=== PATIENT | male | born 1955 | race Caucasian/White ===

== ENCOUNTER 2020-03-29 08:04 | Outpatient (REF) | payer MEDICARE, OTHER, SELFPAY | END 2020-03-29 08:05 | disposition home or self-care (01) | LOC: HO.WFDLDS 08:04 | PROVIDERS: PCP Nurse Practitioner Family; Visit Provider Internal Medicine | DX: Z20.822 Contact with and (suspected) exposure to COVID-19 (principal) | CPT/HCPCS: 36415; C9803; U0003 ==

== ENCOUNTER 2020-05-05 16:24 | Outpatient (REF) | payer MEDICARE, OTHER, SELFPAY ==
--- NOTE | ~2020-05-05 | US_ITS ---
EXAMINATION: US SCROTUM CLINICAL INFORMATION: Scrotal swelling. 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 COMPARISON: None TECHNIQUE: A sonogram of the scrotum was performed assessing peters-scale appearance and color Doppler flow. Spectral Doppler analysis of the arterial and venous flow were performed in the testes bilaterally. FINDINGS: RIGHT: Right testicle measures 4.3 x 1.8 x 3.1 cm, volume 12.5 mL. No focal testicular parenchymal lesions are visualized. Spectral Doppler analysis of the arterial and venous flow is normal in the right testis. Right epididymal head is normal in size. There is a small epididymal head cyst measuring 0.4 x 0.4 x 0.4 cm. No right hydrocele or varicocele is seen. Right epididymal Doppler flow is normal. LEFT: Left testicle measures 4.2 x 1.6 x 3.0 cm, volume 10.5 mL. No focal testicular parenchymal lesions are visualized. There is a left scrotal pole measuring 0.3 x 0.2 x 0.2 cm. Spectral Doppler analysis of the arterial and venous flow is normal in the left testis. Left epididymal head is normal in size. There is small left epididymal head cyst with the largest cyst measuring 0.8 x 0.9 x 0.8 cm. No left hydrocele seen. There is a small left varicocele is seen. Left epididymal Doppler flow is normal. Posterior to the scrotal sac in the perineal area, there is a large fluid collection measuring 13.4 x 9.6 x 6.37 cm likely a scrotal seroma or a cyst from previous intervention. It does not communicate with the scrotal sac. There is an echogenic pump visualized in the posterior right scrotal wall. US/US scrotum IMPRESSION: Bilateral epididymal head cysts and a left varicocele. Normal testes with normal flow. The epididymides otherwise are homogeneous with normal vascular flow. Large posterior scrotal wall fluid collection/seroma or cyst. Also visualized more to the right side in the scrotal wall is an echogenic area likely a pump for artificial urinary sphincter.
== END 2020-05-05 16:25 | disposition home or self-care (01) ==
LOC: HO.US 16:24
PROVIDERS: Visit Provider Nurse Practitioner Family
DX: N50.89 Other specified disorders of the male genital organs (principal)
CPT/HCPCS: 76870

== ENCOUNTER 2020-05-10 09:48 | Outpatient (REF) | payer MEDICARE, OTHER, SELFPAY ==
[2020-05-10 14:08] LABS: Glucose Urine UA NEG (NEG); Leukocyte Esterase Urine 3+ (NEG); Nitrite Urine POS (NEG); UACC Culture Trigger YES; Urine Blood 1+ (NEG); Urine Ketones NEG (NEG); Urine Protein NEG (NEG-TRACE)
[2020-05-10 14:15] LABS: Appearance Urine HAZY; Color Urine YELLOW
[2020-05-10 14:42] LABS: Bacteria Urine 3+ /LPF; Squamous Epithelial Cell Urine TRACE /LPF; WBC Urine 50-75 /HPF (0-4)
== END 2020-05-10 09:49 | disposition home or self-care (01) ==
LOC: HO.10HDLNP 09:48
PROVIDERS: Visit Provider Nurse Practitioner Family
DX: Z87.440 Personal history of urinary (tract) infections (principal)
CPT/HCPCS: 81001; 81003; 87086; 87088; 87186

== ENCOUNTER 2020-06-10 10:46 | Outpatient (REF) | payer MEDICARE, OTHER, SELFPAY ==
[2020-06-10 14:30] LABS: MANUAL DIFF FLAG NO
[2020-06-10 14:34] LABS: Basophils Absolute Auto 0.1 X10*3/uL (0.0-0.2); Basophils Percent Auto 1.3 % (0-2); Eosinophils Absolute Auto 0.3 X10*3/uL (0.0-0.4); Eosinophils Percent Auto 5.5 % (0-4); Hematocrit 42.6 % (42-52); Hemoglobin 14.4 g/dl (14.0-18.0); Imm Gran Abs Auto 0.02 X10*3/uL (0.00-0.03); Imm Gran Pct Auto 0.4 % (0.0-0.4); Lymphocytes Percent Auto 20.9 % (20-40); Mean Corpuscular HGB Conc 33.8 g/dl (31.0-36.0); Mean Corpuscular Hemoglobin 35.2 pg (27.0-33.0); Mean Corpuscular Volume 104.2 fL (80-98); Mean Platelet Volume 10.7 fL (9.4-12.4); Monocytes Absolute Auto 0.7 X10*3/uL (0.1-1.2); Monocytes Percent Auto 14.3 % (2-11); Neutrophils Absolute Auto 2.7 X10*3/uL (2.0-8.3); Neutrophils Percent Auto 57.6 % (45-73); Platelet Count 213 X10*3/uL (160-400); Red Blood Count 4.09 X10*6/uL (4.60-5.80); Red Cell Distribution Width 13.6 % (11.0-16.0); White Blood Count 4.7 X10*3/uL (4.8-10.8)
[2020-06-10 14:57] LABS: Alanine Aminotransferase 11 U/L (0-40); Alkaline Phosphatase 59 U/L (39-117); Anion Gap 12 (12-20); Aspartate Amino Transferase 22 U/L (5-37); Bilirubin Total 0.9 mg/dL (0.0-1.0); Blood Urea Nitrogen 9 mg/dL (9-16); Calcium 9.2 mg/dL (8.4-10.2); Carbon Dioxide 32 mmol/L (22-29); Chloride 101 mmol/L (96-108); Cholesterol 234 mg/dL; Estimated Glomerular Filt Rate > 60; Glucose Fasting 87 mg/dL (60-99); HDL Cholesterol 76 mg/dL; LDL Cholesterol Calculated 148 mg/dl; Potassium 4.6 mmol/L (3.3-5.1); Sodium 140 mmol/L (135-145); Total Protein 6.9 g/dL (6.5-8.0); Triglycerides 53 mg/dL
[2020-06-10 15:19] LABS: TSH reflex Free T4 1.43 uIU/mL (0.32-4.0)
[2020-06-10 15:26] LABS: Glucose Urine UA NEG (NEG); Leukocyte Esterase Urine 2+ (NEG); Nitrite Urine POS (NEG); Specific Gravity - Urine 1.025 (1.005-1.025); Urine Blood 1+ (NEG); Urine Ketones NEG (NEG); Urine Protein NEG (NEG-TRACE)
[2020-06-10 15:39] LABS: Appearance Urine HAZY; Color Urine YELLOW
[2020-06-10 15:50] LABS: Prostate Specific Antigen Scr 0.12 ng/mL (<0.05-4.0)
[2020-06-10 16:19] LABS: Bacteria Urine 3+ /LPF; Squamous Epithelial Cell Urine TRACE /LPF; WBC Urine 30-49 /HPF (0-4)
== END 2020-06-10 10:47 | disposition home or self-care (01) ==
LOC: HO.WFDLDS 10:46
PROVIDERS: Visit Provider Nurse Practitioner Family
DX: R01.1 Cardiac murmur, unspecified (principal); E78.5 Hyperlipidemia, unspecified; R30.0 Dysuria; Z12.5 Encounter for screening for malignant neoplasm of prostate
CPT/HCPCS: 36415; 80053; 80061; 81001; 84153; 84443; 85025; 87086; 87088; 87186

== ENCOUNTER 2022-09-17 08:26 | Outpatient (REF) | payer MEDICARE, OTHER, SELFPAY ==
[2022-09-17 11:16] LABS: MANUAL DIFF FLAG NO
[2022-09-17 11:32] LABS: Appearance Urine Cloudy; Color Urine Dark Yellow; Glucose Urine UA Negative (Negative); Leukocyte Esterase Urine Moderate (2+) (Negative); Nitrite Urine Positive (Negative); PH 6.5 (5.0-9.0); Specific Gravity - Urine 1.025 (1.005-1.025); UMIC TRIGGER UACC YES; Urine Blood Trace (Negative); Urine Ketones Negative (Negative); Urine Protein 30 (1+) mg/dL (Neg-Trace)
[2022-09-17 11:47] LABS: Basophils Absolute Auto 0.1 X10*3/uL (0.0-0.2); Basophils Percent Auto 1.3 % (0-2); Eosinophils Absolute Auto 0.3 X10*3/uL (0.0-0.4); Eosinophils Percent Auto 5.8 % (0-4); Hemoglobin 14.7 g/dl (14.0-18.0); Imm Gran Abs Auto 0.01 X10*3/uL (0.00-0.03); Imm Gran Pct Auto 0.2 % (0.0-0.4); Lymphocytes Absolute Auto 0.9 X10*3/uL (1.2-4.9); Lymphocytes Percent Auto 19.3 % (20-40); Mean Corpuscular HGB Conc 34.2 g/dl (31.0-36.0); Mean Corpuscular Hemoglobin 35.6 pg (27.0-33.0); Mean Corpuscular Volume 104.1 fL (80.0-98.0); Monocytes Absolute Auto 0.7 X10*3/uL (0.1-1.2); Monocytes Percent Auto 14.7 % (2-11); Neutrophils Absolute Auto 2.6 x10*3/uL (2.0-8.3); Neutrophils Percent Auto 58.7 % (45-73); Platelet Count 261 X10*3/uL (160-400); Red Blood Count 4.13 X10*6/uL (4.60-5.80); White Blood Count 4.5 X10*3/uL (4.8-10.8)
[2022-09-17 11:50] LABS: Bacteria Urine 4+ (None Seen); Other Crystals Urine Present; RBC Urine 0-2 /HPF (0-2); UACC Culture Trigger YES; WBC Clumps Urine Present; WBC Urine 21-50 /HPF (0-5)
[2022-09-17 12:15] LABS: Prostate Specific Antigen Scr 0.21 ng/mL (<0.05-4.0)
[2022-09-17 12:34] LABS: Alanine Aminotransferase 13 U/L (0-40); Albumin Level 3.9 g/dL (3.5-5.0); Alkaline Phosphatase 63 U/L (39-117); Anion Gap 12 (12-20); Aspartate Amino Transferase 24 U/L (5-37); Bilirubin Total 1.4 mg/dL (0.0-1.0); Blood Urea Nitrogen 12 mg/dL (9-16); Calcium 9.4 mg/dL (8.4-10.2); Carbon Dioxide 27 mmol/L (22-29); Chloride 106 mmol/L (96-108); Cholesterol 233 mg/dL; Estimated Glomerular Filt Rate > 60; Glucose Fasting 88 mg/dL (60-99); HDL Cholesterol 73 mg/dL; LDL Cholesterol Calculated 148 mg/dl; Potassium 4.1 mmol/L (3.3-5.1); Sodium 141 mmol/L (135-145); TSH reflex Free T4 1.48 uIU/mL (0.32-4.0); Total Protein 7.1 g/dL (6.5-8.0); Triglycerides 61 mg/dL
== END 2022-09-17 08:27 | disposition home or self-care (01) ==
LOC: HO.WFDLDS 08:26
PROVIDERS: Visit Provider Nurse Practitioner Family
DX: Z12.5 Encounter for screening for malignant neoplasm of prostate (principal); E78.5 Hyperlipidemia, unspecified; G47.30 Sleep apnea, unspecified; Q89.01 Asplenia (congenital); R30.0 Dysuria; Z87.440 Personal history of urinary (tract) infections
CPT/HCPCS: 36415; 80053; 80061; 81001; 84153; 84443; 85025; 87086; 87088; 87186

== ENCOUNTER 2022-11-23 09:18 | Outpatient (REF) | payer MEDICARE, OTHER, SELFPAY ==
[2022-11-23 11:45] LABS: MANUAL DIFF FLAG NO
[2022-11-23 11:49] LABS: Basophils Absolute Auto 0.1 X10*3/uL (0.0-0.2); Basophils Percent Auto 0.8 % (0-2); Eosinophils Absolute Auto 0.2 X10*3/uL (0.0-0.4); Eosinophils Percent Auto 3.1 % (0-4); Hematocrit 43.6 % (42.0-52.0); Hemoglobin 14.8 g/dl (14.0-18.0); Imm Gran Abs Auto 0.03 X10*3/uL (0.00-0.03); Imm Gran Pct Auto 0.4 % (0.0-0.4); Lymphocytes Percent Auto 13.7 % (20-40); Mean Corpuscular HGB Conc 33.9 g/dl (31.0-36.0); Mean Corpuscular Hemoglobin 35.5 pg (27.0-33.0); Mean Corpuscular Volume 104.6 fL (80.0-98.0); Monocytes Percent Auto 13.4 % (2-11); Neutrophils Absolute Auto 4.9 x10*3/uL (2.0-8.3); Neutrophils Percent Auto 68.6 % (45-73); Platelet Count 273 X10*3/uL (160-400); Red Blood Count 4.17 X10*6/uL (4.60-5.80); Red Cell Distribution Width 13.2 % (11.0-16.0); White Blood Count 7.2 X10*3/uL (4.8-10.8)
[2022-11-23 12:24] LABS: Alanine Aminotransferase 13 U/L (0-40); Albumin Level 3.9 g/dL (3.5-5.0); Alkaline Phosphatase 69 U/L (39-117); Anion Gap 14 (12-20); Aspartate Amino Transferase 22 U/L (5-37); Bilirubin Total 1.1 mg/dL (0.0-1.0); Blood Urea Nitrogen 10 mg/dL (9-16); Calcium 9.7 mg/dL (8.4-10.2); Carbon Dioxide 25 mmol/L (22-29); Chloride 105 mmol/L (96-108); Cholesterol 179 mg/dL (<200); Estimated Glomerular Filt Rate > 60; Ferritin 120 ng/mL (20-250); Glucose Fasting 98 mg/dL (60-99); HDL Cholesterol 68 mg/dL (>40); Iron 121 mcg/dL (45-160); LDL Cholesterol Calculated 99 mg/dL (<100); Percent Iron Saturation 47 % (15-50); Potassium 3.9 mmol/L (3.3-5.1); Sodium 140 mmol/L (135-145); Total Iron Binding Capacity 258 mcg/dL (228-428); Total Protein 7.3 g/dL (6.5-8.0); Triglycerides 64 mg/dL (<150); Unsaturated Iron Binding 137 ug/dL
[2022-11-23 12:37] LABS: Folate 12.6 ng/mL (> or = 4.0); Vitamin B12 304 pg/mL (200-900)
== END 2022-11-23 09:19 | disposition home or self-care (01) ==
LOC: HO.WFDLDS 09:18
PROVIDERS: Visit Provider Nurse Practitioner Family
DX: Q89.01 Asplenia (congenital) (principal); E78.5 Hyperlipidemia, unspecified; D64.9 Anemia, unspecified; R53.83 Other fatigue
CPT/HCPCS: 36415; 80053; 80061; 82607; 82728; 82746; 83540; 85025

== ENCOUNTER 2023-02-22 10:19 | Outpatient (REF) | payer MEDICARE, OTHER, SELFPAY ==
[2023-02-22 10:39] LABS: Appearance Urine Cloudy; Color Urine Yellow; Glucose Urine UA Negative (Negative); Leukocyte Esterase Urine Moderate (2+) (Negative); Nitrite Urine Positive (Negative); PH 5.5 (5.0-9.0); UMIC TRIGGER UACC YES; Urine Blood Small (1+) (Negative); Urine Ketones Negative (Negative); Urine Protein Trace mg/dL (Neg-Trace)
[2023-02-22 11:13] LABS: Bacteria Urine 4+ (None Seen); Hyaline Casts Urine 0-2 /LPF (0-2); RBC Urine 0-2 /HPF (0-2); Squamous Epithelial Cell Urine 0-2 /HPF (0-2); UACC Culture Trigger YES; WBC Urine 21-50 /HPF (0-5)
== END 2023-02-22 10:20 | disposition home or self-care (01) ==
LOC: HO.LNP 10:19
PROVIDERS: Visit Provider Internal Medicine
DX: N39.0 Urinary tract infection, site not specified (principal)
CPT/HCPCS: 81001; 87086; 87088; 87186

== ENCOUNTER 2023-02-27 08:50 | Outpatient (AMB) | payer MEDICARE, OTHER, SELFPAY ==
--- NOTE | 2023-02-27 08:52 | A.OFFPC_ITS ---
Vital Signs 02/27/23 08:57 Height 5 ft 8 in Weight 169 lb 4 oz BMI 25.7 BP 126/82 Blood Pressure Location Rt brachial Position Sitting Pulse 70 Pulse Source Pulse Oximeter Pulse Oximetry (%) 98 Oxygen Delivery Method Room Air Intake Visit Reasons: Annual PE Intake Note: Patient here for physical exam and would like an Order to recheck UA in about 3 weeks since pt has had a UTI since last . Allergies lisinopril [LISINOPRIL] Allergy (Intermediate, Verified 02/27/23 08:59) COUGH metronidazole [Flagyl] Adverse Reaction (Unknown, Verified 02/27/23 08:59) GI Tobacco use date assessed: 09/19/22 Fall risk assessment: No Falls in past year Last assessed Fall Risk: 02/27/23 Dental Screening Dental Screen Date: 02/27/23 Did you have a dental visit in the last 12 months?: Yes Did you have a dental problem in the last 6 months where you did not have access to dental care?: No Was dental information given to patient?: Patient has dentist HPI Annual PE HPI Details NOT HERE FOR A PE. Pt reports UTI symptoms currently. He is currently taking an antibiotic. Will order UA/culture. Denies fever, chills, flank pain, and hematuria. Pt has a hx of radical prostatectomy several years ago. Pt's PSA has been increasing slightly. Will refer back to [facility] clinic. Pt has an extensive and traumatic history. Pt is waiting to see neuropsych. He is starting to be very forgetful with short-term memory loss. There is ? of dementia. 28/30 on mini mental. 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 Brother Pulmonary fibrosis Sister Leukemia Mental health disorder Sister Lupus Sister Breast cancer Social History Housing: House Alcohol intake: current Alcohol intake frequency: a few times a week Alcohol type: beer Patient Tobacco Use Status: Former Tobacco user Quit Date: quit 30 years ago Tobacco use type: Cigarette e-Cigarette/Vaping Use: Never Used service: No Current occupational status: retired Current occupational exposures/hazards: No Cognitive needs: No Hearing needs: No Vision needs: No Questionnaire AUDIT C Alcohol Use Questionnaire (AUDIT-C) 1. How often do you have a drink containing alcohol?: 2-3 times a week 2. How many drinks containing alcohol do you have on a typical day when you are drinking?: 1 or 2 3. How often do you have six or more drinks on one occasion?: Never Total Score: 3 Score Reviewed/Action Taken: No Review of Systems Const Reports as per HPI Physical exam (Primary Care) Vital Signs: Last Vital Signs Pulse 70 02/27/23 08:57 BP 126/82 02/27/23 08:57 Pulse Ox 98 02/27/23 08:57 Oxygen Delivery Method Room Air 02/27/23 08:57 BMI result Body Mass Index 25.7 Tobacco/Smoking Status: Tobacco use Status Tobacco use date assessed 09/19/22 02/27/23 08:52 Patient Tobacco Use Status Former Tobacco user 02/27/23 08:52 Tobacco use type Cigarette 02/27/23 08:52 e-Cigarette/Vaping Use Never Used 02/27/23 08:52 Const General: cooperative Orientation/consciousness: patient oriented x3 Resp Effort & Inspection: normal respiratory effort Auscultation: clear to auscultation bilaterally Cardio Rate: regular rate Rhythm: regular rhythm Heart sounds: S1 normal heart sound present and S2 normal heart sound present Neuro General: patient oriented x3 Cranial nerves: Yes CN's II-XII intact bilaterally Psych Appearance: grossly normal Mental Status: mental status grossly normal Speech and movement: Normal speech and movement present Affect: normal affect Attitude: cooperative Thought process: Normal thought process present Thought content: Normal thought content present Insight: Good insight present (Psych) Judgement: Good judgement present (Psych) Assessment and Plan Assessment & Plan (1) UTI (urinary tract infection): Code(s): N39.0 - Urinary tract infection, site not specified Plan: UA/culture ordered (2) Screening PSA (prostate specific antigen): Code(s): Z12.5 - Encounter for screening for malignant neoplasm of prostate Plan: PSA ordered Plan The patient agreed to the use of a medical sales consultant for this encounter. Scribed for MARY ANN Kenney-BC by timothy Ott scribe, on 02/27/2023 at 09:05 EST. Orders: Orders Urine Culture Today N39.0 - Urinary tract infection, site not specified UA CC w/rflx Micro + Cult Today N39.0 - Urinary tract infection, site not specified Prostate Specific Antigen Scr Today Z12.5 - Encounter for screening for malignant neoplasm of prostate Referrals Urology Referral Z12.5 - Encounter for screening for malignant neoplasm of prostate Medications: New amoxicillin-pot clavulanate 875-125 mg 1 tab PO BID 20 tabs 1RF 10 days Coding Level of Care Code Est Pt Level 3 (87908) Diagnoses UTI (urinary tract infection) N39.0 Screening PSA (prostate specific antigen) Z12.5
[2023-02-27 08:57] VITALS: BP 126/82; PULSE 70; O2SAT 98; BMI 25.7
== END 2023-02-27 12:06 | disposition home or self-care (01) ==
PROVIDERS: PCP Nurse Practitioner Family; Visit Provider Nurse Practitioner Family
DX: N39.0 Urinary tract infection, site not specified (principal); Z12.5 Encounter for screening for malignant neoplasm of prostate
CPT/HCPCS: 99213

== ENCOUNTER 2023-02-27 09:51 | Outpatient (REF) | payer MEDICARE, OTHER, SELFPAY ==
[2023-02-27 13:39] LABS: Appearance Urine Turbid; Color Urine Yellow; Glucose Urine UA Negative (Negative); Leukocyte Esterase Urine Trace (Negative); Nitrite Urine Negative (Negative); Specific Gravity - Urine 1.025 (1.005-1.025); UMIC TRIGGER UACC YES; Urine Blood Negative (Negative); Urine Ketones Trace mg/dL (Negative); Urine Protein Negative (Neg-Trace)
[2023-02-27 13:43] LABS: Bacteria Urine None Seen (None Seen); Hyaline Casts Urine 0-2 /LPF (0-2); RBC Urine 0-2 /HPF (0-2); UACC Culture Trigger YES
[2023-02-27 14:07] LABS: Prostate Specific Antigen Scr 0.26 ng/mL (<0.05-4.0)
== END 2023-02-27 09:52 | disposition home or self-care (01) ==
LOC: HO.HMGCLDS 09:51
PROVIDERS: PCP Nurse Practitioner Family; Visit Provider Nurse Practitioner Family
DX: N39.0 Urinary tract infection, site not specified (principal); Z12.5 Encounter for screening for malignant neoplasm of prostate
CPT/HCPCS: 36415; 81001; 84153; 87086

== ENCOUNTER 2023-06-26 09:27 | Outpatient (AMB) | payer MEDICARE, OTHER, SELFPAY ==
--- NOTE | 2023-06-26 09:34 | A.OFFPC_ITS ---
Vital Signs 06/26/23 09:43 Weight 169 lb BP 120/80 Blood Pressure Location Lt brachial Position Sitting Pulse 66 Pulse Source Pulse Oximeter Pulse Oximetry (%) 98 Oxygen Delivery Method Room Air Intake Visit Reasons: 4 Month F/U Labs Intake Note: Patient here for severe sinus pressure. Allergies lisinopril [LISINOPRIL] Allergy (Intermediate, Verified 06/26/23 12:53) COUGH metronidazole [Flagyl] Adverse Reaction (Unknown, Verified 06/26/23 12:53) GI Medication List - Last Reconciled 06/26/23 by TREVOR Ward amoxicillin-pot clavulanate 875-125 mg 1 tab PO BID 10 days donepezil 5 mg PO BEDTIME 90 days rosuvastatin (Crestor) 5 mg PO BEDTIME valacyclovir 1,000 mg PO DAILY PRN Tobacco use date assessed: 06/26/23 Fall risk assessment: No Falls in past year Last assessed Fall Risk: 06/26/23 Dental Screening Dental Screen Date: 06/26/23 Did you have a dental visit in the last 12 months?: Yes Did you have a dental problem in the last 6 months where you did not have access to dental care?: No Was dental information given to patient?: Patient has dentist HPI 4 Month F/U Labs HPI Details Pt c/o increased sinus pressure. He reports discomfort above and below his eye. Recommended OTC cetirizine up to 2 tabs bid. Denies fever, chills, and dizziness. Pt is following up with oncology due to prostate cancer. Memory loss: Pt scored 28/30 on mini mental exam previously. He reports ongoing memory loss. Starting donepezil today. Dyslipidemia: On rosuvastatin 5mg. Will order labs. Denies chest pain, shortness of breath, and dizziness. 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 Brother Pulmonary fibrosis Sister Leukemia Mental health disorder Sister Lupus Sister Breast cancer Social History Housing: House Alcohol intake: current Alcohol intake frequency: a few times a week Alcohol type: beer Patient Tobacco Use Status: Former Tobacco user Quit Date: quit 30 years ago Tobacco use type: Cigarette e-Cigarette/Vaping Use: Never Used service: No Current occupational status: retired Current occupational exposures/hazards: No Cognitive needs: No Hearing needs: No Vision needs: No Questionnaire AUDIT C Alcohol Use Questionnaire (AUDIT-C) 1. How often do you have a drink containing alcohol?: 4 or more times a week 2. How many drinks containing alcohol do you have on a typical day when you are drinking?: 1 or 2 3. How often do you have six or more drinks on one occasion?: Never Total Score: 4 Score Reviewed/Action Taken: No Review of Systems Const Reports as per HPI Physical exam (Primary Care) Vital Signs: Last Vital Signs Pulse 66 06/26/23 09:43 BP 120/80 06/26/23 09:43 Pulse Ox 98 06/26/23 09:43 Oxygen Delivery Method Room Air 06/26/23 09:43 Tobacco/Smoking Status: Tobacco use Status Tobacco use date assessed 06/26/23 06/26/23 09:44 Patient Tobacco Use Status Former Tobacco user 06/26/23 09:36 Tobacco use type Cigarette 06/26/23 09:36 e-Cigarette/Vaping Use Never Used 06/26/23 09:36 Const General: cooperative Orientation/consciousness: patient oriented x3 Resp Effort & Inspection: normal respiratory effort Auscultation: clear to auscultation bilaterally Cardio Rate: regular rate Rhythm: regular rhythm Heart sounds: S1 normal heart sound present and S2 normal heart sound present Neuro General: patient oriented x3 Extrem Right lower extremity: no edema Left lower extremity: no edema Psych Appearance: grossly normal Mental Status: mental status grossly normal Speech and movement: Normal speech and movement present Affect: normal affect Attitude: cooperative Thought process: Normal thought process present Thought content: Normal thought content present Insight: Good insight present (Psych) Judgement: Good judgement present (Psych) Results AMB Urinalysis, Automated UA Leukoctes 15 Giovanna/uL Last Edit by Albert Andrews CCM on 06/26/23 09:5 4 UA Nitrite Negative Last Edit by Albert Andrews [facility] on 06/26/23 09:54 UA Urobilinogen 0.2 mg/dL Last Edit by Albert Andrews [facility] on 06/26/23 09:54 UA Protein 15 mg/dL Last Edit by Albert Andrews [facility] on 06/26/23 09:54 UA pH 6.0 Last Edit by Albert Andrews [facility] on 06/26/23 09:54 UA Blood 0 Griffin/uL Last Edit by Albert Andrews [facility] on 06/26/23 09:54 UA Specific [place] 1.015 Last Edit by Albert Andrews [facility] on 06/26/23 09:54 UA Ketone Negative Last Edit by Albert Andrews [facility] on 06/26/23 09:54 UA Bilirubin 1 mg/dL Last Edit by Albert Andrews [facility] on 06/26/23 09:54 UA Glucose 0 mg/dL Last Edit by Albert Andrews [facility] on 06/26/23 09:54 Results Reviewed Results Reviewed: Laboratory Last Values Urine pH (Auto) 6.0 06/26/23 09:53 Specific [place] (Auto) 1.015 06/26/23 09:53 Urine Protein (Auto) 15 mg/dL 06/26/23 09:53 Glucose (UA)(Auto) 0 mg/dL 06/26/23 09:53 Urine Ketones (Auto) Negative 06/26/23 09:53 Urine Blood (Auto) 0 Griffin/uL 06/26/23 09:53 Urine Nitrite (Auto) Negative 06/26/23 09:53 Urine Bilirubin (Auto) 1 mg/dL 06/26/23 09:53 Urine Urobilinogen (Auto) 0.2 mg/dL 06/26/23 09:53 Leukocyte Esterase (Auto) 15 Giovanna/uL 06/26/23 09:53 Assessment and Plan Assessment & Plan (1) Dyslipidemia: Code(s): E78.5 - Hyperlipidemia, unspecified Plan: Labs ordered (2) Memory loss: Code(s): R41.3 - Other amnesia Plan: starting donepezil, pt will contact me with progress Plan The patient agreed to the use of a medical service technician for this encounter. Scribed for MARY ANN Kenney-NATY by Batsheva Sánchez medical service technician, on 06/26/2023 at 09:50 EST. Orders: Orders TSH reflex Free T4 Today E78.5 - Hyperlipidemia, unspecified UA CC w/rflx Micro + Cult Today E78.5 - Hyperlipidemia, unspecified Lipid Panel Today E78.5 - Hyperlipidemia, unspecified AMB Urinalysis Automated Today Z13.9 - Encounter for screening, unspecified Complete Blood Count Auto Diff Today E78.5 - Hyperlipidemia, unspecified Comprehensive [place]. Panel Fast Today E78.5 - Hyperlipidemia, unspecified Medications: New donepezil 5 mg PO BEDTIME 90 tabs 0RF 90 days Refilled amoxicillin-pot clavulanate 875-125 mg 1 tab PO BID 20 tabs 1RF 10 days Coding Level of Care Code Est Pt Level 3 (71148) Diagnoses Dyslipidemia E78.5 Memory loss R41.3
[2023-06-26 09:43] VITALS: BP 120/80; PULSE 66; O2SAT 98
== END 2023-06-26 12:17 | disposition home or self-care (01) ==
PROVIDERS: PCP Nurse Practitioner Family; Visit Provider Nurse Practitioner Family
DX: E78.5 Hyperlipidemia, unspecified (principal); R41.3 Other amnesia; Z13.9 Encounter for screening, unspecified
CPT/HCPCS: 81003; 99213

== ENCOUNTER 2023-07-08 09:53 | Outpatient (REF) | payer MEDICARE, OTHER, SELFPAY ==
[2023-07-08 11:13] LABS: MANUAL DIFF FLAG NO
[2023-07-08 11:27] LABS: Basophils Absolute Auto 0.1 X10*3/uL (0.0-0.2); Basophils Percent Auto 1.8 % (0-2); Eosinophils Absolute Auto 0.3 X10*3/uL (0.0-0.4); Eosinophils Percent Auto 6.5 % (0-4); Hematocrit 45.7 % (42.0-52.0); Hemoglobin 15.4 g/dl (14.0-18.0); Imm Gran Abs Auto 0.02 X10*3/uL (0.00-0.03); Imm Gran Pct Auto 0.4 % (0.0-0.4); Lymphocytes Absolute Auto 1.2 X10*3/uL (1.2-4.9); Lymphocytes Percent Auto 23.6 % (20-40); Mean Corpuscular HGB Conc 33.7 g/dl (31.0-36.0); Mean Corpuscular Hemoglobin 35.1 pg (27.0-33.0); Mean Corpuscular Volume 104.1 fL (80.0-98.0); Mean Platelet Volume 10.6 fL (9.4-12.4); Monocytes Absolute Auto 0.8 X10*3/uL (0.1-1.2); Monocytes Percent Auto 15.2 % (2-11); Neutrophils Absolute Auto 2.6 x10*3/uL (2.0-8.3); Neutrophils Percent Auto 52.5 % (45-73); Platelet Count 279 X10*3/uL (160-400); Red Blood Count 4.39 X10*6/uL (4.60-5.80); Red Cell Distribution Width 13.8 % (11.0-16.0)
[2023-07-08 11:32] LABS: Appearance Urine Cloudy; Color Urine Yellow; Glucose Urine UA Negative (Negative); Leukocyte Esterase Urine Moderate (2+) (Negative); Nitrite Urine Positive (Negative); PH 7.5 (5.0-9.0); UMIC TRIGGER UACC YES; Urine Blood Trace (Negative); Urine Ketones Negative (Negative); Urine Protein Trace mg/dL (Neg-Trace)
[2023-07-08 11:51] LABS: Alanine Aminotransferase 27 U/L (0-40); Albumin Level 3.9 g/dL (3.5-5.0); Alkaline Phosphatase 62 U/L (39-117); Anion Gap 11 (12-20); Aspartate Amino Transferase 50 U/L (5-37); Bilirubin Total 1.2 mg/dL (0.0-1.0); Blood Urea Nitrogen 10 mg/dL (9-16); Calcium 9.5 mg/dL (8.4-10.2); Carbon Dioxide 29 mmol/L (22-29); Chloride 105 mmol/L (96-108); Cholesterol 172 mg/dL (<200); Estimated Glomerular Filt Rate > 60; Glucose Fasting 92 mg/dL (60-99); HDL Cholesterol 71 mg/dL (>40); LDL Cholesterol Calculated 88 mg/dL (<100); Potassium 4.4 mmol/L (3.3-5.1); Sodium 141 mmol/L (135-145); Total Protein 7.5 g/dL (6.5-8.0); Triglycerides 67 mg/dL (<150)
[2023-07-08 12:10] LABS: TSH reflex Free T4 1.64 uIU/mL (0.32-4.0)
[2023-07-08 12:32] LABS: Bacteria Urine 4+ (None Seen); Squamous Epithelial Cell Urine 0-2 /HPF (0-2); UACC Culture Trigger YES; WBC Urine >50 /HPF (0-5)
== END 2023-07-08 09:54 | disposition home or self-care (01) ==
LOC: HO.WFDLDS 09:53
PROVIDERS: Visit Provider Nurse Practitioner Family
DX: E78.5 Hyperlipidemia, unspecified (principal); R82.90 Unspecified abnormal findings in urine
CPT/HCPCS: 36415; 80053; 80061; 81001; 84443; 85025; 87086; 87088; 87186

== ENCOUNTER 2023-07-17 09:42 | Outpatient (REF) | payer MEDICARE, OTHER, SELFPAY ==
--- NOTE | ~2023-07-17 | US_ITS ---
EXAMINATION: US ABDOMEN COMPLETE CLINICAL INFORMATION: Abnormal levels of other serum enzymes. COMPARISON: None available. TECHNIQUE: Real-time imaging of the abdominal viscera. FINDINGS: PANCREAS: The pancreas appears unremarkable, without masses or ductal dilatation, with the exception of the tail which is obscured by bowel gas. ABDOMINAL AORTA: Atherosclerotic changes in the aorta without evidence of aneurysm. INFERIOR VENA CAVA: Visualized portions are normal. LIVER: Normal. The liver is normal in size. The liver contour is normal. Parenchymal echogenicity is normal. No focal hepatic lesion. There is no intrahepatic biliary duct dilatation seen. GALLBLADDER: Normal. The gallbladder is physiologically distended without evidence of stones, sludge, polyps, wall thickening or pericholecystic fluid. COMMON BILE DUCT: Normal in caliber measuring 0.51 cm in diameter. RIGHT KIDNEY: A benign 1.4 cm Bosniak class I renal cyst is noted which requires no additional imaging or followup. No solid renal masses are seen. No hydronephrosis or renal calculi. The kidney measures 10.8 cm in maximum dimension. LEFT KIDNEY: No renal masses. No hydronephrosis. No renal calculi. The kidney measures 11.4 cm in maximum dimension. SPLEEN: The spleen is not seen. FREE FLUID: None. US/US abdomen complete IMPRESSION: No significant abnormality is seen.
== END 2023-07-17 09:43 | disposition home or self-care (01) ==
LOC: HO.HMGCX 09:42
PROVIDERS: PCP Nurse Practitioner Family; Visit Provider Nurse Practitioner Family
DX: R74.8 Abnormal levels of other serum enzymes (principal)
CPT/HCPCS: 76700

== ENCOUNTER 2023-08-07 11:14 | Outpatient (REF) | payer MEDICARE, OTHER, SELFPAY ==
[2023-08-07 14:30] LABS: Appearance Urine Cloudy; Color Urine Yellow; Glucose Urine UA Negative (Negative); Leukocyte Esterase Urine Moderate (2+) (Negative); Nitrite Urine Positive (Negative); PH 5.5 (5.0-9.0); Specific Gravity - Urine 1.025 (1.005-1.025); UMIC TRIGGER UACC YES; Urine Blood Small (1+) (Negative); Urine Ketones Trace mg/dL (Negative); Urine Protein Trace mg/dL (Neg-Trace)
[2023-08-07 14:41] LABS: Bacteria Urine 4+ (None Seen); Hyaline Casts Urine 0-2 /LPF (0-2); RBC Urine 0-2 /HPF (0-2); Squamous Epithelial Cell Urine 0-2 /HPF (0-2); UACC Culture Trigger YES
[2023-08-07 14:46] LABS: Alanine Aminotransferase 19 U/L (0-40); Albumin Level 3.8 g/dL (3.5-5.0); Alkaline Phosphatase 60 U/L (39-117); Anion Gap 11 (12-20); Aspartate Amino Transferase 28 U/L (5-37); Bilirubin Total 0.7 mg/dL (0.0-1.0); Blood Urea Nitrogen 14 mg/dL (9-16); Calcium 9.3 mg/dL (8.4-10.2); Carbon Dioxide 27 mmol/L (22-29); Chloride 107 mmol/L (96-108); Estimated Glomerular Filt Rate > 60; Glucose Random 97 mg/dL (60-115); Potassium 4.4 mmol/L (3.3-5.1); Sodium 141 mmol/L (135-145); Total Protein 7.3 g/dL (6.5-8.0)
[2023-08-07 15:05] LABS: Prostate Specific Antigen Scr 0.27 ng/mL (<0.05-4.0)
[2023-08-08 08:14] LABS: HBS Num1 60.54 mIU/mL (0-7.99); HBc Num1 0.14 S/CO (0.00-0.79); HBsAGNum1 0.29 S/CO (0.00-0.99); Hepatitis B Core Antibody Nonreactive (Nonreactive); Hepatitis B Surface Antigen Negative (Negative); ~HepC Num1 0.13 S/CO (0.00-0.79); ~Hepatitis A Antibody IgM Nonreactive (Nonreactive); ~Hepatitis B Surface Antibody REACTIVE (Nonreactive); ~Hepatitis C Antibody Nonreactive (Nonreactive)
== END 2023-08-07 11:15 | disposition home or self-care (01) ==
LOC: HO.WFDLDS 11:14
PROVIDERS: Visit Provider Nurse Practitioner Family
DX: R74.8 Abnormal levels of other serum enzymes (principal); Z12.5 Encounter for screening for malignant neoplasm of prostate; E78.5 Hyperlipidemia, unspecified; Q89.01 Asplenia (congenital); R30.0 Dysuria; G47.30 Sleep apnea, unspecified
CPT/HCPCS: 36415; 80053; 81001; 84153; 86704; 86706; 86709; 86803; 87086; 87088; 87186; 87340

== ENCOUNTER 2023-11-06 11:48 | Outpatient (REF) | payer MEDICARE, OTHER, SELFPAY ==
[2023-11-06 14:42] LABS: Appearance Urine Cloudy; Color Urine Dark Yellow; Glucose Urine UA Negative (Negative); Leukocyte Esterase Urine Small (1+) (Negative); Nitrite Urine Positive (Negative); PH 5.5 (5.0-9.0); Specific Gravity - Urine 1.025 (1.005-1.025); UMIC TRIGGER UACC YES; Urine Blood Moderate (2+) (Negative); Urine Ketones Negative (Negative); Urine Protein Trace mg/dL (Neg-Trace)
[2023-11-06 14:58] LABS: Bacteria Urine 4+ (None Seen); Hyaline Casts Urine 0-2 /LPF (0-2); UACC Culture Trigger YES; WBC Urine >50 /HPF (0-5)
[2023-11-06 15:04] LABS: Prostate Specific Antigen Scr 0.37 ng/mL (<0.05-4.0)
== END 2023-11-06 11:49 | disposition home or self-care (01) ==
LOC: HO.WFDLDS 11:48
PROVIDERS: Visit Provider Nurse Practitioner Family
DX: Z12.5 Encounter for screening for malignant neoplasm of prostate (principal); R97.20 Elevated prostate specific antigen [PSA]; N39.0 Urinary tract infection, site not specified
CPT/HCPCS: 36415; 81001; 84153; 87086; 87088; 87186

== ENCOUNTER 2023-11-20 11:12 | Outpatient (AMB) | payer MEDICARE, OTHER, SELFPAY ==
--- NOTE | 2023-11-20 11:22 | A.OFFPC_ITS ---
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 He is seeing oncology. Pt is being continuously monitored. He would not like radiation currently. Dyslipidemia: Will order labs. Pt's will call about his colon screen. Denies fever, chills, and dizziness. Poison Candida reported to right forearm, though starting to dry up. Memory issues: currently doing fair, pt notices no new changes, will continue med at current dose. 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 Brother Pulmonary fibrosis Sister Leukemia Mental health disorder Sister Lupus Sister Breast cancer Social History Housing: House Alcohol intake: current Alcohol intake frequency: a few times a week Alcohol type: beer Patient Tobacco Use Status: Former Tobacco user Tobacco use type: Cigarette e-Cigarette/Vaping Use: Never Used service: No Current occupational status: retired Current occupational exposures/hazards: No Cognitive needs: No Hearing needs: No Vision needs: No Questionnaire PHQ-9 Over the last 2 weeks, how often have you been bothered by any of the following problems? 1. Little interest or pleasure in doing things: not at all 2. Feeling down, depressed, or hopeless: not at all 3. Trouble falling or staying asleep, or sleeping too much: not at all 4. Feeling tired or having little energy: several days 5. Poor appetite or overeating: not at all 6. Feeling bad about yourself - or that you are a failure or have let yourself or your family down: not at all 7. Trouble concentrating on things, such as reading the newspaper or watching television: not at all 8. Moving or speaking so slowly that other people could have noticed. Or the opposite - being so fidgety or restless that you have been moving around a lot more than usual: not at all 9. Thoughts that you would be better off or of hurting yourself in some way: not at all Total score: 1 Depression Screening Interpretation: Negative Depression Screening Done: Yes 76194 - PHQ-9 Billing: Yes Source: Developed by Drs. Daron Bae, Che Rodriguez, Tin Sierra and colleagues, with an educational joanna from [employer]. Thrive Questionnaire Date Thrive assessed: 11/20/23 I am a: Patient What is your living situation today?: I have a steady place to live Within the past 12 months, did the food you bought not last and you didn't have the money to get more?: Never true Within the past 12 months, did you worry whether your food would run out before you got money to buy more?: Never true Do you have trouble paying for medicines?: No Do you have trouble getting transportation to medical appointments?: No Do you have trouble paying your heating and electricity bill?: No Do you have trouble taking care of your child, family member or friend?: No Do you have trouble with day-to-day activities such as bathing, preparing meals, shopping, managing finances, etc.?: No Are you currently unemployed and looking for a job?: No Are you interested in more education?: No Please select the resources that you would like help with: None Currently or been in a relationship where the following occur: No concerns reported THRIVE Score: 0 AUDIT C Alcohol Use Questionnaire (AUDIT-C) 1. How often do you have a drink containing alcohol?: 4 or more times a week 2. How many drinks containing alcohol do you have on a typical day when you are drinking?: 1 or 2 3. How often do you have six or more drinks on one occasion?: Never Total Score: 4 Score Reviewed/Action Taken: Yes BARB-7 AMB Questionnaire BARB-7 Date BARB - 7 assessed: 11/20/23 Feeling nervous, anxious, or on edge: 0 = Not at all Not being able to stop or control worryin = Not at all Worrying too much about different things: 0 = Not at all Trouble relaxin = Not at all Being so restless that it is hard to sit still: 0 = Not at all Becoming easily annoyed or irritable: 0 = Not at all Feeling afraid as if something awful might happen: 0 = Not at all Total BARB-7 score (0-4 normal; 5-9 mild; 10-14 moderate; 15-21 severe): 0 Source: Developed by Drs. Daron Bae, Che Rodriguez, Tin Sierra and colleagues, with an educational joanna from [employer]. BARB-7 Assessment Billing BARB-7 Assessment Tool: BARB-7 Assessment 89853 Review of Systems Const Reports as per HPI Physical exam (Primary Care) Vital Signs: Last Vital Signs Pulse 76 11/20/23 11:23 BP 138/80 11/20/23 11:23 Pulse Ox 97 11/20/23 11:23 Oxygen Delivery Method Room Air 11/20/23 11:23 BMI result Body Mass Index 26.0 Tobacco/Smoking Status: Tobacco use Status Tobacco use date assessed 06/26/23 11/20/23 11:26 Patient Tobacco Use Status Former Tobacco user 11/20/23 11:26 Tobacco use type Cigarette 11/20/23 11:26 e-Cigarette/Vaping Use Never Used 11/20/23 11:26 PHQ-9: PHQ-9 Score PHQ-9: Total score 1 11/20/23 11:40 Depression Screening Interpretation: Negative Thrive Assessment: Date of Thrive Assessment Date Thrive assessed 11/20/23 11/20/23 11:26 Currently or been in a relationship where the following occur: No concerns reported Const General: cooperative Orientation/consciousness: patient oriented x3 Resp Effort & Inspection: normal respiratory effort Auscultation: clear to auscultation bilaterally Cardio Rate: regular rate Rhythm: regular rhythm Heart sounds: S1 normal heart sound present and S2 normal heart sound present Skin Other: small vesicles to dorsal right forearm, linear pattern Neuro General: patient oriented x3 Psych Appearance: grossly normal Mental Status: mental status grossly normal Speech and movement: Normal speech and movement present Affect: normal affect Attitude: cooperative Thought process: Normal thought process present Thought content: Normal thought content present Insight: Good insight present (Psych) Judgement: Good judgement present (Psych) Assessment and Plan Assessment & Plan (1) Dyslipidemia: Code(s): E78.5 - Hyperlipidemia, unspecified Plan: labs ordered (2) Memory loss: Code(s): R41.3 - Other amnesia Plan: on donepezil, no new changes for the worst...continue current dose (3) Poison candida dermatitis: Code(s): L23.7 - Allergic contact dermatitis due to plants, except food Plan: may use calamine to help dry the lesions (4) History of prostatectomy: Comment: 2014 Code(s): Z90.79 - Acquired absence of other genital organ(s) Plan: PSA is slowly rising, pt is following up with oncology Plan The patient agreed to the use of a medical assistant internal medicine for this encounter. Scribed for JEROD Kenney by Batsheva Sánchez medical assistant internal medicine, on 11/20/2023 at 11:40 EST. Orders: Orders Complete Blood Count Auto Diff Today E78.5 - Hyperlipidemia, unspecified Comprehensive [place]. Panel Fast Today E78.5 - Hyperlipidemia, unspecified TSH reflex Free T4 Today E78.5 - Hyperlipidemia, unspecified UA CC w/rflx Micro + Cult Today E78.5 - Hyperlipidemia, unspecified Lipid Panel Today E78.5 - Hyperlipidemia, unspecified Coding Level of Care Code Est Pt Level 3 (42910) Diagnoses Dyslipidemia E78.5 Memory loss R41.3 Poison candida dermatitis L23.7 History of prostatectomy Z90.79 Additional Codes BARB-7 Assessment Billing - BARB-7 Assessment Tool: BARB-7 Assessment 58045 ([id number])
[2023-11-20 11:23] VITALS: BP 138/80; PULSE 76; O2SAT 97; BMI 26.0
== END 2023-11-20 13:09 | disposition home or self-care (01) ==
PROVIDERS: PCP Nurse Practitioner Family; Visit Provider Nurse Practitioner Family
DX: E78.5 Hyperlipidemia, unspecified (principal); R41.3 Other amnesia; L23.7 Allergic contact dermatitis due to plants, except food; Z90.79 Acquired absence of other genital organ(s)
CPT/HCPCS: 99213

== ENCOUNTER 2024-01-21 12:15 | Outpatient (REF) | payer MEDICARE, OTHER, SELFPAY ==
[2024-01-21 12:23] LABS: Appearance Urine Turbid; Color Urine Yellow; Glucose Urine UA Negative (Negative); Leukocyte Esterase Urine Moderate (2+) (Negative); Nitrite Urine Positive (Negative); Specific Gravity - Urine 1.025 (1.005-1.025); UMIC TRIGGER UACC YES; Urine Blood Moderate (2+) (Negative); Urine Ketones Trace mg/dL (Negative); Urine Protein 30 (1+) mg/dL (Neg-Trace)
[2024-01-21 12:41] LABS: Bacteria Urine 4+ (None Seen); Hyaline Casts Urine 0-2 /LPF (0-2); UACC Culture Trigger YES; WBC Urine >50 /HPF (0-5)
== END 2024-01-21 12:16 | disposition home or self-care (01) ==
LOC: HO.LNP 12:15
PROVIDERS: Visit Provider Internal Medicine
DX: N39.0 Urinary tract infection, site not specified (principal)
CPT/HCPCS: 81001; 87086; 87088; 87186

== ENCOUNTER 2024-02-12 15:18 | Outpatient (REF) | payer MEDICARE, OTHER, SELFPAY ==
[2024-02-12 17:49] LABS: Appearance Urine Turbid; Color Urine Yellow; Glucose Urine UA Negative (Negative); Leukocyte Esterase Urine Negative (Negative); Nitrite Urine Negative (Negative); PH 5.5 (5.0-9.0); Urine Blood Negative (Negative); Urine Ketones Negative (Negative); Urine Protein Trace mg/dL (Neg-Trace)
[2024-02-12 18:26] LABS: Prostate Specific Antigen Scr 0.35 ng/mL (<0.05-4.0)
== END 2024-02-12 15:19 | disposition home or self-care (01) ==
LOC: HO.WFDLDS 15:18
PROVIDERS: Visit Provider Nurse Practitioner Family
DX: N39.0 Urinary tract infection, site not specified (principal); R97.20 Elevated prostate specific antigen [PSA]; Z12.5 Encounter for screening for malignant neoplasm of prostate
CPT/HCPCS: 36415; 81003; 84153; 87086

== ENCOUNTER 2024-03-04 08:53 | Outpatient (AMB) | payer MEDICARE, OTHER, SELFPAY ==
--- NOTE | 2024-03-04 08:55 | MHC.PC.OV ---
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: No Accompanied by: Self / Same As Patient Allergies lisinopril [LISINOPRIL] Allergy (Intermediate, Verified 03/04/24 08:55) COUGH metronidazole [Flagyl] Adverse Reaction (Unknown, Verified 03/04/24 08:55) GI Medication List - Last Reconciled 03/04/24 by TREVOR Ward cetirizine (Zyrtec) 20 mg PO DAILY PRN donepezil 5 mg PO BEDTIME 90 days meloxicam 15 mg PO DAILY PRN 30 days rosuvastatin 5 mg PO BEDTIME valacyclovir 1,000 mg PO DAILY PRN 90 days Tobacco use date assessed: 06/26/23 Fall risk assessment: No Falls in past year Last assessed Fall Risk: 03/04/24 Dental Screening Dental Screen Date: 06/26/23 HPI HPI Comments History of Present Illness Details Pt is here for a PE. Pt sees oncology, urology, derm, and ENT. Pt/pt's reports the pt is not currently due for a colon screen. radiation to neck previously, does have some dysphagia, ENT apparently reported larynoscopy was benign, pt did have esophageal dilation x3 over the years. Encouraged pt to call his GI specialist in the very future. 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 Brother Pulmonary fibrosis Sister Leukemia Mental health disorder Sister Lupus Sister Breast cancer Social History Housing: House Alcohol intake: current Alcohol intake frequency: a few times a week Alcohol type: beer Patient Tobacco Use Status: Former Tobacco user Tobacco use type: Cigarette e-Cigarette/Vaping Use: Never Used service: No Current occupational status: retired Current occupational exposures/hazards: No Cognitive needs: No Hearing needs: No Vision needs: No Questionnaire PHQ-9 Over the last 2 weeks, how often have you been bothered by any of the following problems? 66563 - PHQ-9 Billing: Patient declined-do not bill Source: Developed by Drs. Daron Bae, Che Rodriguez, Tin Sierra and colleagues, with an educational joanna from [employer]. Thrive Questionnaire Date Thrive assessed: 11/13/23 I am a: Patient What is your living situation today?: I have a steady place to live Within the past 12 months, did the food you bought not last and you didn't have the money to get more?: Never true Within the past 12 months, did you worry whether your food would run out before you got money to buy more?: Never true Do you have trouble paying for medicines?: No Do you have trouble getting transportation to medical appointments?: No Do you have trouble paying your heating and electricity bill?: No Do you have trouble taking care of your child, family member or friend?: No Do you have trouble with day-to-day activities such as bathing, preparing meals, shopping, managing finances, etc.?: No Are you currently unemployed and looking for a job?: No Are you interested in more education?: No Please select the resources that you would like help with: None Currently or been in a relationship where the following occur: No concerns reported THRIVE Score: 0 BARB-7 AMB Questionnaire BARB-7 Date BARB - 7 assessed: 11/20/23 Source: Developed by Drs. Daron Bae, Che Rodriguez, Tin Sierra and colleagues, with an educational joanna from [employer]. BARB-7 Assessment Billing BARB-7 Assessment Tool: BARB-7 Assessment 51909 Review of Systems Const Denies chills and Denies fever(s) Eyes Denies blurry vision ENT Denies vertigo, Denies dizziness and Denies sore throat Card Denies chest pain at rest, Denies chest pain with activity, Denies diaphoresis, Denies dyspnea and Denies dyspnea on exertion Resp Denies cough, Denies dyspnea, Denies dyspnea on exertion and Denies wheezing GI Denies abdominal pain, Denies melena, Denies hematochezia, Denies constipation, Denies diarrhea and Denies loose stools Details: intermittent incont Denies hematuria Musc Denies numbness and Denies tingling Skin/Breast Denies lesions Neuro Denies vertigo, Denies dizziness, Denies numbness and Denies tingling Psych Denies anxiety, Denies depression, Denies homicidal ideation, Denies suicidal ideation and Denies other (substance abuse) Aller/Immun Denies wheezing Physical exam (Primary Care) Vital Signs: Last Vital Signs Pulse 69 03/04/24 08:56 BP 130/72 03/04/24 08:56 Pulse Ox 98 03/04/24 08:56 BMI result Body Mass Index 26.5 Tobacco/Smoking Status: Tobacco use Status Tobacco use date assessed 06/26/23 03/04/24 08:59 Patient Tobacco Use Status Former Tobacco user 03/04/24 08:59 Tobacco use type Cigarette 03/04/24 08:59 e-Cigarette/Vaping Use Never Used 03/04/24 08:59 Thrive Assessment: Date of Thrive Assessment Date Thrive assessed 11/13/23 03/04/24 08:59 Currently or been in a relationship where the following occur: No concerns reported Const General: cooperative Nutritional Appearance: well nourished Orientation/consciousness: patient oriented x3 HENMT Head: Yes normal to inspection, Yes normocephalic and Yes atraumatic Ears: TM normal on the right and TM normal on the left (tube intact) Eyes General: appearance normal, both eyes and all related structures Alignment and Position: alignment normal and position normal Neck Other: induration noted to anterior/lateral neck (significant radiation previously) Neck: Yes no lymphadenopathy Resp Effort & Inspection: normal respiratory effort Auscultation: clear to auscultation bilaterally Cardio Rate: regular rate Rhythm: regular rhythm Heart sounds: S1 normal heart sound present, S2 normal heart sound present and no murmurs GI Palpation (GI): Soft to palpation and nontender Auscultation: normal bowel sounds Male General Exam: Yes normal external exam Penis: normal penis Scrotum: scrotum normal, testes descended bilaterally and no inguinal hernias Testes: no testicular mass Skin Rashes: no rashes Neuro General: patient oriented x3, moves all extremities, no focal motor deficits and deep tendon reflexes 2+ bilaterally Romberg Test: Negative Extrem Right lower extremity: no edema Left lower extremity: no edema Psych Affect: normal affect Attitude: cooperative Thought process: Normal thought process present Coding Level of Care Code Est Pt Prev Care >65y(98948) Diagnoses Physical exam Z00.00 Additional Codes BARB-7 Assessment Billing - BARB-7 Assessment Tool: BARB-7 Assessment 61994 ([id number]) Assessment & Plan Assessment & Plan (1) Physical exam: Code(s): Z00.00 - Encounter for general adult medical examination without abnormal findings Category: Medical Plan .
[2024-03-04 08:56] VITALS: BP 130/72; PULSE 69; O2SAT 98; BMI 26.5
--- OUTSIDE RECORDS SUMMARY | 2024-03-04 23:16 | XMS_ITS ---
Author Organization Carson Gilmore MD Address [address] [place] [address] [phone] Care Team Providers Care Regional Facilities Manager Name Role Phone Carson Gilmore Primary Care Provider RESULTS Component Value Reference Range Notes UA ClnCatch+Micro w/rflx Cul t Reviewed date:01/21/2024 04:21:26 PM Interpretation: Performing Lab:[facility], [address] [place] [phone] Notes/Report: Urine, Clean Catch Color Urine Yellow Appearance Urine Turbid PH 6.0 5.0-9.0 Glucose Urine UA Negative Negative mg/dL Urine Blood Moderate (2+) Negative Specific [place] - Urine 1.025 1.005-1.025 Urine Protein 30 (1+) Neg-Trace mg/dL Urine Ketones Trace Negative mg/dL Nitrite Urine Positive Negative Leukocyte Esterase Urine Moderate (2+) Negative RBC Urine 3-5 0-2 /HPF WBC Urine >50 0-5 /HPF Squamous Epithelial Cell Urine 3-5 0-2 /HPF Bacteria Urine 4+ None Seen Hyaline Casts Urine 0-2 0-2 /LPF REASON FOR VISIT ua Encounters Encounter Location Date Provider Diagnosis Carson Gilmore MD [address] [place] [address] [phone] 01/21/2024 Carson Gilmore UTI (urinary tract infection) N39.0 ASSESSMENTS Encounter Date Diagnosis Assessment Notes Treatment Notes Treatment Clinical Notes 01/21/2024 UTI (urinary tract infection) (ICD-10 - N39.0) PLAN OF TREATMENT No Information
--- OUTSIDE RECORDS SUMMARY | 2024-03-04 23:16 | XMS_ITS ---
Author Organization Carson Gilmore MD Address [address] [place] [address] [phone] Care Team Providers Care Fern Gatherer Name Role Phone Carson Gilmore Primary Care Provider [phone] REASON FOR VISIT ? UTI MEDICATIONS Medication SIG (Take, Route, Fr equency, Duration) Notes Start Date End Date Status Cephalexin 500 MG 1 capsule Orally twi ce a day for 7 days 02/22/2023 Active Encounters Encounter Location Date Provider Diagnosis Carson Gilmore MD [address] [place] [phone] 02/22/2023 Carson Gilmore Urinary tract infection without hematuria, site unspecified N39.0 ASSESSMENTS Encounter Date Diagnosis Assessment Notes Treatment Notes Treatment Clinical Notes 02/22/2023 Urinary tract infection without hematuria, site unspecified (ICD-10 - N39.0) PLAN OF TREATMENT Medication Medication Name Sig Start Date Stop Date Notes Cephalexin 500 MG 1 capsule Orally twice a day for 7 days 02/22/2023
--- OUTSIDE RECORDS SUMMARY | 2024-03-04 23:16 | XMS_ITS | Data Portability ---
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 Reviewed tympanometry with the patient which was type C but exam is concerning for fluid. FOL was reassuring that there is no recurrence of his cancer. We offered the patient diagnostic myringotomy and possible tube placement and he would like to proceed with this. Informed Consent for left Myringotomy with Tympanostomy Tube Placement I discussed the risks, benefits and alternatives to tympanostomy and tubes, as well as the procedure itself, in detail. The surgical risks, including, though not limited to ear infection, permanent perforation, loss of hearing, postoperative drainage and allergic reactions to medication or materials as well as the anesthetic risks were discussed. We discussed the risk of senior living perforation following tube extrusion, with possible need for formal tympanoplasty in the future. We also discussed that if the tube remains in place for longer than 3 years, an additional procedure may be required to remove the tube. We discussed the need to maintain water precautions following this procedure for 2 weeks, then water precautions typically lifted. After full discussion, the patient would like to proceed with procedure. A prescription for 3 days topical antibiotics is sent to pharmacy. Follow-up in the office in [address] Edwards for cancer surveillance and tube check. Patient was seen and examined by Dr. Edwards. Iveth Larson PA-C functioned as a scribe for this visit. Exam and Laryngoscopy showed no evidence of disease. We will continue routine surveillance. [email or web address] Not available 01/27/2024 12:23:17 Plan of Treatment Reminders Order Date Submit Date Provider Last Modified By Organization Details Last Modified Time Details Appointments Establish ed 30 2024 09:00A Ratna Shaffer MD Not available Not available Not available Lab None recorded. Referral None recorded. Procedures None recorded. Surgeries None recorded. Imaging None recorded. Medication Orders ofloxacin 0.3 % ear drops 2023 024 [facility] #[id number], [address] [place], [address], 01/24/2024 10:10:49 Patient TargetsNo targets recorded. Patient InstructionsNo instructions recorded. Reason for Referral None Reported. Results Created Date Observation Date Name Description Value Unit Range Abnormal Flag Note LastModifiedBy Organization Detail LastModifiedTime 10/10/19 audio gram No observ ation record ed. [email or web address] Not Available 09/22 14:07:58 11/12/19 24 08/07/2022 imagi ng/di agnos tic resul t No observ ation record ed. [email or web address] Not Available 15:12:35 11/12/19 24 08/17/2022 imagi ng/di agnos tic resul t No observ ation record ed. [email or web address] Not Available 15:12:36 11/12/19 24 08/17/2022 imagi ng/di agnos tic resul t No observ ation record ed. [email or web address] Not Available 15:12:37 11/12/19 24 09/28/2020 imagi ng/di agnos tic resul t No observ ation record ed. [email or web address] Not Available 15:12:45 11/12/19 24 10/29/2019 imagi ng/di agnos tic resul t No observ ation record ed. [email or web address] Not Available 15:12:47 11/12/19 24 11/19/2018 imagi ng/di agnos tic resul t No observ ation record ed. [email or web address] Not Available 15:12:51 11/12/1903/24/2019 imagi ng/di agnos tic resul t No observ ation record ed. [email or web address] Not Available 15:13:00 11/12/19 24 08/07/2022 audio gram No observ ation record ed. [email or web address] Not Available 15:13:31 11/12/19 24 12/05/2022 audio gram No observ ation record ed. [email or web address] Not Available 15:13:41 11/12/19 24 03/24/2019 audio gram No observ ation record ed. [email or web address] Not Available 15:13:48 01/24/20 audio gram No observ ation record ed. [email or web address] Not Available 2023 14:43:29 Result Notes None recorded. Problems Name Problem SNOMED Code Status Onset Date Resolution Date Notes Provider Name and Address Organization Details Recorded Time Taste sense altered 270571715 Active 2018 Parage[employer] a; Note: Date Diagnosed : 05/07/2018 3:32 PM (R43.2) Not Available [facility] 4 02:40:44 Neck pain 59614442 Active 2021 Cervicalg ia; Note: Date Diagnosed : 10/03/2021 11:24 AM (M54.2) Not Available [facility] 4 02:40:47 History of malignant neoplasm of oral cavity 320468292 Active 2017 Personal history of malignant neoplasm of other sites of lip, oral cavity, and pharynx; Note: Date Diagnosed : 8 2:48 PM (Z85.818) Not Available [facility] 4 02:40:39 General unsteadin ess 301650889 Active 2018 Unsteadin ess on feet; Note: Date Diagnosed : 11/18/2018 11:18 AM (R26.81) Not Available [facility] 4 02:40:42 Disorder of smell 495613072 Active 2018 Other disturban irene of smell and taste; Note: Date Diagnosed : 11/18/2018 11:12 AM (R43.8) Not Available [facility] 4 02:40:48 Disorder of taste 165249994 Active 2018 Other disturban irene of smell and taste; Note: Date Diagnosed : 11/18/2018 11:12 AM (R43.8) Not Available [facility] 4 02:40:48 Impacted cerumen in left ear 18012323812 70833 Active 2016 Impacted cerumen, left ear; Note: Date Diagnosed : 08/15/2016 9:37 AM (H61.22) Not Available [facility] 4 02:40:46 Xerostomi a 01334900 Active 2018 Dry mouth, unspecifi ed; Note: Date Diagnosed : 05/07/2018 3:32 PM (R68.2) Not Available [facility] 4 02:40:50 Dizziness and giddiness 189812305 Active 2018 Dizziness and giddiness ; Note: Date Diagnosed : 9 11:50 AM (R42) Not Available [facility] 4 02:40:45 Nasal congestio n 74731192 Active 2018 Nasal congestio n; Note: Date Diagnosed : 05/07/2018 3:32 PM (R09.81) Not Available [facility] 4 02:40:44 Follow-up visit Active 2019 Encounter for follow-up examinati on after completed treatment for malignant neoplasm; Note: Date Diagnosed : 09/09/2019 2:33 PM (Z08) Medical surveilla nce following completed treatment ; Note: Date Diagnosed : 8 11:54 AM (Z09) ; Start Date : 8 Not Available [facility] 4 02:40:46 Mass of neck 247335948 Active 2016 Localized swelling, mass and lump, neck; Note: Date Diagnosed : 08/15/2016 9:37 AM (R22.1) Not Available [facility] 4 02:40:49 Neck swelling 793951887 Active 2016 Localized swelling, mass and lump, neck; Note: Date Diagnosed : 08/15/2016 9:37 AM (R22.1) Not Available [facility] 4 02:40:50 Sensorine ural hearing loss of bilateral ears 463549417 Active 2018 Sensorine ural hearing loss, bilateral ; Note: Date Diagnosed : 9 11:12 AM (H90.3) Not Available [facility] 4 02:40:42 Dysphagia 36591104 Active 2018 Dysphagia , unspecifi ed; Note: Date Diagnosed : 9 11:55 AM (R13.10) Not Available [facility] 4 02:40:49 Recurrent aphthous stomatiti s 997977906 Active 2018 Aphthous stomatiti s (major) (minor); Note: Date Diagnosed : 08/12/2018 11:08 AM (K12.0) Not Available [facility] 4 02:40:48 Dysphonia 86607080 Active 2018 Hoarsenes s; Note: Date Diagnosed : 9 11:58 AM (R49.0) Not Available [facility] 4 02:40:44 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 02130223 Active 2016 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, face and neck; Note: Date Diagnosed : 08/31/2016 2:41 PM (C77.0) Not Available [facility] 4 02:40:38 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 51092174 Active 2016 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, face and neck; Note: Date Diagnosed : 08/31/2016 2:41 PM (C77.0) Not Available [facility] 4 02:40:38 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 88592086 Active 2016 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, face and neck; Note: Date Diagnosed : 08/31/2016 2:41 PM (C77.0) Not Available [facility] 4 02:40:38 Impacted cerumen of bilateral ears 42941576644 62944 Active 2017 Impacted cerumen, bilateral ; Note: Date Diagnosed : 06/26/2017 11:13 AM (H61.23) Not Available [facility] 4 02:40:39 Chronic pansinusi tis 98006240 Active 2022 Chronic pansinusi tis; Note: Date Diagnosed : 08/23/2022 5:22 PM (J32.4) Not Available [facility] 4 02:40:45 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); Note: Date Diagnosed : 09/20/2017 4:21 PM (M27.2) Not Available [facility] 4 02:40:47 Primary malignant neoplasm of unknown site 777470453 Active 2023 JESUS MANUEL EDWARDS MD [address] [facility],[place] [address], [place], [address] , [facility] - [facility] 4 14:44:49 Tinnitus of left ear 49291235269 06 Active 2023 JESUS MANUEL EDWARDS MD [address] [facility],[place] [address], [place], [address] , [facility] - [facility] 4 14:47:04 Disorder of left Eustachia n tube 58174958254 87163 Active 2023 Siria MCCURDY [address] [facility],[place] [address], [place], [address] , [facility] - [facility] 4 09:28:47 Problem Notes None recorded. Procedures Surgical History Date Name Laterality Status Provider Name and Address Organization Details Recorded Time 01/24/20 24 Myringotomy w/Placement of Tube left completed IVETH LARSON PA-C [address] [facility],[place] [address], [place], [address], [facility] 01/24/2024 13:01:59 01/24/20 24 FOL_DP completed IVETH LARSON PA-C [address] [facility],[place] [address], [place], [address], [place] - [facility] [place] 01/24/2024 13:01:41 01/24/20 24 Tympanometry (77598) completed HARSHA BIGGS, Siria [address], [address], [facility] - [facility] 01/24/2024 09:28:13 10/09/19 24 Air & Speech Audio with Tymps (48242, 43413 & 86485) completed AMAN CLEMENTS, SIRIA [address], [address], [facility] - [facility] 10/09/2023 15:21:02 10/09/19 24 FFL_RE completed JESUS MANUEL EDWARDS MD [address], [address], [place] - [facility] 10/09/2023 14:57:24 Imaging Results Imaging Date Name Status LastModified by Organ [facility] Details LastModified Time 10/10/2023 audiogram completed [email or web address] Information n ot available 10/10/2023 14:07:58 08/07/2022 imaging/diagno stic result completed Information not available 11/12/2023 15:12:35 08/17/2022 imaging/diagno stic result completed Information not available 11/12/2023 15:12:36 08/17/2022 imaging/diagno stic result completed Information not available 11/12/2023 15:12:37 09/28/2020 imaging/diagno stic result completed Information not available 11/12/2023 15:12:45 10/29/2019 imaging/diagno stic result completed Information not available 11/12/2023 15:12:47 11/19/2018 imaging/diagno stic result completed Information not available 11/12/2023 15:12:51 03/24/2019 imaging/diagno stic result completed Information not available 11/12/2023 15:13:00 08/07/2022 audiogram completed Information not available 11/12/2023 15:13:31 12/05/2022 audiogram completed Information not available 11/12/2023 15:13:41 03/24/2019 audiogram completed Information not available 11/12/2023 15:13:48 01/24/2024 audiogram completed BARCODE Information no t available 01/24/2024 14:43:29 Procedure Notes None recorded. Medical Equipment None Reported. Allergies Allergen ID Allergen Name Allergen Category Reaction Reaction Severity Criticality Documentation Date Start Date Code Code System Note Provider Name and Address Organization Details Recorded Time [id number] metronida zole medicatio n other Not available Not available 08/06/2023 6922 RxNorm React ion: unkno wn, unspe cifie d;; Not Available [facility] 4 01:08:47 159406 lisinopri l medicatio n other Not available Not available 08/06/2023 01365 RxNorm React ion: unkno wn, unspe cifie d;; Not Available [facility] 4 01:08:49 806714 codeine sulfate medicatio n other Not available Not available 08/06/2023 47256 RxNorm React ion: unkno wn, unspe cifie d;; Not Available [facility] 4 01:08:51 Medications Name Sig Start Date Stop Date Status Note LastModified by Organization Details LastModified Time amoxicill in 500 mg capsule TAKE 4 CAPSULES BY MOUTH 1 PRIOR TO DENTAL APPOINTM ENT 01/23 completed Not Available Not Available Not Available prednison e 10 mg tablet 01/23 completed Medicati on ID: [id number] P rescribe d By Name: Jesus Manuel escamilla MD Brand Name: predniso ne Send Method: E-Prescr ibed Sub s Allowed: subs OK Speci al Instruct ion: Take 4 tabs daily for 3 days then 3 tabs daily for 3 days then 2 tabs daily for 3 days then 1 tab daily for 3 days then stop Med icationG enericNa me: predniso ne Not Available Not Available Not Available donepezil 5 mg tablet TAKE 1 TABLET BY MOUTH AT BEDTIME active Not Available Not Available No t Available valacyclo vir 1 gram tablet TAKE 1 TABLET ORALLY DAILY NEEDED FOR HERPES FOR 30 DAYS active Not Available Not Available No t Available amoxicill in 600 mg-potass ium clavulana te 42.9 mg/5 mL oral suspensio n TAKE 5 ML ORALLY EVERY 12 HOURS FOR 10 DAYS 01/23 completed Not Available Not Available Not Available meloxicam 15 mg tablet TAKE 1 TABLET ORALLY DAILY NEEDED FOR PAIN FOR 30 DAYS active Not Available Not Available No t Available phenazopy ridine 200 mg tablet TAKE 1 TABLET BY MOUTH 3 TIMES A DAY NEEDED FOR PAIN. 01/23 completed Not Available Not Available Not Available prednison e 20 mg tablet 05/07 completed Medicati on ID: [id number] Tika landry By Name: SIMONA Shook nd Name: predniso ne Send Method: E-Prescr ibed Sub s Allowed: subs OK Speci al Instruct ion: Take 3 tabs daily for 3 days then 2 tabs daily for 3 days then 1 tabs daily for 3 days then stop Med icationG enericNa me: predniso ne Not Available Not Available Not Available simvastat in 10 mg tablet 01/23 completed Medicati on ID: [id number] D uration Value: 30 Brand Name: simvasta tin Send Method: E-Prescr ibed Sub s Allowed: subs OK Medic ationGen ericName : simvasta tin Not Available Not Available Not Available amlodipin e 5 mg tablet 2016 active Medicati on ID: [id number] D uration Value: 30 Brand Name: amlodipi ne Send Method: E-Prescr ibed Sub s Allowed: subs OK Speci al Instruct ion: TAKE 1 TABLET BY MOUTH EVERY DAY Medi cationGe nericNam e: amlodipi ne Not Available Not Available Not Available sulfameth oxazole 800 mg-trimet hoprim 160 mg tablet TAKE 1 TABLET BY MOUTH TWICE A DAY FOR 5 DAYS . PLEASE STOP NITROFUR ANTOIN AND START THIS 01/23 completed Not Available Not Available Not Available ofloxacin 0.3 % ear drops INSTILL 4 DROPS TO LEFT EAR TWICE DAILY FOR 3 DAYS active Not Available Not Available No t Available triamcino lone acetonide 0.1 % dental paste 1 a small amount 2018 active Medicati on ID: [id number] D uration Value: 14 Prescri bed By Name: EDY Fang nd Name: triamcin olone acetonid e Send Method: E-Prescr ibed Sub s Allowed: subs OK Speci al Instruct ion: apply small amount to sore area of tongue three times daily until improved Medicat ionGener icName: triamcin olone acetonid e Not Available Not Available Not Available amoxicill in 250 mg/5 mL oral suspensio n TAKE 8 TEASPOON FULS (40ML) 1 HOUR PRIOR TO DENTAL APPOINTM ENT. DISCARD REMAINDE R 01/23 completed Not Available Not Available Not Available cephalexi n 500 mg capsule TAKE 1 CAPSULE BY MOUTH TWICE A DAY FOR 7 DAYS 01/23 completed Not Available Not Available Not Available nitrofura ntoin macrocrys jc 100 mg capsule TAKE 1 CAPSULE ORALLY EVERY 12 HOURS FOR 7 DAYS MUST ADMINIST ER WITH A MEAL/VIANCA D 01/23 completed Not Available Not Available Not Available valsartan 320 mg tablet 2016 active Medicati on ID: [id number] D uration Value: 90 Brand Name: valsarta n Send Method: E-Prescr ibed Sub s Allowed: subs OK Speci al Instruct ion: TAKE 1 TABLET BY MOUTH EVERY DAY Medi cationGe nericNam e: valsarta n Not Available Not Available Not Available sulfameth oxazole 200 mg-trimet hoprim 40 mg/5 mL oral suspensio n TAKE 20 ML BY MOUTH 2 TIMES A DAY FOR 5 DAYS 01/23 completed Not Available Not Available Not Available gabapenti n 300 mg capsule 2016 active Medicati on ID: [id number] D uration Value: 30 Brand Name: gabapent in Send Method: E-Prescr ibed Sub s Allowed: subs OK Speci al Instruct ion: TAKE ONE CAPSULE BY MOUTH 3 TIMES A DAY Medi cationGe nericNam e: gabapent in Not Available Not Available Not Available zolpidem 5 mg tablet 2017 active Medicati on ID: [id number] D uration Value: 15 Brand Name: zolpidem Send Method: E-Prescr ibed Sub s Allowed: subs OK Speci al Instruct ion: TAKE 1-2 TABLETS BY MOUTH AT BEDTIME NEEDED FOR SLEEP Me dication GenericN mal: zolpidem Not Available Not Available Not Available amoxicill in 875 mg-potass ium clavulana te 125 mg tablet TAKE 1 TABLET BY MOUTH TWICE A DAY FOR 10 DAYS 01/23 completed Not Available Not Available Not Available rosuvasta tin 5 mg tablet TAKE 1 TABLET BY MOUTH EVERY DAY AT BEDTIME active Not Available Not Available No t Available Coreg CR 20 mg capsule, extended release 2016 active Medicati on ID: [id number] D uration Value: 90 Brand Name: Coreg CR Send Method: E-Prescr ibed Sub s Allowed: subs OK Speci al Instruct ion: TAKE 1 CAPSULE BY MOUTH ONCE A DAY Medi cationGe nericNam e: Coreg CR Not Available Not Available Not Available Flonase Allergy Relief 50 mcg/actua tion nasal spray,neto pension 2 puff into both nostrils 2018 active Medicati on ID: [id number] D uration Value: 120 Prescri bed By Name: Jesus Manuel escamilla MD Brand Name: Flonase Allergy Relief S end Method: E-Prescr ibed Sub s Allowed: subs OK Medic ationGen ericName : Flonase Allergy Relief Not Available Not Available Not Available Vitals Date Recorded Body height Body mass index (BMI) Body weight Provider Name and Address Organization Details Last Updated DateTime 10/09/2023 175.26 cm 24.4 kg/m2 75089.74 g Cynthia Pink [facility] 10/09/2023 14:38:25 Date Recorded Body height Body mass index (BMI) Body weight Provider Name and Address Organization Details Last Updated DateTime 01/24/2024 175.26 cm 24.4 kg/m2 37898.74 g Gayatri Trevino [facility] 01/24/2024 08:42:37 Social History None recorded. Functional Status None recorded. Mental Status None recorded. Family History Nothing Reported. Medical History Condition Response Cancer Y Hypertension Y High Cholesterol Y Past Encounters Encounter ID Performer Location Encounter Start Date Encounter Closed Date Diagnosis/Indication Diagnosis SNOMED-CT Code Diagnosis ICD10 Code [id number] JESUS MANUEL EDWARDS MD [facility] [address] [place] [address] 10/09/2023 14:15:21 10/09/2023 15:54:54 Primary malignant neoplasm of unknown site 967219711 C80.1 Screening for malignant neoplasm of respiratory tract 475450342 Z12.2 Tinnitus of left ear 182 6465579 106 H93.12 [id number] SIRIA HAWKINS [facility] [address] [place] [address] 10/09/2023 15:18:57 10/10/2023 17:14:54 Sensorineural hearing loss of bilateral ears 315392014 H90.3 [id number] JESUS MANUEL EDWARDS MD [facility] of [address] [address] 01/24/2024 08:40:28 01/24/2024 10:09:48 Disorder of left Eustachian tube 1479897580 417853 H69.92 History of malignant neoplasm of oral cavity 159787636 Z85.819 Health Concerns Section Related Observation LastModified by Organization Detai ls LastModified Time None Recorded Concern Status LastModified by Organization Details LastModified Time None Recorded Advance Directives Directive None Recorded Payers Encounter Date Sequence Insurance Name Policy Number Policy Gutierrez Covered Member ID Gutierrez Member ID Guarantor Name 10/09/2023 1 [place]: [employer] Adair K Nate [id number] Adair K Nate 10/09/2023 2 [facility] 1 (MEDICARE SUPPLEMENT) [id number] Adair K Nate [id number] Adair K Nate 10/09/2023 1 [place] Adair K Nate [id number] Adair K Nate 10/09/2023 2 [facility] 1 (MEDICARE SUPPLEMENT) [id number] 1 Adair K Nate [id number] Adair K Nate 01/24/2024 1 [place] [employer] Adair K Nate [id number] Adair K Nate 01/24/2024 2 [place] [id number] (MEDICARE SUPPLEMENT) [id number] 1 Adair Sullivan [id number] Adair Sullivan Notes Date Note Type Note Provider Name and Address Organization Details Recorded Time 10/09/2023 text/html cancer surveillance Mr. Sullivan is a 68 year old male who presents for routine cancer surveillance. 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 Chemoradiation was completed on 12/19/16. PET scan obtained in April 2017 revealed no evidence of recurrent disease. His left ear feels blocked. He has left tinnitus. He was put on prednisone 2 weeks ago for a few days and this seemed to help. JESUS MANUEL EDWARDS MD [address] [place] [address],[address], [address], [place] - [facility] 10/09/2023 15:55:45 01/24/2024 text/html 68 year old male presents to the office reporting that the left ear has felt blocked for a couple of months. It is even worse than when he was in during September for his routine cancer screening. He has tinnitus in the left ear and his left-sided hearing is worse than the right. He additionally reports constant rhinorrhea and has been taking Zyrtec nightly. His helps provide some history as they report that the patient has some memory issues. JESUS MANUEL EDWARDS MD [address] [place] [address],[address], [address], [facility] 01/27/2024 12:23:23
--- OUTSIDE RECORDS SUMMARY | 2024-03-04 23:16 | XMS_ITS | Patient Health Record ---
Author Organization Carson Gilmore MD Address [address] [place], [place] [id number] Care Team Providers Care School Business Manager Name Role Phone Carson Gilmore Primary Care Provider RESULTS Component Value Reference Range Notes Urine Culture Reviewed date:01/24/2024 11:57:16 AM Interpretation: Performing Lab:[facility], [address] [place] [id number] Notes/Report: O:CITKOS Citrobacter koseri Urine Culture Quant Urine Culture > 100,000 cfu/mL Cefazolin 4 Cefepime <=0.12 Ceftriaxone <=0.25 Ciprofloxacin <=0.06 Gentamicin <=1 Nitrofurantoin 32 Trimethoprim/Sulfamethoxazole <=20 UA ClnCatch+Micro w/rflx Cul t Reviewed date:01/21/2024 04:21:26 PM Interpretation: Performing Lab:[address] [id number] Notes/Report: Urine, Clean Catch Color Urine Yellow Appearance Urine Turbid PH 6.0 5.0-9.0 Glucose Urine UA Negative Negative mg/dL Urine Blood Moderate (2+) Negative Specific [place] - Urine 1.025 1.005-1.025 Urine Protein 30 (1+) Neg-Trace mg/dL Urine Ketones Trace Negative mg/dL Nitrite Urine Positive Negative Leukocyte Esterase Urine Moderate (2+) Negative RBC Urine 3-5 0-2 /HPF WBC Urine >50 0-5 /HPF Squamous Epithelial Cell Urine 3-5 0-2 /HPF Bacteria Urine 4+ None Seen Hyaline Casts Urine 0-2 0-2 /LPF REASON FOR REFERRAL No Information MEDICATIONS Medication SIG (Take, Route, Frequency, Duration) Notes Start Date End Date Status predniSONE 10 MG 1 tablet with food o r milk Orally 4 tabs for 3 days,3tabs for 3 days, 2 tabs for 3 days, and 1 tab for 3 days for 14 days 06/28/2022 Active Fluticasone Propionate 50 MCG/ACT 1 spray in each nostril Nasally Twice a day for 30 day(s) 06/28/2022 Active Cephalexin 500 MG 1 capsule Orally twi ce a day for 7 days 02/22/2023 Active PROBLEMS Problem Type ICD Code Onset Dates Problem Status W/U Status Risk SNOMED Code Notes Problem 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, 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 [id number] Encounters Encounter Location Date Provider Diagnosis Carson Gilmore MD [address] [place] [address] [address] [place], [place] [id number] 01/21/2024 Carson Gilmore UTI (urinary tract infection) N39.0 ASSESSMENTS Encounter Date Diagnosis Assessment Notes Treatment Notes Treatment Clinical Notes 01/21/2024 UTI (urinary tract infection) (ICD-10 - N39.0) PLAN OF TREATMENT No Information Insurance Providers Payer Name Payer Address Payer Phone Subscriber Number Group Number Insured Name Patient Relationship to Insured Coverage Start Date Coverage End Date MEDICARE [employer] [address] [place] [address] [id number] MARIA ALEJANDRA VARGAS Self - patient is the insured [address] [place] [phone] [id number] MARIA ALEJANDRA VARGAS Self - patient is the insured
--- OUTSIDE RECORDS SUMMARY | 2024-03-04 23:16 | XMS_ITS | Clinical Summary ---
Author Organization Unknown Care Team Providers Care Power Builder Developer Name Role Phone GREGORY VALENZUELA, SANDHYA Unavailable Unavailab rudolph FINNEGAN RN, CHULA Unavailable Unavailable Payers Payer Name Policy Type Policy Number Effective Date Expira tion Date MEDICARE.NGS.PDGM [id number] Problems Condition Name Condition Details Condition Category Status Onset Date Resolution Date Last Treatment Date Treating Clinician Comments ENCOUNTER FOR CHANGE OR REMOVAL OF NONSURG WOUND DRESSING Active 2020-03 00:00: 00 BENIGN PROSTATIC HYPERPLASIA WITH LOWER URINARY TRACT SYMP Active 12-01 00:00: 00 STRESS INCONTINENCE (FEMALE) (MALE) Active 05-11 00:00: 00 BLADDER-NECK OBSTRUCTION Active 05-11 00:00: 00 INFLAMMATORY DISORDERS OF SCROTUM Active 06-29 00:00: 00 ESSENTIAL (PRIMARY) HYPERTENSION Active 03-25 00:00: 00 MALIGNANT NEOPLASM OF PROSTATE Active 2013-03 00:00: 00 POLYNEUROPAT HY, UNSPECIFIED Active 03-25 00:00: 00 UNSPECIFIED ASTHMA, UNCOMPLICATE D Active 2013-03 00:00: 00 ANXIETY DISORDER, UNSPECIFIED Active 03-25 00:00: 00 DVRTCLOS OF LG INT W/O PERFORATION OR ABSCESS W/O BLEEDING Active 03-25 00:00: 00 (IDIOPATHIC) NORMAL PRESSURE HYDROCEPHALU S Active 03-25 00:00: 00 NONRHEUMATIC MITRAL (VALVE) PROLAPSE Active 03-25 00:00: 00 HYPERLIPIDEM IA, UNSPECIFIED Active 03-25 00:00: 00 HISTORY OF FALLING Active 07-04 00:00: 00 ACQUIRED ABSENCE OF OTHER GENITAL ORGAN(S) Active 03-25 00:00: 00 Allergies, Adverse Reactions, Alerts Allergy Name Allergy Type Status Severity Reaction(s) Onset Date Inactive Date Treating Clinician Comments LISINOPRIL Propensity to adverse reactions Active 07-05 08:46: 35 METRONIDAZOL E Propensity to adverse reactions Active 07-05 08:46: 49 Medications Ordered Medication Name Filled Medication Name Start Date Stop Date Current Medication? Ordering Clinician Indication Dosage Frequency Signature (SIG) Comments Components amoxicillin 600 mg-potassiu m clavulanate 42.9 mg/5 mL oral suspension 06-27 00:00: 00 07-04 00:00 :00 No [id number] Per instruc tions Per instructio ns (route: oral) Med Classific ation: Anti-Infe ctive Agents sulfamethox azole 200 mg-trimetho prim 40 mg/5 mL oral suspension 07-01 00:00: 00 08-01 23:59 :00 No [id number] 20 mL 2 TIMES DAILY 20 mL 2 TIMES DAILY (route: oral) Med Classific ation: Anti-Infe ctive Agents ibuprofen 600 mg tablet 07-01 00:00: 00 Yes [id number] 1 tablet EVERY 6 HOURS 1 tablet EVERY 6 HOURS (route: oral) Med Classific ation: Analgesic , Anti-infl ammatory or Antipyret ic trazodone 50 mg tablet 06-18 00:00: 00 07-04 00:00 :00 No [id number] FOR INSOMNIA Per instruc tions AT BEDTIME NEEDED Per instructio ns AT BEDTIME NEEDED (route: oral) Med Classific ation: Central Nervous System Agents sulfamethox azole 800 mg-trimetho prim 160 mg tablet 06-13 00:00: 00 07-04 00:00 :00 No [id number] Per instruc tions EVERY 12 HOURS FOR 5 DAYS Per instructio ns EVERY 12 HOURS FOR 5 DAYS (route: oral) Med Classific ation: Anti-Infe ctive Agents phenazopyri dine 100 mg tablet 06-27 00:00: 00 07-04 00:00 :00 No [id number] Per instruc tions Per instructio ns (route: oral) Med Classific ation: Genitouri nary Therapy calcium carbonate 500 mg (1,250 mg)-vitamin D3 200 unit tablet 07-04 00:00: 00 Yes [id number] 1 tablet 2 TIMES DAILY 1 tablet 2 TIMES DAILY (route: oral) Med Classific ation: Electroly te Balance-N utritiona l Products cyanocobala min (vit B-12) 500 mcg tablet - 00:00: 00 Yes [id number] 1 tablet DAILY 1 tablet DAILY (route: oral) Med Classific ation: Electroly te Balance-N utritiona l Products famciclovir 500 mg tablet 07-04 00:00: 00 Yes [id number] 1 tablet DAILY 1 tablet DAILY (route: oral) Med Classific ation: Anti-Infe ctive Agents Tylenol Extra Strength 500 mg tablet 07-04 00:00: 00 Yes [id number] 2 tablet 3 TIMES DAILY 2 tablet 3 TIMES DAILY (route: oral) Med Classific ation: Analgesic , Anti-infl ammatory or Antipyret ic Vitamin C 1,000 mg tablet 07-04 00:00: 00 Yes [id number] 1 tablet 2 TIMES DAILY 1 tablet 2 TIMES DAILY (route: oral) Med Classific ation: Electroly te Balance-N [employer] Zofran 4 mg tablet 07-04 00:00: 00 Yes [id number] 1 tablet EVERY 4 HOURS 1 tablet EVERY 4 HOURS (route: oral) Med Classific ation: Gastroint estinal Therapy Agents phenazopyri dine 100 mg tablet 07-05 00:00: 00 Yes [id number] BLADDER SPASMS 1 tablet 3 TIMES DAILY 1 tablet 3 TIMES DAILY (route: oral) Med Classific ation: Genitouri nary Therapy trospium ER 60 mg capsule,ext ended release 24 hr 2020-03 0-04 00:00: 00 Yes [id number] bladder spasm 1 capsule DAILY 1 capsule DAILY (route: oral) Med Classific ation: Genitouri nary Therapy trospium ER 60 mg capsule,ext ended release 24 hr 2020-03 0-09 00:00: 00 Yes [id number] BLADDER SPASMS 1 capsule DAILY 1 capsule DAILY (route: oral) Med Classific ation: Genitouri nary Therapy amoxicillin 250 mg/5 mL oral suspension 2020-03 00:00: 00 Yes [id number] DENTAL WORK 10 mL 3 TIMES DAILY 10 mL 3 TIMES DAILY (route: oral) Med Classific ation: Anti-Infe ctive Agents Vital Signs Vital Name Observation Time Observation Value Commen ts Temperature 2021-03-29 16:18:04.000 97.9 [degF] Temperature 2021-03-16 10:45:00.000 97.4 [degF] Temperature 2021-03-07 13:15:00.000 97.2 [degF] Pulse 2021-03-29 16:18:12.000 80 /min Pulse 2021-03-16 10:45:00.000 73 /min Pulse 2021-03-07 13:15:00.000 68 /min O2 Saturation (%) 2021-03-29 16:19:09.000 97 % O2 Saturation (%) 2021-03-16 10:45:00.000 98 % O2 Saturation (%) 2021-03-07 13:16:00.000 97 % Respirations 2021-03-29 16:18:26.000 18 /min Respirations 2021-03-16 10:45:00.000 18 /min Respirations 2021-03-07 13:15:00.000 18 /min Systolic Blood Pressure 2021-03-29 16:18:50.000 150 mm [Hg] Systolic Blood Pressure 2021-03-16 10:45:00.000 139 mm [Hg] Systolic Blood Pressure 2021-03-07 13:15:00.000 128 mm [Hg] Diastolic Blood Pressure 2021-03-29 16:18:50.000 70 mm [Hg] Diastolic Blood Pressure 2021-03-16 10:45:00.000 76 mm [Hg] Diastolic Blood Pressure 2021-03-07 13:15:00.000 70 mm [Hg] Plan of Treatment Planned Activity Planned Date Details Comments Future Scheduled Test SKILLED NU RSE TO ASSESS, EVALUATE, AND DEVELOP AN INDIVIDUALIZED PLAN OF CARE. AGENCY MAY ACCEPT ORDERS FROM CONSULTING PHYSICIANS DR SANDHYA JENKINS, DR LEANNE RUBALCAVA. SN TO OBSERVE/ASSESS RISK FOR FALLS AND INSTRUCT IN FALL PREVENTION, HOME SAFETY, MEDICATION MANAGEMENT, INFECTION PREVENTION, AND NUTRITION MANAGEMENT. SN MAY PERFORM O2 SATURATION LEVEL ON ADMISSION AND PRN FOR SOB TO ASSESS PATIENT, WITH NOTIFICATION TO THE PHYSICIAN IF SATURATION IS 90% IN THE ABSENCE OF MORE SPECIFIC PARAMETERS FROM THE PHYSICIAN. AGENCY MAY PERFORM A RESUMPTION OF CARE VISIT FOLLOWING ANY HOSPITAL ADMISSION. SKILLED NURSE TO ASSESS/EVALUATE CO-MORBID CONDITIONS AND ANY NEW CONDITIONS THAT PRESENT THEMSELVES DURING THIS EPISODE TO IDENTIFY CHANGES AND INTERVENE TO MINIMIZE COMPLICATIONS. [code = SKILLED NURSE TO ASSESS, EVALUATE, AND DEVELOP AN INDIVIDUALIZED PLAN OF CARE. AGENCY MAY ACCEPT ORDERS FROM CONSULTING PHYSICIANS DR SANDHYA JENKINS, DR LEANNE RUBALCAVA. SN TO OBSERVE/ASSESS RISK FOR FALLS AND INSTRUCT IN FALL PREVENTION, HOME SAFETY, MEDICATION MANAGEMENT, INFECTION PREVENTION, AND NUTRITION MANAGEMENT. SN MAY PERFORM O2 SATURATION LEVEL ON ADMISSION AND PRN FOR SOB TO ASSESS PATIENT, WITH NOTIFICATION TO THE PHYSICIAN IF SATURATION IS 90% IN THE ABSENCE OF MORE SPECIFIC PARAMETERS FROM THE PHYSICIAN. AGENCY MAY PERFORM A RESUMPTION OF CARE VISIT FOLLOWING ANY HOSPITAL ADMISSION. SKILLED NURSE TO ASSESS/EVALUATE CO-MORBID CONDITIONS AND ANY NEW CONDITIONS THAT PRESENT THEMSELVES DURING THIS EPISODE TO IDENTIFY CHANGES AND INTERVENE TO MINIMIZE COMPLICATIONS.] Future Scheduled Test MEDICATION MANAGEMENT; SKILLED NURSE TO REVIEW MEDICATIONS FOR INTERACTIONS, EFFECTIVENESS OF DRUG THERAPY, AND SIGNS/SYMPTOMS OF ADVERSE REACTIONS. MAY INSTRUCT AND REINFORCE MEDICATION TEACHING RELATED TO THE USE OF MEDICATIONS, DOSAGE, FREQUENCY, PURPOSE, SIDE EFFECTS, AND TO REPORT COMPLICATIONS. [code = MEDICATION MANAGEMENT; SKILLED NURSE TO REVIEW MEDICATIONS FOR INTERACTIONS, EFFECTIVENESS OF DRUG THERAPY, AND SIGNS/SYMPTOMS OF ADVERSE REACTIONS. MAY INSTRUCT AND REINFORCE MEDICATION TEACHING RELATED TO THE USE OF MEDICATIONS, DOSAGE, FREQUENCY, PURPOSE, SIDE EFFECTS, AND TO REPORT COMPLICATIONS.] Future Scheduled Test RISK FOR H OSPITALIZATION; SKILLED NURSE TO INSTRUCT PATIENT/CAREGIVER ON RISK FOR HOSPITALIZATION, TEACH SIGNS AND SYMPTOMS THAT PUT PATIENT AT RISK, WHEN TO NOTIFY NURSE OF COMPLICATIONS/DECLINE, AND WHEN TO CALL 911. SKILLED NURSE TO INSTRUCT PATIENT/CAREGIVER ON: SIGNS AND SYMPTOMS TO BE ON ALERT FOR EARLY INTERVENTION, PRIOR TO NEEDING EMERGENCY SERVICES CALL [facility] NURSE TO KEEP TAX SPECIALIST SYMPTOM REPORT FOR VISIBLE REFERENCE NOTIFY SKILLED NURSE/PHYSICIAN FOR DECLINE IN STATS WHEN AND HOW TO CALL HOME HEALTH AGENCY FACILITATE PHYSICIAN FOLLOW UP APPOINTMENT IDENTIFY SOCIOECONOMIC CONCERNS AND MAKE APPROPRIATE REFERRAL NEEDED [code = RISK FOR HOSPITALIZATION; SKILLED NURSE TO INSTRUCT PATIENT/CAREGIVER ON RISK FOR HOSPITALIZATION, TEACH SIGNS AND SYMPTOMS THAT PUT PATIENT AT RISK, WHEN TO NOTIFY NURSE OF COMPLICATIONS/DECLINE, AND WHEN TO CALL 911. SKILLED NURSE TO INSTRUCT PATIENT/CAREGIVER ON: SIGNS AND SYMPTOMS TO BE ON ALERT FOR EARLY INTERVENTION, PRIOR TO NEEDING EMERGENCY SERVICES CALL [facility] NURSE TO KEEP TAX SPECIALIST SYMPTOM REPORT FOR VISIBLE REFERENCE NOTIFY SKILLED NURSE/PHYSICIAN FOR DECLINE IN STATS WHEN AND HOW TO CALL HOME HEALTH AGENCY FACILITATE PHYSICIAN FOLLOW UP APPOINTMENT IDENTIFY SOCIOECONOMIC CONCERNS AND MAKE APPROPRIATE REFERRAL NEEDED] Future Scheduled Test PAIN MANAG EMENT; SKILLED NURSE TO OBSERVE, ASSESS, AND PROVIDE EDUCATION ON PAIN MANAGEMENT TECHNIQUES. [code = PAIN MANAGEMENT; SKILLED NURSE TO OBSERVE, ASSESS, AND PROVIDE EDUCATION ON PAIN MANAGEMENT TECHNIQUES.] Future Scheduled Test GENITOURIN BRETT MANAGEMENT; SKILLED NURSE TO ASSESS AND TEACH RELATED TO ALTERED GENITOURINARY STATUS TO MINIMIZE COMPLICATIONS AND REDUCE HOSPITALIZATION. [code = GENITOURINARY MANAGEMENT; SKILLED NURSE TO ASSESS AND TEACH RELATED TO ALTERED GENITOURINARY STATUS TO MINIMIZE COMPLICATIONS AND REDUCE HOSPITALIZATION.] Future Scheduled Test URINARY IN CONTINENCE MANAGEMENT; SKILLED NURSE TO ASSESS AND TEACH MANAGEMENT OF URINARY INCONTINENCE. TEACH/INSTRUCT ON PREVENTING INFECTION AND SKIN BREAKDOWN. SKILLED NURSE MAY INSTRUCT IN BLADDER TRAINING PROGRAM INDICATED. [code = URINARY INCONTINENCE MANAGEMENT; SKILLED NURSE TO ASSESS AND TEACH MANAGEMENT OF URINARY INCONTINENCE. TEACH/INSTRUCT ON PREVENTING INFECTION AND SKIN BREAKDOWN. SKILLED NURSE MAY INSTRUCT IN BLADDER TRAINING PROGRAM INDICATED.] Future Scheduled Test FALL REDUC TION MANAGEMENT; NURSING TO PROVIDE SKILLED ASSESSMENT, EDUCATION, AND INTERVENTION TO IDENTIFY FALL RISK FACTORS SUCH MEDICATIONS THAT MAY CAUSE DIZZINESS, CHRONIC DISEASES, PSYCHOLOGICAL FACTORS, AND EMPOWER/EDUCATE PATIENT/CAREGIVER TO MINIMIZE FALL RISK. [code = FALL REDUCTION MANAGEMENT; NURSING TO PROVIDE SKILLED ASSESSMENT, EDUCATION, AND INTERVENTION TO IDENTIFY FALL RISK FACTORS SUCH MEDICATIONS THAT MAY CAUSE DIZZINESS, CHRONIC DISEASES, PSYCHOLOGICAL FACTORS, AND EMPOWER/EDUCATE PATIENT/CAREGIVER TO MINIMIZE FALL RISK.] Future Scheduled Test PRN VISITS ; PATIENT REQUIRES 2 PRN USP VISITS FOR COMPLICATIONS RELATED TO GENITOURINARY MANAGEMENT TEACHING [code = PRN VISITS; PATIENT REQUIRES 2 PRN USP VISITS FOR COMPLICATIONS RELATED TO GENITOURINARY MANAGEMENT TEACHING] Future Scheduled Test 60 DAY PHY SICIAN SUMMARY; JUSTIFY NEED FOR CONTINUED CARE (RECERT) DUE TO NEW GOALS AND/OR PROBLEMS: EXPLAIN/LIST OBSTACLES AND/OR CHALLENGES FOR EXAMPLE: GENITOURINARY ASSESSMENT TEACHING [code = 60 DAY PHYSICIAN SUMMARY; JUSTIFY NEED FOR CONTINUED CARE (RECERT) DUE TO NEW GOALS AND/OR PROBLEMS: EXPLAIN/LIST OBSTACLES AND/OR CHALLENGES FOR EXAMPLE: GENITOURINARY ASSESSMENT TEACHING] Goal 2020-08-30 Patient Goal - GET BETTER Goal 2020-10-27 Patient Goal - GET BETTER Goal 2020-12-26 Patient Goal - GET BETTER Goal 2021-02-27 Patient Goal - GET BETTER Goal 2021-03-29 Patient Goal - GET BETTER Goal Provider Goal - A PLAN OF CARE WILL BE ESTABLISHED THAT MEETS THE PATIENTS NEEDS. PATIENT WILL DEMONSTRATE OXYGEN SATURATION WITHIN NORMAL LIMITS OR PATIENTS OPTIMAL LEVEL ESTABLISHED BY THE PHYSICIAN THROUGHOUT CARE. CHANGES TO CO-MORBID CONDITIONS AND ANY NEW CONDITIONS WILL BE IDENTIFIED AND REPORTED TO THE PHYSICIAN. Goal Provider Goal - PATIENT/CAREGIVER TO VERBALIZE, AND CONSISTENTLY DEMONSTRATE EFFECTIVE, SAFE MANAGEMENT OF MEDICATION INCLUDING KNOWLEDGE OF EFFECTIVENESS, POTENTIAL SIDE EFFECTS AND DRUG REACTIONS AND WHEN TO CONTACT THE APPROPRIATE CARE PROVIDER. PATIENT/CAREGIVER WILL BE ABLE TO VERBALIZE UNDERSTANDING OF MEDICATION REGIMEN AND ACCURATELY TAKE MEDICATIONS PRESCRIBED WITHOUT ADVERSE EFFECTS BY 04/29/21 Goal Provider Goal - PATIENT/CAREGIVER WILL VERBALIZE UNDERSTANDING OF SIGNS AND SYMPTOMS THAT PUT THE PATIENT AT RISK FOR HOSPITALIZATION, WHEN TO NOTIFY SN OF COMPLICATIONS/DECLINE AND WHEN TO CALL 911. Goal Provider Goal - PATIENT / CAREGIVER WILL VERBALIZE / DEMONSTRATE UNDERSTANDING OF PAIN CONTROL MEASURES BY 04/29/21 Goal Provider Goal - PATIENT / CAREGIVER WILL VERBALIZE/DEMONSTRATE UNDERSTANDING OF MEASURES TO MANAGE ALTERED GENITOURINARY STATUS BY END OF EPISODE. Goal Provider Goal - PATIENT/CAREGIVER WILL VERBALIZE/DEMONSTRATE UNDERSTANDING OF CARE AND MANAGEMENT OF URINARY INCONTINENCE BY 04/29/21 . Goal Provider Goal - PATIENT/CAREGIVER ABLE TO IDENTIFY FALL RISK FACTORS AND IMPLEMENT STRATEGIES TO MINIMIZE FALL RISK. PATIENT/CAREGIVER WILL VERBALIZE/DEMONSTRATE AN ABILITY TO ADHERE TO FALL REDUCTION SELF MANAGEMENT AND LIFE-STYLE CHANGES AT DISCHARGE. PERSONAL GOAL(S) STATED BY PATIENT/CAREGIVER WILL BE MET BY 04/29/21. Goal Provider Goal - Goal Provider Goal - Reason for Visit INDEPENDENT IN THE COMMUNITY Encounters Start Date/Time End Date/Time Encounter Type Admission Type Attending [facility] Care Facility Care Department Encounter ID Discharge Date Discharge Status Discharge Condition Discharge Reason Percent Goals Met 2020-07-04 00:00:00 2021-03-29 00:00:00 Outpatient RECERTIFIC ATCHULA MCMILLAN [facility] [id number] 2021-03-29 00:00:00 DISCHARGE TO HOME OR SELF CARE INDEPENDEN T IN THE COMMUNITY HH OR [facility]- GOALS MET 100.00
--- OUTSIDE RECORDS SUMMARY | 2024-03-04 23:16 | XMS_ITS | Continuity of Care Document ---
Author Organization [place] - [facility], [facility] Address [address] [facility] [place] [address] Care Team Providers Care Laborer Livestock Name Role Phone ELIZABETHLEANNE HENDRICKS Referring Provider [phone] Assessment Encounter Date Assessment Date Assessment LastModified [...] were discussed. We discussed the risk of jail perforation following tube extrusion, with possible need [...] Details Appointments Establish ed 30 2024 09:00A M JESUS MANUEL Shaffer MD Not available Not available Not available Lab None recorded. Referral None recorded. Procedures None recorded. Surgeries None recorded. Imaging None recorded. Medication Orders ofloxacin 0.3 % ear drops 2023 024 [place] [id number], [address] [place], [address], 01/24/2024 10:10:49 Patient TargetsNo targets recorded. Patient InstructionsNo instructions recorded. Reason for Referral None Reported. Results Created Date Observation Date Name Description Value Unit Range Abnormal Flag Note LastModifiedBy Organization Detail LastModifiedTime 01/24/20 24 audio gram No observ ation record ed. BARCODE Not Available 2023 14:43:29 Result Notes None recorded. Problems Name Problem SNOMED Code Status Onset Date Resolution Date Notes Provider Name and Address Organization Details Recorded Time Taste sense altered 443995002 Active 2018 [employer] a; Note: Date Diagnosed : 05/07/2018 3:32 PM (R43.2) Not Available [facility] 4 02:40:44 Neck pain 23745593 Active 2021 Cervicalg ia; Note: Date Diagnosed : 10/03/2021 11:24 AM (M54.2) Not Available [facility] 4 02:40:47 History of malignant neoplasm of oral cavity 930661676 Active 2017 Personal history of malignant neoplasm of other sites of lip, oral cavity, and pharynx; Note: Date Diagnosed : 8 2:48 PM (Z85.818) Not Available [facility] 4 02:40:39 General unsteadin ess 895344537 Active 2018 Unsteadin ess on feet; Note: Date Diagnosed : 11/18/2018 11:18 AM (R26.81) Not Available [facility] 4 02:40:42 Disorder of smell 545443094 Active 2018 Other disturban irene of smell and taste; Note: Date Diagnosed : 11/18/2018 11:12 AM (R43.8) Not Available [facility] 4 02:40:48 Disorder of taste 757906495 Active 2018 Other disturban irene of smell and taste; Note: Date Diagnosed : 11/18/2018 11:12 AM (R43.8) Not Available [facility] 4 02:40:48 Impacted cerumen in left ear 30106231702 25897 Active 2016 Impacted cerumen, left ear; Note: Date Diagnosed : 08/15/2016 9:37 AM (H61.22) Not Available [facility] 4 02:40:46 Xerostomi a 26625866 Active 2018 Dry mouth, unspecifi ed; Note: Date Diagnosed : 05/07/2018 3:32 PM (R68.2) Not Available [facility] 4 02:40:50 Dizziness and giddiness 052526280 Active 2018 Dizziness and giddiness ; Note: Date Diagnosed : 9 11:50 AM (R42) Not Available [facility] 4 02:40:45 Nasal congestio n 52046482 Active 2018 Nasal congestio n; Note: Date Diagnosed : 05/07/2018 3:32 PM (R09.81) Not Available [facility] 4 02:40:44 Follow-up visit Active 2019 Encounter for follow-up examinati on after completed treatment for malignant neoplasm; Note: Date Diagnosed : 09/09/2019 2:33 PM (Z08) Medical surveilla nce following completed treatment ; Note: Date Diagnosed : 8 11:54 AM (Z09) ; Start Date : 8 Not Available [facility] 4 02:40:46 Mass of neck 608099864 Active 2016 Localized swelling, mass and lump, neck; Note: Date Diagnosed : 08/15/2016 9:37 AM (R22.1) Not Available [facility] 4 02:40:49 Neck swelling 876608248 Active 2016 Localized swelling, mass and lump, neck; Note: Date Diagnosed : 08/15/2016 9:37 AM (R22.1) Not Available [facility] 4 02:40:50 Sensorine ural hearing loss of bilateral ears 526152632 Active 2018 Sensorine ural hearing loss, bilateral ; Note: Date Diagnosed : 9 11:12 AM (H90.3) Not Available [facility] 4 02:40:42 Dysphagia 91831490 Active 2018 Dysphagia , unspecifi ed; Note: Date Diagnosed : 9 11:55 AM (R13.10) Not Available [facility] 4 02:40:49 Recurrent aphthous stomatiti s 353471643 Active 2018 Aphthous stomatiti s (major) (minor); Note: Date Diagnosed : 08/12/2018 11:08 AM (K12.0) Not Available [facility] 4 02:40:48 Dysphonia 03538701 Active 2018 Hoarsenes s; Note: Date Diagnosed : 9 11:58 AM (R49.0) Not Available [facility] 4 02:40:44 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 12450115 Active 2016 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, face and neck; Note: Date Diagnosed : 08/31/2016 2:41 PM (C77.0) Not Available [facility] 4 02:40:38 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 50176196 Active 2016 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, face and neck; Note: Date Diagnosed : 08/31/2016 2:41 PM (C77.0) Not Available [facility] 4 02:40:38 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 38863307 Active 2016 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, face and neck; Note: Date Diagnosed : 08/31/2016 2:41 PM (C77.0) Not Available [facility] 4 02:40:38 Impacted cerumen of bilateral ears 70818491687 92298 Active 2017 Impacted cerumen, bilateral ; Note: Date Diagnosed : 06/26/2017 11:13 AM (H61.23) Not Available [facility] 4 02:40:39 Chronic pansinusi tis 02415671 Active 2022 Chronic pansinusi tis; Note: Date Diagnosed : 08/23/2022 5:22 PM (J32.4) Not Available [facility] 4 02:40:45 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 - [facility] 4 14:44:49 Tinnitus of left ear 11048417292 06 Active 2023 JESUS MANUEL EDWARDS MD [address] [place] [address],[place] [address], [place], [address] , [facility] - [facility] [place] 4 14:47:04 Disorder of left Eustachia n tube 45262356481 32056 Active 2023 Lydia MCCURDY [address] [place] [address],[place] [address], [place], [address] , [facility] - [facility] [place] 4 09:28:47 Problem Notes None recorded. Procedures Surgical History Date Name Laterality Status Provider Name and Address Organization Details Recorded Time 01/24/20 24 Myringotomy w/Placement of Tube left completed IVETH LARSON PA-C [address] [facility],[place] [address], [place], [address], [facility] - [facility] 01/24/2024 13:01:59 01/24/20 24 FOL_DP completed IVETH LARSON PA-C [address] [facility],[place] [address], [place], [address], [facility] 01/24/2024 13:01:41 01/24/20 24 Tympanometry (18513) completed HARSHA BIGGS, AuD [address] [facility],[place] [address], [place], [address], [facility] 01/24/2024 09:28:13 10/09/19 24 Air & Speech Audio with Tymps (96357, 24030 & 55936) completed AMAN CLEMENTS, AUD [address] [facility],[place] [address], [place], [address], [facility] 10/09/2023 15:21:02 10/09/19 24 FFL_RE completed JESUS MANUEL EDWARDS MD [address] [facility],[address], [address], [facility] 10/09/2023 14:57:24 Imaging Results None recorded. Procedure Notes None recorded. Medical Equipment None Reported. Allergies Allergen ID Allergen Name Allergen Category Reaction Reaction Severity Criticality Documentation Date Start Date Code Code System Note Provider Name and Address Organization Details Recorded Time 074795 metronida zole medicatio n other Not available Not available 08/06/2023 6922 RxNorm React ion: unkno wn, unspe cifie d;; Not Available [facility] 4 01:08:47 895865 lisinopri l medicatio n other Not available Not available 08/06/2023 92071 RxNorm React ion: unkno wn, unspe cifie d;; Not Available [facility] 4 01:08:49 164102 codeine sulfate medicatio n other Not available Not available 08/06/2023 67666 RxNorm React ion: unkno wn, unspe cifie d;; Not Available [facility] 4 01:08:51 Medications Name Sig Start Date Stop Date Status Note LastModified by Organization Details LastModified Time amoxicill in 500 mg capsule TAKE 4 CAPSULES BY MOUTH 1 PRIOR TO DENTAL APPOINTM ENT 11/01 /2024 completed Not Available Not Available Not Available prednison e 10 mg tablet 01/23 completed Medicati on ID: [id number] P rescribe d By Name: Jesus Manuel [...] mg tablet 05/07 completed Medicati on ID: [id number] P rescribe d By Name: Bette Oconnorbrenden, SEED EXPERT-C [place] nd Name: predniso ne Send Method: E-Prescr ibed Sub s Allowed: subs OK Speci al Instruct ion: Take 3 tabs daily for 3 days then 2 tabs daily for 3 days then 1 tabs daily for 3 days then stop Med icationG enericNa me: predniso ne Not Available Not Available Not Available simvastat in 10 mg tablet 01/23 completed Medicati on ID: [id number] D uration Value: 30 Brand Name: simvasta tin Send Method: E-Prescr ibed Sub s Allowed: subs OK Medic ationGen ericName : simvasta tin Not Available Not Available Not Available amlodipin e 5 mg tablet 2016 active Medicati on ID: [id number] D uration Value: 30 Brand Name: amlodipi ne Send Method: E-Prescr ibed Sub s Allowed: subs OK Speci al Instruct ion: TAKE 1 TABLET BY MOUTH EVERY DAY Medi cationGe nericNam e: amlcarla ne Not Available Not Available Not Available [...] small amount 2018 active Medicati on ID: [id number] D uration Value: 14 Prescri bed By [...] mg tablet 2016 active Medicati on ID: [id number] D uration Value: 90 Brand Name: valsarta [...] mg capsule 2016 active Medicati on ID: 762610 D uration Value: 30 Brand Name: gabapent in Send Method: E-Prescr ibed Sub s Allowed: subs OK Speci al Instruct ion: TAKE ONE CAPSULE BY MOUTH 3 TIMES A DAY Medi cationGe nericNam e: gabapent in Not Available Not Available Not Available zolpidem 5 mg tablet 2017 active Medicati on ID: [id number] D uration Value: 15 Brand Name: zolpidem [...] extended release 2016 active Medicati on ID: [id number] D uration Value: 90 Brand Name: Coreg CR Send Method: E-Prescr ibed Sub s Allowed: subs OK Speci al Instruct ion: TAKE 1 CAPSULE BY MOUTH ONCE A DAY Medi cationGe nericNam e: Coreg CR Not Available Not Available Not Available Flonase Allergy Relief 50 mcg/actua tion nasal spray,neto pension 2 puff into both nostrils 2018 active Medicati on ID: [id number] D uration Value: 120 Prescri bed By [...] Updated DateTime 01/24/2024 175.26 cm 24.4 kg/m2 87117.74 g Gayatri Trevino [place] - [facility] 01/24/2024 08:42:37 Social History None recorded. Functional Status None recorded. Mental Status None recorded. Family History Nothing Reported. Medical History Condition Response Cancer Y Hypertension Y High Cholesterol Y Past Encounters Encounter ID Performer Location Encounter Start Date Encounter Closed Date Diagnosis/Indication Diagnosis SNOMED-CT Code Diagnosis ICD10 Code [id number] JESUS MANUEL EDWARDS MD [facility] [address] [place] [address] 01/24/2024 08:40:28 01/24/2024 10:09:48 Disorder of left Eustachian tube 3932568290 896977 H69.92 History of malignant neoplasm of oral cavity 311966972 Z85.819 Health Concerns Section Related Observation LastModified by Organization Detai ls LastModified Time None Recorded Concern Status LastModified by Organization Details LastModified Time None Recorded Payers Encounter Date Sequence Insurance Name Policy Number Policy Gutierrez Covered Member ID Gutierrez Member ID Guarantor Name 01/24/2024 1 [place]ICARE [place]: [employer] Adair Sullivan [id number] Adair Sullivan 01/24/2024 2 [facility] - PLAN 1 (MEDICARE SUPPLEMENT) [id number] Adairsharon Sullivan [id number] Adair Sullivan Notes Date Note Type Note Provider Name and Address Organization Details Recorded Time 01/24/2024 text/html 68 year old male presents [...] some memory issues. JESUS MANUEL EDWARDS MD [address] [place] [address], [place], [address], [facility] - [facility] 01/27/2024 12:23:23
== END 2024-03-04 09:47 | disposition home or self-care (01) ==
PROVIDERS: PCP Nurse Practitioner Family; Visit Provider Nurse Practitioner Family
DX: Z00.00 Encounter for general adult medical examination without abnormal findings (principal)

== ENCOUNTER → 2024-03-04 08:53 | Outpatient (BNVA) | payer MEDICARE, OTHER, SELFPAY | PROVIDERS: PCP Nurse Practitioner Family; Visit Provider Nurse Practitioner Family | DX: Z00.00 Encounter for general adult medical examination without abnormal findings (principal) | CPT/HCPCS: 96127; 99397 ==

== ENCOUNTER 2024-04-16 13:40 | Outpatient (REF) | payer MEDICARE, OTHER, SELFPAY ==
--- NOTE | ~2024-04-16 | XR_ITS ---
EXAMINATION: XR CHEST CLINICAL INFORMATION: ACUTE PNEUMONIA COMPARISON: None available. TECHNIQUE: 2 views of the chest were obtained. FINDINGS: No significant abnormality is noted involving the heart, lungs, mediastinum, bony thorax or soft tissues. XR/XR chest 2V IMPRESSION: Unremarkable chest examination. Electronically signed by: Lucian Arroyo MD 04/16/2024 03:01 PM [facility]
[2024-04-16 14:57] LABS: Influenza A PCR NEGATIVE (Negative); Influenza B PCR NEGATIVE (Negative); Resp Syncy Virus RNA Qual PCR POSITIVE (Negative); SARS COV2 PCR INHOUSE NEGATIVE (Negative)
[2024-04-16 15:10] LABS: Prostate Specific Antigen Scr 0.39 ng/mL (<0.05-4.0)
--- OUTSIDE RECORDS SUMMARY | 2024-04-16 16:08 | XMS_ITS | Continuity of Care Document ---
Author Organization [facility] Address [address] [place] [address] Care Team Providers Care Delivery Agent Name Role Phone Kitty CHAPMAN, Ulices Mackenzie [id number]/04[facility]24 - 04/03/24 [facility] [address] [place] [address] Encounter Type: Triage Allergies, Adverse Reactions, Alerts Substance Criticality Severity Reaction Reaction Severity Status codeine itch Active lisinopril cough Active MetroNIDAZOLE Benzoate vomiting Active NSAIDs Resolved Immunizations Given and Recorded Vaccine Date Status Refusal Reason pneumococcal 13-valent vaccine 1 10/31/16 Given 1Early/Late Reason: Accommodate D/C Medications Aricept 10 mg oral tablet 10 mg, 1, tablet, By Mouth, Daily at bedtime, Refills 0, Maintenance, 11/13/23 1:17:00 PM EDT, Partial fill upon patient request if the prescription is for a schedule II opioid drug. Start Date: 11/13/23 Status: Ordered Repeat number: 1 meloxicam 10 mg oral capsule 1 capsule = 10 mg, By Mouth, Daily, 0 Refills, Maintenance, 11/13/23 1:16:00 PM EDT, Partial fill upon patient request if the prescription is for a schedule II opioid drug. Start Date: 11/13/23 Status: Ordered Repeat number: 1 Rosuvastatin By Mouth, Daily, 0 Refills, Maintenance, 12/19/22 11:42:00 AM EDT, Partial fill upon patient requestif the prescription is for a schedule II opioid drug. Start Date: 12/19/22 Status: Ordered Repeat number: 1 Zyrtec Tablet 0 Refills, Maintenance, 07/03/23 9:47:00 AM EDT, Partial fill upon patient request if the prescription is for a schedule II opioid drug. Start Date: 07/03/23 Status: Ordered Repeat number: 1 Problem List Condition Confirmation Course Effective Dates Status H ealth Status Informant Loss of perception for taste Confirmed Active Loss of perception for taste Confirmed Active Asplenia Confirmed Active Diverticular disease Confirmed Active Hydrocephalus Confirmed Active Hypertension Confirmed Active Prostate cancer Confirmed Active Metastatic squamous cell carcinoma Confirmed Active Mixed sleep apnea Confirmed Active Major neurocognitive disorder Confirmed Active Neuropathy Confirmed Active Depression, major, single episode, mild Confirmed Active Urinary incontinence due to urethral sphincter incompetence Confirmed Active Ventricular shunt in place Confirmed Active Social History Social History Type Response Smoking Status Former smoker; Other : quit 1987; entered on: 10/19/16 Sex Sex Representation Male (finding) Patient Care team information Care Team Personnel Name: Katie Miranda MD Position: [facility] Physician - Oncology Member Role: Lifetime Consulting Physician Name: Ulices Tang NP Position: Reference Physician Member Role: PCP Address: [address] [place] [address] Telecom: Name: Marissa Pablo RN Position: [facility] Onco RN Member Role: Primary Care Nurse Care Team Related Persons Name: RIRI VARGAS Insurance Providers Guarantor name: MARIA ALEJANDRA VARGAS Health Plan Information #: 1 Payer: MEDICARE PART B OUTPT Member Number: NA Policy Number: NA Group Number: NA
--- OUTSIDE RECORDS SUMMARY | 2024-04-16 16:08 | XMS_ITS | Data Portability ---
Author Organization [place] - [facility], Allergy Address [address] [address] Care Team Providers Care Senior Principal Architect Name Role Phone LEANNE RUBALCAVA Referring Provider [phone] Assessment Encounter Date Assessment Date Assessment LastModified [...] were discussed. We discussed the risk of mcfp perforation following tube extrusion, with possible need [...] the office in [address] Azevedo for cancer surveillance and tube check. Patient was seen and examined by Dr. Azevedo. Iveth Larson PA-C functioned as a scribe for this visit. Exam and Laryngoscopy showed no evidence of disease. We will continue routine surveillance. 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 Myringotomy tube placed in left ear 01/24/2024. Dysphagia is stable. Denies weight loss, hemoptysis or dysphonia. Left cerumen impaction removed under microscope. Left tube in place and patent. TMs appear intact and well-aerated. FOL is stable without obvious mass, lesion or obstruction. Recommend CT neck with contrast to rule out cancer reoccurance. Patient plans to go to [place] for 2 months. He is scheduled for esophageal dilation with GI in July. Ariana Van PA-C functioned as a scribe for this visit. [email or web address] Not available 04/08/2024 17:07:50 Plan of Treatment Reminders Order Date Submit Date Provider Last Modified By Organization Details Last Modified Time Details Appointments Establish ed 30 2024 09:00A Ratna Shaffer MD Not available Not available Not available Lab None recorded. Referral None recorded. Procedures None recorded. Surgeries None recorded. Imaging CT, neck, soft tissue, w/ contrast 2024 025 [email or web address] 4 [facility], [address] [place], [address], 04/08/2024 16:37:06 Medication Orders ofloxacin 0.3 % ear drops [address] [facility] #[id number], [address] [place], [address], 01/24/2024 10:10:49 Patient TargetsNo targets recorded. Patient InstructionsNo instructions recorded. Reason for Referral None Reported. Results Created Date Observation Date Name Description Value Unit Range Abnormal Flag Note LastModifiedBy Organization Detail LastModifiedTime 10/10/19 24 audio gram No observ ation record ed. [email or web address] Not Available 09/22 14:07:58 11/12/19 24 08/07/2022 [...] ation record ed. [email or web address] Not Available 15:12:51 11/12/19 24 03/24/2019 imagi ng/di agnos tic resul t No [...] Organization Details Recorded Time Taste sense altered 595235563 Active 2018 Parageusi a; Note: Date Diagnosed : 05/07/2018 3:32 PM (R43.2) Not Available [facility] 4 02:40:44 Neck pain 24107522 Active 2021 Cervicalg ia; Note: Date Diagnosed : 10/03/2021 11:24 AM (M54.2) Not Available [facility] 4 02:40:47 History of malignant neoplasm of oral cavity 166991814 Active 2017 Personal history of malignant neoplasm of other sites of lip, oral cavity, and pharynx; Note: Date Diagnosed : 8 2:48 PM (Z85.818) Not Available [facility] 4 02:40:39 General unsteadin ess 554002705 Active 2018 Unsteadin ess on feet; Note: Date Diagnosed : 11/18/2018 11:18 AM (R26.81) Not Available [facility] 4 02:40:42 Disorder of smell 592798589 Active 2018 Other disturban irene of smell and taste; Note: Date Diagnosed : 11/18/2018 11:12 AM (R43.8) Not Available [facility] 4 02:40:48 Disorder of taste 202555760 Active 2018 Other disturban irene of smell and taste; Note: Date Diagnosed : 11/18/2018 11:12 AM (R43.8) Not Available [facility] 4 02:40:48 Impacted cerumen in left ear 02483699103 99685 Active 2016 Impacted cerumen, left ear; Note: Date Diagnosed : 08/15/2016 9:37 AM (H61.22) Not Available [facility] 4 02:40:46 Xerostomi a 02014512 Active 2018 Dry mouth, unspecifi ed; Note: Date Diagnosed : 05/07/2018 3:32 PM (R68.2) Not Available [facility] 4 02:40:50 Dizziness and giddiness 307802519 Active 2018 Dizziness and giddiness ; Note: Date Diagnosed : 9 11:50 AM (R42) Not Available [facility] 4 02:40:45 Nasal congestio n 89327129 Active 2018 Nasal congestio n; Note: Date Diagnosed : 05/07/2018 3:32 PM (R09.81) Not Available [facility] 4 02:40:44 Follow-up visit Active 2019 Encounter for follow-up examinati on after completed treatment for malignant neoplasm; Note: Date Diagnosed : 09/09/2019 2:33 PM (Z08) Medical surveilla nce following completed treatment ; Note: Date Diagnosed : 8 11:54 AM (Z09) ; Start Date : 8 Not Available [facility] 4 02:40:46 Mass of neck 326068463 Active 2016 Localized swelling, mass and lump, neck; Note: Date Diagnosed : 08/15/2016 9:37 AM (R22.1) Not Available [facility] 4 02:40:49 Neck swelling 445163546 Active 2016 Localized swelling, mass and lump, neck; Note: Date Diagnosed : 08/15/2016 9:37 AM (R22.1) Not Available [facility] 4 02:40:50 Sensorine ural hearing loss of bilateral ears 370720485 Active 2018 Sensorine ural hearing loss, bilateral ; Note: Date Diagnosed : 9 11:12 AM (H90.3) Not Available [facility] 4 02:40:42 Dysphagia 10754778 Active 2018 Dysphagia , unspecifi ed; Note: Date Diagnosed : 9 11:55 AM (R13.10) Not Available [facility] 4 02:40:49 Recurrent aphthous stomatiti s 967331954 Active 2018 Aphthous stomatiti s (major) (minor); Note: Date Diagnosed : 08/12/2018 11:08 AM (K12.0) Not Available [facility] 4 02:40:48 Dysphonia 17470533 Active 2018 Hoarsenes s; Note: Date Diagnosed : 9 11:58 AM (R49.0) Not Available [facility] 4 02:40:44 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 88257095 Active 2016 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, face and neck; Note: Date Diagnosed : 08/31/2016 2:41 PM (C77.0) Not Available [facility] 4 02:40:38 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 06154788 Active 2016 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, face and neck; Note: Date Diagnosed : 08/31/2016 2:41 PM (C77.0) Not Available [facility] 4 02:40:38 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 02278792 Active 2016 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, face and neck; Note: Date Diagnosed : 08/31/2016 2:41 PM (C77.0) Not Available [facility] 4 02:40:38 Impacted cerumen of bilateral ears 24348332564 89933 Active 2017 Impacted cerumen, bilateral ; Note: Date Diagnosed : 06/26/2017 11:13 AM (H61.23) Not Available [facility] 4 02:40:39 Chronic pansinusi tis 21910096 Active 2022 Chronic pansinusi tis; Note: Date Diagnosed : 08/23/2022 5:22 PM (J32.4) Not Available [facility] 4 02:40:45 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); Note: Date Diagnosed : 09/20/2017 4:21 PM (M27.2) Not Available [facility] 4 02:40:47 Primary malignant neoplasm of unknown site 314382974 Active 2023 JESUS MANUEL AZEVEDO MD [address] [place] [address], [place], [address] , [facility] - [facility] 4 14:44:49 Tinnitus of left ear 67575068798 06 Active 2023 JESUS MANUEL AZEVEDO MD [address] [facility] [place] [address], [facility] [place], [address] , [place] - [facility] 4 14:47:04 Disorder of left Eustachia n tube 02738929080 98519 Active 2023 Siria MCCURDY [address] [facility] [place] [address], [facility] [place], [address] , [place] - [facility] 4 09:28:47 Feeling of lump in throat 316677623 Active 2024 ARIANA VAN PA-C 100 [facility],[place] [address], [place], [address] , [place] - [facility] 5 16:26:15 Problem Notes None recorded. Procedures Surgical History Date Name Laterality Status Provider Name and Address Organization Details Recorded Time 04/08/19 25 Cerumen removal with microscope left completed ARIANA VAN PA-C [address] [place] [address],[address], [address], [facility] - [facility] 04/08/2024 16:39:45 04/08/19 25 FOL_DP completed ARIANA VAN PA-C [address] [place] [address],[address], [address], [facility] - [facility] 04/08/2024 16:25:13 01/24/20 24 Myringotomy w/Placement of Tube left completed IVETH LARSON PA-C 100 [facility],[address], [address], [facility] - [facility] 01/24/2024 13:01:59 01/24/20 24 FOL_DP completed IVETH LARSON PA-C 100 [facility],[address], [address], [place] - [facility] 01/24/2024 13:01:41 01/24/20 24 Tympanometry (10473) completed Siria MCCURDY [address] [facility] [place] [address], [place], [address], [place] - [facility] 01/24/2024 09:28:13 10/09/19 24 Air & Speech Audio with Tymps (51437, 79320 & 38459) completed SIRIA HAWKINS 100 [facility],[place] [address], [place], [address], [facility] 10/09/2023 15:21:02 10/09/19 24 FFL_RE completed JESUS MANUEL AZEVEDO MD 100 [facility] [address], [place], [address], [facility] 10/09/2023 14:57:24 Imaging Results Imaging Date Name Status LastModified by [facility] Details LastModified Time 10/10/2023 audiogram completed [email or web address] Information n ot available 10/10/2023 14:07:58 08/07/2022 [...] Name and Address Organization Details Recorded Time 192554 metronida zole medicatio n other Not available Not available 08/06/2023 6922 RxNorm React ion: unkno wn, unspe cifie d;; Not Available [facility] 4 01:08:47 553770 lisinopri l medicatio n other Not available Not available 08/06/2023 92265 RxNorm React ion: unkno wn, unspe cifie d;; Not Available [facility] 4 01:08:49 019399 codeine sulfate medicatio n other Not available Not available 08/06/2023 25060 RxNorm React ion: unkno wn, unspe cifie d;; Not Available [facility] 4 01:08:51 Medications Name Sig Start Date Stop Date Status Note LastModified by Organization Details LastModified Time amoxicill in 500 mg capsule TAKE 4 CAPSULES BY MOUTH 1 PRIOR TO DENTAL APPOINTM ENT 01/23 completed Not Available Not Available Not Available prednison e 10 mg tablet 01/23 completed Medicati on ID: [id number] P shanterimonalisa [place] By Name: Jesus Manuel escamilla MD Brand [...] mg tablet 05/07 completed Medicati on ID: [id number] P rescribe d By Name: BetteSIMONA Del Angel nd Name: predniso ne Send Method: E-Prescr ibed Sub s Allowed: subs OK Speci al Instruct ion: Take 3 tabs daily for 3 days then 2 tabs daily for 3 days then 1 tabs daily for 3 days then stop Med icationG enericNa me: predniso ne Not Available Not Available Not Available simvastat in 10 mg tablet 01/23 completed Medicati on ID: [id number] D uration Value: 30 Brand Name: simvasta tin Send Method: E-Prescr ibed Sub s Allowed: subs OK Medic ationGen ericName : simvasta tin Not Available Not Available Not Available amlodipin e 5 mg tablet 2016 active Medicati on ID: 165236 D uration Value: 30 Brand Name: amlodipi [...] small amount 2018 active Medicati on ID: 484019 D uration Value: 14 Prescri bed By [...] mg tablet 2016 active Medicati on ID: 933307 D uration Value: 90 Brand Name: valsarta [...] mg capsule 2016 active Medicati on ID: 616570 D uration Value: 30 Brand Name: gabapent in Send Method: E-Prescr ibed Sub s Allowed: subs OK Speci al Instruct ion: TAKE ONE CAPSULE BY MOUTH 3 TIMES A DAY Medi cationGe nericNam e: gabapent in Not Available Not Available Not Available zolpidem 5 mg tablet 2017 active Medicati on ID: 867129 D uration Value: 15 Brand Name: zolpidem [...] extended release 2016 active Medicati on ID: 768227 D uration Value: 90 Brand Name: Coreg CR Send Method: E-Prescr ibed Sub s Allowed: subs OK Speci al Instruct ion: TAKE 1 CAPSULE BY MOUTH ONCE A DAY Medi cationGe nericNam e: Coreg CR Not Available Not Available Not Available Flonase Allergy Relief 50 mcg/actua tion nasal spray,neto pension 2 puff into both nostrils 2018 active Medicati on ID: 798009 D uration Value: 120 Prescri bed By [...] Updated DateTime 10/09/2023 175.26 cm 24.4 kg/m2 57232.74 g Cynthia Pink [facility] 10/09/2023 14:38:25 Date Recorded Body height Body mass index (BMI) Body weight Provider Name and Address Organization Details Last Updated DateTime 01/24/2024 175.26 cm 24.4 kg/m2 52096.74 g Gayatri Trevino [facility] 01/24/2024 08:42:37 Social History None recorded. Functional Status None recorded. Mental Status None recorded. Family History Nothing Reported. Medical History Condition Response Cancer Y Hypertension Y High Cholesterol Y Past Encounters Encounter ID Performer Location Encounter Start Date Encounter Closed Date Diagnosis/Indication Diagnosis SNOMED-CT Code Diagnosis ICD10 Code Diagnosis Note [id number] JESUS MANUEL AZEVEDO MD [facility] [address] [address] 10/09/2023 14:15:21 10/09/2023 15:54:54 Primary malignant neoplasm of unknown site 874061542 C80.1 She snores and has hypersomno lence. I recommend a PSG to assess for DENNISE. If negative I recommend observatio n. Screening for malignant neoplasm of respiratory tract 128604890 Z12.2 Exam and Laryngosco py showed no evidence of disease. We will continue routine surveillan ce. Follow up 1 year. Tinnitus of left ear 615 1987245 106 H93.12 We obtained an audio to better assess. Audio showed SNHL AU fairly similar to audio from 08/14. Word understand ing slightly worse . I think his blocked ear is due to ETD. I discussed autoinsuff lation. F/u in 1 year with a HTF. 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 [id number] SIRIA HAWKINS [facility] [address] [address] 10/09/2023 15:18:57 10/10/2023 17:14:54 Sensorineural hearing loss of bilateral ears 160898224 H90.3 Audiologic al evaluation results: Right ear: {{Normal* Mild Moder ate Modera tely-sever e Severe P rofound}} {{hearing sloping to a mild slopi ng to a moderate* sloping to moderately severe slo ping to severe slo ping to profound f lat high frequency low frequency mid frequency cookie bite montenegro curve}} {{with sen sorineural hearing loss with* cond uctive hearing loss with mixed hearing loss with}} {{excellen t* good fa ir poor no measurable }} word recognitio n. Left ear: {{Normal* Mild Moder ate Modera tely-sever e Severe P rofound}} {{hearing sloping to a mild slopi ng to a moderate s loping to moderately severe* sl oping to severe slo ping to profound f lat high frequency low frequency mid frequency cookie bite montenegro curve}} {{with sen sorineural hearing loss with* cond uctive hearing loss with mixed hearing loss with}} {{excellen t good* fa ir poor no measurable }} word recognitio n. Tympanomet ry: Right Ear:{{Type A* Type As Type Ad Type C Type C, shallow & rounded Ty pe B Type B with large volume Cou ld not maintain a hermetic seal}} Left Ear:{{Type A Type As Type Ad Type C* Type C, shallow & rounded Ty pe B Type B with large volume Cou ld not maintain a hermetic seal}} [id number] JESUS MANUEL AZEVEDO MD [facility] of [facility] on [address] [place] [address] 01/24/2024 08:40:28 01/24/2024 10:09:48 Disorder of left Eustachian tube 7142160432 524094 H69.92 Tympanomet ry:Right Ear:{{Type A* Type As Type Ad Type C Type C, shallow & rounded Ty pe B Type B with large volume Cou ld not maintain a hermetic seal}}Left Ear:{{Type A Type As Type Ad Type C* Type C, shallow & rounded Ty pe B Type B with large volume Cou ld not maintain a hermetic seal}} History of malignant neoplasm of oral cavity 413853599 Z85.819 [id number] JESUS MANUEL AZEVEDO MD [facility] [address] [place] [address] 04/08/2024 15:00:10 04/08/2024 16:37:06 Disorder of left Eustachian tube 7001402700 972025 H69.92 Feeling of lump in throat 895825883 R09.89 History of malignant neoplasm of oral cavity 896849033 Z85.819 Impacted c erumen in left ear 9364177054 113513 H61.22 Health Concerns Section Related Observation LastModified by Organization Detai ls LastModified Time None Recorded Concern Status LastModified by Organization Details LastModified Time None Recorded Advance Directives Directive None Recorded Payers Encounter Date Sequence Insurance Name Policy Number Policy Gutierrez Covered Member ID Gutierrez Member ID Guarantor Name 10/09/2023 1 [place] [employer] Adair Sullivan [id number] Adair Sullivan 10/09/2023 2 [facility] - PLAN 1 (MEDICARE SUPPLEMENT) [id number] Adair Sullivan [id number] Adair Sullivan 10/09/2023 1 [place] [employer] Adair Sullivan [id number] Adair Sullivan 10/09/[address] [facility] - PLAN 1 (MEDICARE SUPPLEMENT) [id number] 1 Adair Sullivan [id number] Adair Sullivan 01/24/2024 1 [place] [facility] Adair Sullivan [id number] Adair Sullivan 01/24/[address] [facility] 1 (MEDICARE SUPPLEMENT) [id number] Adair Sullivan [id number] Adair Sullivan 04/08/2024 1 [place] [facility] Adair Sullivan [id number] Adair Sullivan 04/08/[address] [facility] 1 (MEDICARE SUPPLEMENT) [id number] 1 Adair Sullivan [id number] Adair Sullivan Notes Date Note Type Note [...] and this seemed to help. JESUS MANUEL AZEVEDO MD [address] [place] [address], [address], [facility] 10/09/2023 15:55:45 01/24/2024 text/html 68 year [...] patient has some memory issues. 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 Myringotomy tube placed in left ear 01/24/[address] Azevedo. Patient reports left aural fullness. Endorses left globus started 2-3 weeks ago with associated sore throat. No inciting event or URI. Throat pain since resolved. Dysphagia and choking are stable. Denies weight loss, hemoptysis or dysphonia. Patient plans to go to [place] for 2 months. He is scheduled for esophageal dilation with GI in July. JESUS MANUEL AZEVEDO MD [address] [place] [address], [place], [address], [facility] - [facility] 04/09/2024 08:44:55
--- OUTSIDE RECORDS SUMMARY | 2024-04-16 16:08 | XMS_ITS | Continuity of Care Document ---
Author Organization [facility], [facility] Address [address] [place] [address] Care Team Providers Care Superintendent Of Schools Name Role Phone LEANNE RUBALCAVA Referring Provider [phone] Assessment Encounter Date Assessment Date Assessment LastModified by Organization Details LastModified Time 04/08/2024 04/08/2024 68yo male with history of [...] cancer reoccurance. Patient plans to go to [place] for 2 months. He is scheduled for esophageal dilation with GI in July. Ariana Helms PA-C functioned as a scribe for this visit. [email or web address] Not available 04/08/2024 17:07:50 Plan of Treatment Reminders Order Date Submit Date Provider Last Modified By Organization Details Last Modified Time Details Appointments Establish ed 30 2024 09:00A M JESUS MANUEL Shaffer MD Not available Not available Not available Lab None recorded. Referral None recorded. Procedures None recorded. Surgeries None recorded. Imaging CT, neck, soft tissue, w/ contrast 2024 025 [email or web address] 4 [facility], [address] [place], [address], 04/08/2024 16:37:06 Medication Orders None recorded. Patient TargetsNo targets recorded. Patient InstructionsNo instructions recorded. Reason for Referral None Reported. 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 Active 2017 Personal history of malignant neoplasm of other sites of lip, oral cavity, and pharynx; Note: Date Diagnosed : 8 2:48 PM (Z85.818) Not Available [facility] 4 02:40:39 General unsteadin ess 858375721 Active 2018 Unsteadin ess on feet; Note: Date Diagnosed : 11/18/2018 11:18 AM (R26.81) Not Available [facility] 4 02:40:42 Disorder of smell 660252927 Active 2018 Other disturban irene of smell and taste; Note: Date Diagnosed : 11/18/2018 11:12 AM (R43.8) Not Available [facility] 4 02:40:48 Disorder of taste 324239963 Active 2018 Other disturban irene of smell and taste; Note: Date Diagnosed : 11/18/2018 11:12 AM (R43.8) Not Available [facility] 4 02:40:48 Impacted cerumen in left ear 37835400734 10850 Active 2016 Impacted cerumen, left ear; Note: Date Diagnosed : 08/15/2016 9:37 AM (H61.22) Not Available [facility] 4 02:40:46 Xerostomi a 17081880 Active 2018 Dry mouth, unspecifi ed; Note: Date Diagnosed : 05/07/2018 3:32 PM (R68.2) Not Available [facility] 4 02:40:50 Dizziness and giddiness 882108150 Active 2018 Dizziness and giddiness ; Note: Date Diagnosed : 9 11:50 AM (R42) Not Available [facility] 4 02:40:45 Nasal congestio n 24656391 Active 2018 Nasal congestio n; Note: Date Diagnosed : 05/07/2018 3:32 PM (R09.81) Not Available [facility] 4 02:40:44 Follow-up visit Active 2019 Encounter for follow-up examinati on after completed treatment for malignant neoplasm; Note: Date Diagnosed : 09/09/2019 2:33 PM (Z08) Medical surveilla nce following completed treatment ; Note: Date Diagnosed : 8 11:54 AM (Z09) ; Start Date : 8 Not Available [facility] 4 02:40:46 Mass of neck 444024201 Active 2016 Localized swelling, mass and lump, neck; Note: Date Diagnosed : 08/15/2016 9:37 AM (R22.1) Not Available [facility] 4 02:40:49 Neck swelling 043957465 Active 2016 Localized swelling, mass and lump, neck; Note: Date Diagnosed : 08/15/2016 9:37 AM (R22.1) Not Available [facility] 4 02:40:50 Sensorine ural hearing loss of bilateral ears 644498318 Active 2018 Sensorine ural hearing loss, bilateral ; Note: Date Diagnosed : 9 11:12 AM (H90.3) Not Available [facility] 4 02:40:42 Dysphagia 95377838 Active 2018 Dysphagia , unspecifi ed; Note: Date Diagnosed : 9 11:55 AM (R13.10) Not Available [facility] 4 02:40:49 Recurrent aphthous stomatiti s 828329560 Active 2018 Aphthous stomatiti s (major) (minor); Note: Date Diagnosed : 08/12/2018 11:08 AM (K12.0) Not Available [facility] 4 02:40:48 Dysphonia 17470967 Active 2018 Hoarsenes s; Note: Date Diagnosed : 9 11:58 AM (R49.0) Not Available [facility] 4 02:40:44 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 06318399 Active 2016 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, face and neck; Note: Date Diagnosed : 08/31/2016 2:41 PM (C77.0) Not Available [facility] 4 02:40:38 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 58582336 Active 2016 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, face and neck; Note: Date Diagnosed : 08/31/2016 2:41 PM (C77.0) Not Available [facility] 4 02:40:38 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 89996070 Active 2016 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, face and neck; Note: Date Diagnosed : 08/31/2016 2:41 PM (C77.0) Not Available [facility] 4 02:40:38 Impacted cerumen of bilateral ears 75915079643 80597 Active 2017 Impacted cerumen, bilateral ; Note: Date Diagnosed : 06/26/2017 11:13 AM (H61.23) Not Available [facility] 4 02:40:39 Chronic pansinusi tis 89234557 Active 2022 Chronic pansinusi tis; Note: Date Diagnosed : 08/23/2022 5:22 PM (J32.4) Not Available [facility] 4 02:40:45 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); Note: Date Diagnosed : 09/20/2017 4:21 PM (M27.2) Not Available [facility] 4 02:40:47 Primary malignant neoplasm of unknown site 811249642 Active 2023 JESUS MANUEL EDWARDS MD [address] [facility] [place] [address], [place], [address] , [place] - [facility] 4 14:44:49 Tinnitus of left ear 88707509502 06 Active 2023 JESUS MANUEL EDWARDS MD [address] [facility] [place] [address], [place], [address] , [place] - [facility] 4 14:47:04 Disorder of left Eustachia n tube 31364407553 68430 Active 2023 Lydia MCCURDY [address] [facility],[place] [address], [place], [address] , [place] - [facility] 4 09:28:47 Feeling of lump in throat 279383175 Active 2024 ARIANA HELMS PA-C [address] [place] [address],[place] [address], [place], [address] , [place] - [facility] 5 16:26:15 Problem Notes None recorded. Procedures Surgical History Date Name Laterality Status Provider Name and Address Organization Details Recorded Time 04/08/19 25 Cerumen removal with microscope left completed ARIANA HELMS PA-C [address] [place] [address],[address], [address], [place] - [facility] 04/08/2024 16:39:45 04/08/19 25 FOL_DP completed ARIANA HELMS PA-C [address] [place] [address],[address], [address], [place] - [facility] 04/08/2024 16:25:13 01/24/20 24 Myringotomy w/Placement of Tube left completed KAILASH LARSON PA-C [address] [place] [address],[address], [address], [place] - [facility] 01/24/2024 13:01:59 01/24/20 24 FOL_DP completed KAILASH LARSON PA-C [address] [place] [address],[address], [address], [place] - [facility] 01/24/2024 13:01:41 01/24/20 24 Tympanometry (06171) completed HARSHA BIGGS, AuD [address] [facility],[address], [address], [facility] 01/24/2024 09:28:13 10/09/19 24 Air & Speech Audio with Tymps (75946, 08265 & 26103) completed AMAN CLEMENTS, AUD [address] [facility],[address], [address], [facility] 10/09/2023 15:21:02 10/09/19 24 FFL_RE completed JESUS MANUEL EDWARDS MD [address] [facility],[address], [address], [facility] 10/09/2023 14:57:24 Imaging Results None recorded. Procedure Notes None recorded. Medical Equipment None Reported. Allergies Allergen ID Allergen Name Allergen Category Reaction Reaction Severity Criticality Documentation Date Start Date Code Code System Note Provider Name and Address Organization Details Recorded Time 809565 metronida zole medicatio n other Not available Not available 08/06/2023 6922 RxNorm React ion: unkno wn, unspe cifie d;; Not Available [facility] 4 01:08:47 587932 lisinopri l medicatio n other Not available Not available 08/06/2023 59977 RxNorm React ion: unkno wn, unspe cifie d;; Not Available [facility] 4 01:08:49 021650 codeine sulfate medicatio n other Not available Not available 08/06/2023 12627 RxNorm React ion: unkno wn, unspe cifie d;; Not Available [facility] 4 01:08:51 Medications Name Sig Start Date Stop Date Status Note LastModified by Organization Details LastModified Time amoxicill in 500 mg capsule TAKE 4 CAPSULES BY MOUTH 1 PRIOR TO DENTAL APPOINTM ENT 01/23 completed Not Available Not Available Not Available prednison e 10 mg tablet 01/23 completed Medicati on ID: 364451 P rescribe d By Name: Jesus Manuel [...] mg tablet 05/07 completed Medicati on ID: 354226 P mark [place] By Name: SIMONA Shook nd Name: [...] mg tablet 01/23 completed Medicati on ID: 075985 D uration Value: 30 Brand Name: simvasta tin Send Method: E-Prescr ibed Sub s Allowed: subs OK Medic ationGen ericName : simvasta tin Not Available Not Available Not Available amlodipin e 5 mg tablet 2016 active Medicati on ID: 668256 D uration Value: 30 Brand Name: amlodipi [...] small amount 2018 active Medicati on ID: 046526 D uration Value: 14 Prescri bed By [...] mg tablet 2016 active Medicati on ID: 056655 D uration Value: 90 Brand Name: valsarta [...] mg capsule 2016 active Medicati on ID: 446435 D uration Value: 30 Brand Name: gabapent in Send Method: E-Prescr ibed Sub s Allowed: subs OK Speci al Instruct ion: TAKE ONE CAPSULE BY MOUTH 3 TIMES A DAY Medi cationGe nericNam e: gabapent in Not Available Not Available Not Available zolpidem 5 mg tablet 2017 active Medicati on ID: 079718 D uration Value: 15 Brand Name: zolpidem [...] extended release 2016 active Medicati on ID: 969517 D uration Value: 90 Brand Name: Coreg CR Send Method: E-Prescr ibed Sub s Allowed: subs OK Speci al Instruct ion: TAKE 1 CAPSULE BY MOUTH ONCE A DAY Medi cationGe nericNam e: Coreg CR Not Available Not Available Not Available Flonase Allergy Relief 50 mcg/actua tion nasal spray,neto pension 2 puff into both nostrils 2018 active Medicati on ID: 661580 D uration Value: 120 Prescri bed By Name: Jesus Manuel escamilla MD Brand Name: Flonase Allergy Relief S end Method: E-Prescr ibed Sub s Allowed: subs OK Medic ationGen ericName : Flonase Allergy Relief Not Available Not Available Not Available Vitals None Recorded Social History None recorded. Functional Status None recorded. Mental Status None recorded. Family History Nothing Reported. Medical History Condition Response Cancer Y Hypertension Y High Cholesterol Y Past Encounters Encounter ID Performer Location Encounter Start Date Encounter Closed Date Diagnosis/Indication Diagnosis SNOMED-CT Code Diagnosis ICD10 Code Diagnosis Note [id number] JESUS MANUEL EDWARDS MD [facility] [address] [address] 04/08/2024 15:00:10 04/08/2024 16:37:06 Disorder of left Eustachian tube 4091008634 392408 H69.92 Feeling of lump in throat 537782751 R09.89 History of malignant neoplasm of oral cavity 367713110 Z85.819 Impacted c erumen in left ear 0581609213 568516 H61.22 Health Concerns Section Related Observation LastModified by Organization Detai ls LastModified Time None Recorded Concern Status LastModified by Organization Details LastModified Time None Recorded Payers Encounter Date Sequence Insurance Name Policy Number Policy Gutierrez Covered Member ID Gutierrez Member ID Guarantor Name 04/08/2024 1 [place]ICARE [place]: [employer] Adairsharon Sullivan [id number] Adair Sullivan 04/08/2024 2 [employer] [facility] [employer] - PLAN 1 (MEDICARE SUPPLEMENT) [id number] Adair Sullivan [id number] Adair Sullivan Notes Date Note Type Note Provider Name and Address Organization Details Recorded Time 04/08/2024 text/html 68yo male with history of head/neck cancer s/p chemo and radiation 7 years ago presents for left globus sensation. Myringotomy tube placed in left ear 01/24/[address] Edwards. Patient reports left aural fullness. Endorses left globus started 2-3 weeks ago with associated sore throat. No inciting event or URI. Throat pain since resolved. Dysphagia and choking are stable. Denies weight loss, hemoptysis or dysphonia. Patient plans to go to [place] for 2 months. He is scheduled for esophageal dilation with GI in July. JESUS MANUEL EDWARDS MD [address] [place] [address], [place], [address], [place] - [facility] 04/09/2024 08:44:55
--- OUTSIDE RECORDS SUMMARY | 2024-04-16 16:08 | XMS_ITS | Continuity of Care Document ---
Author Organization [facility] Address [address] [place] [address]- Care Team Providers Care Programmer Developer Name Role Phone Kitty CHAPMAN, Ulices Mackenzie Primary Care Physician Encounter [facility] Date(s): 02/18/24 - 03/19/24 [facility] [address] [place] [id number] Encounter Type: Triage Allergies, Adverse Reactions, Alerts Substance Criticality Severity Reaction Reaction Severity Status codeine itch Active lisinopril cough Active NSAIDs Resolved MetroNIDAZOLE Benzoate vomiting Active Immunizations Given and Recorded Vaccine Date Status [...] Team Personnel Name: Katie Miranda MD Position: [facility] Physician - Oncology Member Role: Lifetime Consulting Physician Name: Ulices Tang NP Position: Reference Physician Member Role: PCP Address: [address] [place] [address] Telecom: Name: Marissa Pablo RN Position: [facility] Onco RN Member Role: Primary Care Nurse Care Team Related Persons Name: RIRI VARGAS Insurance Providers Guarantor name: MARIA ALEJANDRA VARGAS [employer] Plan Information #: 1 Payer: MEDICARE PART B OUTPT Member Number: NA Policy Number: NA Group Number: NA
--- OUTSIDE RECORDS SUMMARY | 2024-04-16 16:09 | XMS_ITS ---
Author Organization Carson Gilmore MD Address [address] [place] [phone] Care Team Providers Care Software Business Analyst Name Role Phone Carson Gilmore Primary Care Provider Encounters Encounter Location Date Provider Diagnosis Carson Gilmore MD [address] [place] [id number] 04/16/2024 Carson Gilmore Acute pneumonia J18.9 Assessments Encounter Date Diagnosis (ICD Code) Assessment Notes Treatment Notes Treatment Clinical Notes Section Notes 04/16/2024 Acute pneumonia (ICD-10 - J18.9) Plan Of Treatment Pending Test Test Name Order Date XR CHEST 2 VIEW PA & LAT 04/16/2024 Progress Notes * MARIA ALEJANDRA VARGAS KDOB:1955 (68 yo M)Acc No.[id number]:04/16/2024 Patient:?MARIA ALEJANDRA VARGAS :1955???Age:68 Y???Sex:Male Address:[address] [place], [address] Subjective: * Chief Complaints: * ??? * Medical History:? * Surgical History:? * Hospitalization/Major Diagno stic Procedure:? * Medications:? Objective: * Vitals:? * Physical Examination:? Assessment: * Assessment: 1.?Acute pneumonia - J18.9 ( Primary)??? Plan: * Treatment: * Procedure Codes:? * true * Date:? Generated for Printi ng/Faelizabethg/eTransmitting on:?04/16/2024 04:08 PM EST
--- OUTSIDE RECORDS SUMMARY | 2024-04-16 16:09 | XMS_ITS ---
Author Organization Carson Gilmore MD Address [address] [place] [phone] Care Team Providers Care Nurses Assistant Name Role Phone Deirdre Carson Primary Care Provider Results Component Value Reference Range Notes SARS-CoV2/FLU/RSV (Not yet r eviewed by provider) Interpretation: Performing Lab:[facility], [address] [place] [phone] Notes/Report: Influenza A PCR NEGATIVE Negative Influenza B PCR NEGATIVE Negative Resp Syncy Virus RNA Qual PCR POSITIVE Negative SARS COV2 PCR INHOUSE NEGATIVE Negative All test results must be correlated with clinical findings. Negative results do not preclude SARS-CoV2, influenza A virus, influenza B virus and/or RSV infection and should not be used as the sole basis for treatment or other patient management decisions. Negative results must be combined with clinical observations, patient history, and epidemiological information. This test has not been evaluated for monitoring treatment of infection. This test has been authorized by the FDA under an Emergency Use Authorization (EUA) for use by authorized laboratories. Testing performed on the [employer] GeneXpert utilizing real-time RT-PCR. All SARS CoV2 and positive influenza A/B results are reported to [facility]. Encounters Encounter Location Date Provider Diagnosis Carson Gilmore MD [address] [place] [phone] 04/16/2024 Carson Gilmore Infection, respiratory J98.8 Assessments Encounter Date Diagnosis (ICD Code) Assessment Notes Treatment Notes Treatment Clinical Notes Section Notes 04/16/2024 Infection, respiratory (ICD-10 - J98.8) Plan Of Treatment Pending Test Test Name Order Date SARS-CoV2/FLU/RSV 04/16/2024 Progress Notes * MARIA ALEJANDRA VARGAS KDOB:1955 (68 yo M)Acc No.[id number]:04/16/2024 Patient:?MARIA ALEJANDRA VARGAS K :1955???Age:68 Y???Sex:Male Address: [address], [place], [address] Subjective: * Chief Complaints: * ??? * Medical History:? * Surgical History:? * Hospitalization/Major Diagno stic Procedure:? * Medications:? Objective: * Vitals:? * Physical Examination:? Assessment: * Assessment: 1.?Infection, respiratory - J98.8 (Primary)??? Plan: * Treatment: * Procedure Codes:? * true * Date:? Generated for Anselmo torrez/Darrin/eTransmitting on:?04/16/2024 04:08 PM EST
--- OUTSIDE RECORDS SUMMARY | 2024-04-16 16:09 | XMS_ITS ---
Author Organization Carson Gilmore MD Address [address] [place] [phone] Care Team Providers Care Checkering Machine Operator Name Role Phone Carson Gilmore Primary Care Provider [phone] Results Component Value Reference Range Notes UA ClnCatch+Micro w/rflx Cul t Reviewed date:01/21/2024 04:21:26 PM Interpretation: Performing Lab:[facility], [address] [place] [phone] Notes/Report: Urine, Clean Catch Color Urine Yellow Appearance Urine Turbid PH 6.0 5.0-9.0 Glucose Urine UA Negative Negative mg/dL Urine Blood Moderate (2+) Negative Specific [place] - Urine 1.025 1.005-1.025 Urine Protein 30 [...] Date Provider Diagnosis Carson Gilmore MD [address] [place] [phone] 01/21/2024 Carson Gilmore UTI (urinary tract infection) N39.0 Assessments Encounter Date Diagnosis (ICD Code) Assessment Notes Treatment Notes Treatment Clinical Notes Section Notes 01/21/2024 UTI (urinary tract infection) (ICD-10 - N39.0) Plan Of Treatment No Information Progress Notes * MARIA ALEJANDRA VARGAS KDOB:1955 (68 yo M)Acc No.[id number]:01/21/2024 Progress Note Patient:?MARIA ALEJANDRA VARGAS Provider:?Carson Gilmore MD :1955???Age:68 Y???Sex:Male [place] e:01/21/2024 Address:[address], [facility] [id number] Subjective: * Chief Complaints: * ???1. Ua. * Medical History:? Objective: * Vitals:? Assessment: * Assessment: 1.?UTI (urinary tract infect ion) - N39.0??? Plan: * Treatment: * * The named appointment provid er may or may not be the originator of this progress note, and it is not deemed complete until electronically signed by the appointment provider. Sign off status: Pending * Provider:?Carson Gilmore MD Date:?1 Generated for Anselmo torrez/Darrin/Deltasmitting on:?04/16/2024 04:08 PM EST
--- OUTSIDE RECORDS SUMMARY | 2024-04-16 16:09 | XMS_ITS | Patient Health Record ---
Author Organization Carson Gilmore MD Address [address] [place], [place] [phone] Care Team Providers Care Screen Making Supervisor Name Role Phone Carson Gilmore Primary Care Provider Results Component Value Reference Range Notes Urine Culture Reviewed date:01/24/2024 11:57:16 AM Interpretation: Performing Lab:[facility], [address] [place] [phone] Notes/Report: O:CITKOS Citrobacter koseri Urine Culture Quant Urine Culture > 100,000 cfu/mL Cefazolin 4 Cefepime <=0.12 Ceftriaxone <=0.25 Ciprofloxacin <=0.06 Gentamicin <=1 Nitrofurantoin 32 Trimethoprim/Sulfamethox azole <=20 UA ClnCatch+Micro w/rflx Cul t Reviewed date:01/21/2024 04:21:26 PM Interpretation: Performing Lab:[facility], [address] [place] [phone] Notes/Report: Urine, Clean Catch Color Urine Yellow Appearance Urine Turbid PH 6.0 5.0-9.0 Glucose Urine UA Negative Negative mg/dL Urine Blood Moderate (2+) Negative Specific [place] - Urine 1.025 1.005-1.025 Urine Protein 30 (1+) Neg-Trace mg/dL Urine Ketones Trace Negative mg/dL Nitrite Urine Positive Negative Leukocyte Esterase Urine Moderate (2+) Negative RBC Urine 3-5 0-2 /HPF WBC Urine >50 0-5 /HPF Squamous Epithelial Cell Urine 3-5 0-2 /HPF Bacteria Urine 4+ None Seen Hyaline Casts Urine 0-2 0-2 /LPF SARS-CoV2/FLU/RSV (Not yet r eviewed by provider) Interpretation: Performing Lab:[address] [phone] Notes/Report: Influenza A PCR NEGATIVE Negative Influenza [...] by authorized laboratories. Testing performed on the [employer] GeneXpert utilizing real-time RT-PCR. All SARS CoV2 and positive influenza A/B results are reported to [facility]. Prostate Specific Antigen Sc r (Not yet reviewed by provider) Interpretation: Performing Lab:[address] [phone] Notes/Report: Prostate Specific Antigen Scr 0.39 <0.05-4.0 ng/mL PSA methodology: Llanos Alinity i Chemiluminescent Microparticle Immunoassay (CMIA) XR chest 2V (Not yet reviewe d by provider) Interpretation: Performing Lab: Notes/Report: [address] [address] XRay Report Signed Patient: Maria Alejandra Sullivan MR#: [id number] : 1955 Acct:[id number] Age/Sex: 68 / M ADM Date: 04/16/24 Loc: JENNY Attending Dr: Carson Gilmore MD Ordering Physician: Carson Gilmore MD Date of Service: 04/16/24 Procedure(s): XR chest 2V Accession Number(s): [id number] cc: Carson Gilmore MD; Ulices Tang [facility]- EXAMINATION: XR CHEST CLINICAL INFORMATION: ACUTE PNEUMONIA COMPARISON: None available. TECHNIQUE: 2 views of the chest were obtained. FINDINGS: No significant abnormality is noted involving the heart, lungs, mediastinum, bony thorax or soft tissues. XR/XR chest 2V IMPRESSION: Unremarkable chest examination. Electronically signed by: Lucian Arroyo MD 04/16/2024 03:01 PM EST RP Dictated By: Lucian Arroyo MD Signed By: <Electronically signed by Lucian Arroyo MD in OV> 04/16/24 1501 DD/ 1430 TD/TT: 04/16/24 1453 Pattern Cutter: [address] [address] XRay Report Signed Patient: Maria Alejandra Sullivan MR#: [id number] : 1955 Acct:[id number] Age/Sex: 68 / M ADM Date: 04/16/24 Loc: HO.XRAY Attending Dr: Carson Gilmore MD Ordering Physician: Carson Gilmore MD Date of Service: 04/16/24 Procedure(s): XR [address] 2V Accession Number(s): [id number] cc: Carson Gilmore MD; Ulices Tang [facility] EXAMINATION: XR CHEST CLINICAL INFORMATION: ACUTE PNEUMONIA COMPARISON: None available. TECHNIQUE: 2 views of the chest were obtained. FINDINGS: No significant abnormality is noted involving the heart, lungs, mediastinum, bony thorax or soft tissues. XR/XR chest 2V IMPRESSION: Unremarkable chest examination. 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 Encounters Encounter Location Date Provider Diagnosis Carson Gilmore MD [address] [place] [address] Drive [address] [place] [phone] 01/21/2024 Carson Gilmore UTI (urinary tract infection) N39.0 Carson Gilmore MD [address] [place] [phone] 04/16/2024 Carson Gilmore Infection, respiratory J98.8 Carson Gilmore MD [address] [place] [phone] 04/16/2024 Carson Gilmore Acute pneumonia J18.9 Assessments Encounter Date Diagnosis (ICD Code) Assessment Notes Treatment Notes Treatment Clinical Notes Section Notes 04/16/2024 Infection, respiratory (ICD-10 - J98.8) 04/16/2024 Acute pneumonia (ICD-10 - J18.9) 01/21/2024 UTI (urinary tract infection) (ICD-10 - N39.0) Plan Of Treatment Pending Test Test Name Order Date XR CHEST 2 VIEW PA & LAT 04/16/2024 Prostate Specific Antigen Scr 04/16/2024 XR chest 2V 04/16/2024 SARS-CoV2/FLU/RSV 04/16/2024 Insurance Providers Payer Name Payer Address Payer Phone Subscriber Number Group Number Insured Name Patient Relationship to Insured Coverage Start Date Coverage End Date MEDICARE [employer] [address] [place] [address] [id number] MARIA ALEJANDRA SULLIVAN Self - patient is the insured [address] [place] [address] [id number] MARIA ALEJANDRA SULLIVAN Self - patient is the insured
== END 2024-04-16 13:41 | disposition home or self-care (01) ==
LOC: HO.XRAY 13:40
PROVIDERS: Absent Provider Nurse Practitioner Family; PCP Nurse Practitioner Family; Visit Provider Internal Medicine
DX: R97.20 Elevated prostate specific antigen [PSA] (principal); J98.8 Other specified respiratory disorders; J18.9 Pneumonia, unspecified organism; Z12.5 Encounter for screening for malignant neoplasm of prostate
CPT/HCPCS: 0241U; 36415; 71046; 84153

== ENCOUNTER 2024-08-06 09:56 | Outpatient (AMB) | payer MEDICARE, OTHER, SELFPAY ==
[2024-08-06 09:59] VITALS: BP 126/74; PULSE 75; RESP 18; TEMP 36.7; O2SAT 98; BMI 26.1
--- NOTE | 2024-08-06 09:59 | A.OFFPC_ITS ---
Vital Signs 08/06/24 09:59 Height 5 ft 8 in Weight 172 lb BMI 26.1 BP 126/74 Blood Pressure Location Rt brachial Position Sitting Respiration 18 Pulse 75 Pulse Source Pulse Oximeter Temp 98.1 F Temp Source Oral Pulse Oximetry (%) 98 Oxygen Delivery Method Room Air Intake Visit Reasons: 5 months follow up Intake Note: Pt is here today for 5 month follow up visit. Allergies lisinopril [LISINOPRIL] Allergy (Intermediate, Verified 08/06/24 10:32) COUGH metronidazole [Flagyl] Adverse Reaction (Unknown, Verified 08/06/24 10:32) GI Medication List - Last Reconciled 08/06/24 by JENNIFER WardP- cetirizine (Zyrtec) 20 mg PO DAILY PRN donepezil 10 mg PO BEDTIME 90 days meloxicam 15 mg PO DAILY PRN 30 days rosuvastatin 5 mg PO BEDTIME valacyclovir 1,000 mg PO DAILY PRN 90 days Tobacco use date assessed: 08/06/24 Fall risk assessment: No Falls in past year Last assessed Fall Risk: 08/06/24 Dental Screening Dental Screen Date: 08/06/24 Did you have a dental visit in the last 12 months?: Yes Did you have a dental problem in the last 6 months where you did not have access to dental care?: No Was dental information given to patient?: Patient has dentist HPI 5 months follow up HPI Details Chief Complaint The patient presents with concerns of memory loss. History of Present Illness The patient is a 69-year-old male presenting with cognition issues, primarily characterized by memory loss. Previously, the patient consulted with a neuropsychologist in 2021, at which time the importance of using a CPAP machine to aid in his cognitive performance was emphasized. The patient reports regular use of the CPAP device. He continues to experience mild memory loss but, according to his and himself, has not noticed any significant decline in function. Current management includes Aricept at a 5 mg dosage, with the intention to assess the effectiveness and possible adjustment of this treatment to 10 mg for potentially improved outcomes. There are no significant changes or additional symptoms reported at this time. Social History - Presence of spouse during consultation s, possibly indicating a supportive family environment. Health Maintenance - Encouragement for routine laboratory t ests. - Consistent use of CPAP for Obstructive Sleep Apnea management was emphasized. Review of Systems - Neurology: Reports memory loss. - denies any recent cp, sob, fevers, chi lls, n/v, si or hi Physical Exam General: Cooperative, healthy appearing, comfortable, no acute distress and well developed Orientation: Patient oriented x3 Limitations: No limitations Head: Normal to inspection Ears: Hearing grossly normal bilaterally Nose: Normal external nose present Face and sinus: Normal facial exam Eyes: Appearance normal, both eyes and all related structures Neck: Normal visual inspection and Yes full ROM Respiratory: Normal respiratory effort and able to speak in complete sentences. Clear to auscultation bilaterally Cardiovascular: Regular rate and rhythm. Normal S1 and S2 GI: Normal to inspection. Soft to palpation and nontender Skin: No rashes or lesions noted Neuro: Patient oriented x3 Extremities: Normal to inspection Results Plan The management plan for the patient?s cognitive impairment includes increasing the Aricept dosage from 5 mg to 10 mg to potentially enhance cognitive function, with attention to possible side effects. Continued adherence to CPAP therapy is crucial in managing Obstructive Sleep Apnea and its influence on cognition. Additionally, periodic laboratory evaluations are necessary to monitor the patient?s health status and the effectiveness of the treatment regime. As the patient has not shown a significant decline, ongoing monitoring without any immediate aggressive intervention is deemed appropriate. Discussion Notes I discussed with the patient and his spouse the management plan for his cognitive impairment, emphasizing the adjustment of Aricept dosage from 5 mg to 10 mg. We explored the possible benefits of dosage adjustment, such as improved cognitive function. The vital ongoing role of CPAP therapy in managing Obstructive Sleep Apnea and its positive effect on cognitive health was reinforced during our conversation. I emphasized the importance of completing routine laboratory evaluations to provide comprehensive health monitoring. The patient and his spouse were advised on the importance of observing any changes in the patient?s cognitive status and to report any significant changes urgently. Continued follow-up appointments were recommended to assess the effectiveness of the therapeutic interventions. Pt encouraged to keep active at home and society. 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 - Keep using CPAP machine every night as instructed. - Schedule and complete the recommended lab tests soon. - Observe any changes in memory or cogni tive function and report concerns. - Reach out for any unexpected side effe cts or worsening symptoms. 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 Brother Pulmonary fibrosis Sister Leukemia Mental health disorder Sister Lupus Sister Breast cancer Social History Housing: House Alcohol intake: current Alcohol intake frequency: a few times a week Alcohol type: beer Patient Tobacco Use Status: Former Tobacco user Tobacco use type: Cigarette e-Cigarette/Vaping Use: Never Used service: No Current occupational status: retired Current occupational exposures/hazards: No Cognitive needs: No Hearing needs: No Vision needs: No Questionnaire PHQ-9 Over the last 2 weeks, how often have you been bothered by any of the following problems? 1. Little interest or pleasure in doing things: not at all 2. Feeling down, depressed, or hopeless: not at all 3. Trouble falling or staying asleep, or sleeping too much: not at all 4. Feeling tired or having little energy: not at all 5. Poor appetite or overeating: not at all 6. Feeling bad about yourself - or that you are a failure or have let yourself or your family down: not at all 7. Trouble concentrating on things, such as reading the newspaper or watching television: not at all 8. Moving or speaking so slowly that other people could have noticed. Or the opposite - being so fidgety or restless that you have been moving around a lot more than usual: not at all 9. Thoughts that you would be better off or of hurting yourself in some way: not at all Total score: 0 Depression Screening Interpretation: Negative Depression Screening Done: Yes 79355 - PHQ-9 Billing: Yes Source: Developed by Drs. Daron Bae, Che Rodriguez, Tin Sierra and colleagues, with an educational joanna from [employer]. Thrive Questionnaire Date Thrive assessed: 08/06/24 I am a: Patient What is your living situation today?: I have a steady place to live Within the past 12 months, did the food you bought not last and you didn't have the money to get more?: Never true Within the past 12 months, did you worry whether your food would run out before you got money to buy more?: Never true Do you have trouble paying for medicines?: No Do you have trouble getting transportation to medical appointments?: No Do you have trouble paying your heating and electricity bill?: No Do you have trouble taking care of your child, family member or friend?: No Do you have trouble with day-to-day activities such as bathing, preparing meals, shopping, managing finances, etc.?: No Are you currently unemployed and looking for a job?: No Are you interested in more education?: No Please select the resources that you would like help with: None Currently or been in a relationship where the following occur: No concerns reported THRIVE Score: 0 AUDIT C Alcohol Use Questionnaire (AUDIT-C) 1. How often do you have a drink containing alcohol?: 4 or more times a week 2. How many drinks containing alcohol do you have on a typical day when you are drinking?: 1 or 2 3. How often do you have six or more drinks on one occasion?: Never Total Score: 4 BARB-7 AMB Questionnaire BARB-7 Date BARB - 7 assessed: 08/06/24 Feeling nervous, anxious, or on edge: 0 = Not at all Not being able to stop or control worryin = Not at all Worrying too much about different things: 0 = Not at all Trouble relaxin = Not at all Being so restless that it is hard to sit still: 0 = Not at all Becoming easily annoyed or irritable: 0 = Not at all Feeling afraid as if something awful might happen: 0 = Not at all Total BARB-7 score (0-4 normal; 5-9 mild; 10-14 moderate; 15-21 severe): 0 Source: Developed by Drs. Daron Bae, Che Rodriguez, Tin Sierra and colleagues, with an educational joanna from [employer]. BARB-7 Assessment Billing BARB-7 Assessment Tool: BARB-7 Assessment 95928 Physical exam (Primary Care) Vital Signs: Last Vital Signs Temp 98.1 F 08/06/24 09:59 Pulse 75 08/06/24 09:59 Resp 18 08/06/24 09:59 BP 126/74 08/06/24 09:59 Pulse Ox 98 08/06/24 09:59 Oxygen Delivery Method Room Air 08/06/24 09:59 BMI result Body Mass Index 26.1 Tobacco/Smoking Status: Tobacco use Status Tobacco use date assessed 08/06/24 08/06/24 10:06 Patient Tobacco Use Status Former Tobacco user 08/06/24 10:06 Tobacco use type Cigarette 08/06/24 10:06 e-Cigarette/Vaping Use Never Used 08/06/24 10:06 PHQ-9: PHQ-9 Score PHQ-9: Total score 0 08/06/24 10:06 Depression Screening Interpretation: Negative Thrive Assessment: Date of Thrive Assessment Date Thrive assessed 08/06/24 08/06/24 10:06 Currently or been in a relationship where the following occur: No concerns reported Coding Level of Care Code Est Pt Level 3 (32727) Diagnoses Neurocognitive disorder R41.9 Additional Codes BARB-7 Assessment Billing - BARB-7 Assessment Tool: BARB-7 Assessment 70400 ([id number]) PHQ-9 - 69691 - PHQ-9 Billing: Yes ([id number]) Assessment & Plan Assessment & Plan (1) Neurocognitive disorder: Code(s): R41.9 - Unspecified symptoms and signs involving cognitive functions and awareness Category: Medical Plan . Medications: Changed From donepezil 5 mg PO BEDTIME 90 days 90 tabs 1RF To donepezil 10 mg PO BEDTIME 90 days 90 tabs 1RF
--- OUTSIDE RECORDS SUMMARY | 2024-08-06 10:51 | XMS_ITS ---
Author Organization Carson Gilmore MD Address [address] [place] [phone] Care Team Providers Care Monotype Setter Name Role Phone Carson Gilmore Primary Care Provider Results Component Value Reference Range Notes UA ClnCatch+Micro w/rflx Cul t Reviewed date:01/21/2024 04:21:26 PM Interpretation: Performing Lab:[facility], [address] [place] [phone] Notes/Report: Urine, Clean Catch Color Urine Yellow Appearance Urine Turbid PH 6.0 5.0-9.0 Glucose Urine UA Negative Negative mg/dL Urine Blood Moderate (2+) Negative Specific [place] - Urine 1.025 1.005-1.025 Urine Protein 30 [...] Date Provider Diagnosis Carson Gilmore MD [address] [place] [phone] 01/21/2024 Carson Gilmore UTI (urinary tract infection) N39.0 Assessments Encounter Date Diagnosis (ICD Code) Assessment Notes Treatment Notes Treatment Clinical Notes Section Notes 01/21/2024 UTI (urinary tract infection) (ICD-10 - N39.0) Plan Of Treatment No Information Progress Notes * MARIA ALEJANDRA VARGAS KDOB:1955 (69 yo M)Acc No.[id number]:01/21/2024 Progress Note Patient:?MARIA ALEJANDRA VARGAS Provider:?Carson Gilmore MD :1955???Age:68 Y???Sex:Male [place] e:01/21/2024 Address:[address], [facility], [id number] Subjective: * Chief Complaints: * ???1. Ua. [...] Provider:?Carson Gilmore MD Date:?1 Generated for Anselmo torrez/Darrin/eTransmitting on:?08/06/2024 10:51 AM EDT
--- OUTSIDE RECORDS SUMMARY | 2024-08-06 10:51 | XMS_ITS | Patient Health Record ---
Author Organization Carson Gilmore MD Address [address] [place], [place] [phone] Care Team Providers Care Supervisor Wrapping Room Name Role Phone Carson Gilmore Primary Care Provider Results Component Value Reference Range Notes Urine Culture Reviewed date:01/24/2024 11:57:16 AM Interpretation: Performing Lab:[facility], [address] [place] [phone] Notes/Report: O:CITKOS Citrobacter koseri Urine Culture Quant Urine Culture > 100,000 cfu/mL Cefazolin 4 Cefepime <=0.12 Ceftriaxone <=0.25 Ciprofloxacin <=0.06 Gentamicin <=1 Nitrofurantoin 32 Trimethoprim/Sulfamethox azole <=20 UA ClnCatch+Micro w/rflx Cul t Reviewed date:01/21/2024 04:21:26 PM Interpretation: Performing Lab:[facility], [address] [place] [phone] Notes/Report: Urine, Clean Catch Color Urine Yellow Appearance Urine Turbid PH 6.0 5.0-9.0 Glucose Urine UA Negative Negative mg/dL Urine Blood Moderate (2+) Negative Specific [place] - Urine 1.025 1.005-1.025 Urine Protein 30 (1+) Neg-Trace mg/dL Urine Ketones Trace Negative mg/dL Nitrite Urine Positive Negative Leukocyte Esterase Urine Moderate (2+) Negative RBC Urine 3-5 0-2 /HPF WBC Urine >50 0-5 /HPF Squamous Epithelial Cell Urine 3-5 0-2 /HPF Bacteria Urine 4+ None Seen Hyaline Casts Urine 0-2 0-2 /LPF SARS-CoV2/FLU/RSV Reviewed date:04/16/2024 05:34:01 PM Interpretation: Performing Lab:[address] [phone] Notes/Report: Influenza A PCR NEGATIVE Negative Influenza [...] by authorized laboratories. Testing performed on the [employer] GeneXpert utilizing real-time RT-PCR. All SARS CoV2 and positive influenza A/B results are reported to [facility]. Prostate Specific Antigen Sc r Reviewed date:04/16/2024 05:32:40 PM Interpretation: Performing Lab:[address] [phone] Notes/Report: Prostate Specific Antigen Scr 0.39 <0.05-4.0 ng/mL PSA methodology: [employer] Alinity i Chemiluminescent Microparticle Immunoassay (CMIA) XR chest 2V Reviewed date:04/16/2024 05:33:41 PM Interpretation: Performing Lab: Notes/Report: [address] [address] XRay Report Signed Patient: Maria Alejandra Sullivan MR#: [id number] : 1955 Acct:[id number] Age/Sex: 68 / M ADM Date: 04/16/24 Loc: JENNY Attending Dr: Crason Gilmore MD Ordering Physician: Casron Gilmore MD Date of Service: 04/16/24 Procedure(s): XR chest 2V Accession Number(s): [id number] cc: Carson Gilmore MD; Ulices Tang [facility]- EXAMINATION: XR CHEST CLINICAL INFORMATION: ACUTE PNEUMONIA [...] 04/16/24 1501 DD/ 1430 TD/TT: 04/16/24 1453 Electrolysis Investigator: [place] [address] XRay Report Signed Patient: Maria Alejandra Sullivan MR#: [id number] : 1955 Acct:[id number] Age/Sex: 68 / M ADM Date: 04/16/24 Loc: HO.DANEAY Attending Dr: Carson Gilmore MD Ordering Physician: Carson Gilmore MD Date of Service: 04/16/24 Procedure(s): XR [address] 2V Accession Number(s): [id number] cc: Carson Gilmore MD; Ulices Tang [facility] EXAMINATION: XR CHEST CLINICAL INFORMATION: ACUTE PNEUMONIA [...] 04/16/24 1501 DD/ 1430 TD/TT: 04/16/24 1453 Electrolysis Investigator: [facility] [place] For Referral No Information Medications Medication [...] Problem Status W/U Status Risk Notes Problem [id number] 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, 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 Encounters Encounter Location Date Provider Diagnosis Carson Gilmore MD [address] [place] [phone] 01/21/2024 Carson Gilmore UTI (urinary tract infection) N39.0 Carson Gilmore MD [address] [place] [phone] 04/16/2024 Carson Gilmore Infection, respiratory J98.8 Carson Gilmore MD [address] [place] [phone] 04/16/2024 Carson Gilmore Acute pneumonia J18.9 Assessments Encounter Date Diagnosis (ICD Code) Assessment Notes Treatment Notes Treatment Clinical Notes Section Notes 04/16/2024 Infection, respiratory (ICD-10 - J98.8) 04/16/2024 Acute pneumonia (ICD-10 - J18.9) 01/21/2024 UTI (urinary tract infection) (ICD-10 - N39.0) Plan Of Treatment Pending Test Test Name Order Date XR CHEST 2 VIEW PA & LAT 04/16/2024 Insurance Providers Payer Name Payer Address Payer Phone Subscriber Number Group Number Insured Name Patient Relationship to Insured Coverage Start Date Coverage End Date MEDICARE NHIC [employer] [address] [place] [address] [id number] MARIA ALEJANDRA SULLIVAN Self - patient is the insured [address] [place] [phone] [id number] MARIA ALEJANDRA SULLIVAN Self - patient is the insured
--- OUTSIDE RECORDS SUMMARY | 2024-08-06 10:52 | XMS_ITS | Data Portability ---
Author Organization [place] - [facility], Allergy Address [address] [address] Assessment Encounter Date Assessment Date Assessment LastModified [...] were discussed. We discussed the risk of intermediate perforation following tube extrusion, with possible need [...] cancer reoccurance. Patient plans to go to [place] for 2 months. He is scheduled for [...] tissue, w/ contrast 2024 025 [email or web address] [facility], [address] [place], [address], 04/08/2024 16:37:06 Medication Orders ofloxacin 0.3 % ear drops 2023 024 [facility] #[id number], [address] [place], [address], 01/24/2024 10:10:49 Patient TargetsNo targets recorded. Patient InstructionsNo instructions recorded. Reason for Referral None Reported. Results Created Date Observation Date Name Description Value Unit Range Abnormal Flag Note LastModifiedBy Organization Detail LastModifiedTime 10/10/19 24 audio gram No observ ation record ed. [email or web address] Not Available 09/22 14:07:58 11/12/19 24 08/07/2022 [...] record ed. BARCODE Not Available 2023 14:43:29 04/29/19 25 04/20/2024 CT, neck, soft tissu e, w/ contr ast No observ ation record ed. [email or web address] Not Available 10:35:11 05/01/19 25 04/18/2023 PET, limit ed No observ ation record ed. [email or web address] Not Available 09/2024 10:45:35 05/01/19 25 04/28/2024 CT, neck, soft tissu e, w/ contr ast No observ ation record ed. [email or web address] Not Available 09/2024 10:59:22 05/18/19 25 05/18/2024 PET-C T, whole body scan [place] PET/CT Imagin g Access ion Number : [id number] Jur[address] anthony Name: Adair Sullivan Record Number : [id number] Date of : 1955 Date of Exam: 2024 Referr ing Physic noy: Beverley diop, Jesus Manuel Shah ns of [facility] [place] [address] [facility] [address] [facility] [place] [address] Exam: PT Whole Body CPT 77862 Room Descri ption: [facility] o Pt4 Positr on emissi on tomogr aphy and CT dated 2024. Compar mckinley films are from 2017. Correl ation is made with a soft tissue CT of the head and neck dated 2024. HISTOR Y: Restag ing of head and neck carcin alondra. Jurgen anthony has a histor y of prior neopla sm. Recent neck CT did show some increa sed soft tissue in the left pirifo rm sinus extend ing to the aryepi glotti c fold. PET techni que: Today' s study was perfor med with the intrav enous infusi on of 12.7 mCi of F-18-F DG. Imagin g was perfor med 1 hour, 0 minute s, and 1 second s follow ing the infusi on. Body mass was used to normal ize the SUV. The blood glucos e at the time of the inject ion was 78 mg/dL. Uptake in the liver has a peak SUV of 2.8 and uptake in the ascend ing aorta has a peak SUV of 2.0. Imagin g was perfor med from the base of the brain to the mid thighs with axial, robert l, sagitt al, and 3-D recons tructi on perfor med on an indepe ndent workst ation. FINDIN GS: There is increa sed metabo lic activi ty in the left maxill hao sinus which is associ ated with soft tissue thicke darya. The peak SUV is 5.5 on image #32. There is a 1.5 cm low left paratr acheal lymph node with a peak SUV of 4.5 on image #73. There is a 0.7 cm low right paratr acheal lymph node with a peak SUV of 2.1 on image #72. There are 5 to 7 mm left axilla ry lymph nodes with peak SUVs up to 2.8 on image #73. There is a focus of increa sed metabo lic activi ty in the distal esopha radha withou t a CT correl ate. This has a peak SUV of 4.8 on image #103. There is a 1.3 cm left inguin al lymph node with a peak SUV of 2.6 on image #161. There is a 0.8 cm right inguin al lymph node with a peak SUV of 3.8 on image #110 The increa sed soft tissue in the left pirifo rm sinus and aryepi glotti c folds shows no eviden ce of abnorm al metabo lic activi ty. IMPRES SHANTELL: No abnorm al increa sed metabo lic activi ty in the pirifo rm sinus and aryepi glotti c fold region . Increa sed metabo lic activi ty in paratr acheal lymph nodes and axilla ry lymph nodes of uncert ain etiolo gy. The differ ential diagno sis would includ e infect ious or inflam matory etiolo gies as well as neopla sm. Inguin al lymph nodes also could repres ent inflam mation or infect ion howeve r neopla sm cannot be exclud ed. Increa sed uptake in the left maxill hao sinus is consis tent with infect ion or inflam mation . Examin ation [id number]. Thank you for allowi ng me to partic ipate in the care of your patien t. Paulina onical ly Signed By: Leno benjamin [facility] ([facility]) [address], [place], [address], 05/20/2024 13:05:40 Result Notes None recorded. Problems Name Problem SNOMED Code Status Onset Date Resolution Date Notes Provider Name and Address Organization Details Recorded Time Taste sense altered 119503987 Active 2018 Parageusi a; Note: Date Diagnosed : 05/07/2018 3:32 PM (R43.2) Not Available [facility] 4 02:40:44 Neck pain 37226814 Active 2021 Cervicalg ia; Note: Date Diagnosed : 10/03/2021 11:24 AM (M54.2) Not Available [facility] 4 02:40:47 History of malignant neoplasm of oral cavity 185039146 Active 2017 Personal history of malignant neoplasm of other sites of lip, oral cavity, and pharynx; Note: Date Diagnosed : 8 2:48 PM (Z85.818) Not Available [facility] 4 02:40:39 General unsteadin ess 576698121 Active 2018 Unsteadin ess on feet; Note: Date Diagnosed : 11/18/2018 11:18 AM (R26.81) Not Available [facility] 4 02:40:42 Disorder of smell 398918629 Active 2018 Other disturban irene of smell and taste; Note: Date Diagnosed : 11/18/2018 11:12 AM (R43.8) Not Available [facility] 4 02:40:48 Disorder of taste 453288406 Active 2018 Other disturban irene of smell and taste; Note: Date Diagnosed : 11/18/2018 11:12 AM (R43.8) Not Available [facility] 4 02:40:48 Impacted cerumen in left ear 96295787786 40602 Active 2016 Impacted cerumen, left ear; Note: Date Diagnosed : 08/15/2016 9:37 AM (H61.22) Not Available [facility] 4 02:40:46 Xerostomi a 36268792 Active 2018 Dry mouth, unspecifi ed; Note: Date Diagnosed : 05/07/2018 3:32 PM (R68.2) Not Available [facility] 4 02:40:50 Dizziness and giddiness 138910525 Active 2018 Dizziness and giddiness ; Note: Date Diagnosed : 9 11:50 AM (R42) Not Available [facility] 4 02:40:45 Nasal congestio n 21547551 Active 2018 Nasal congestio n; Note: Date Diagnosed : 05/07/2018 3:32 PM (R09.81) Not Available [facility] 4 02:40:44 Follow-up visit Active 2019 Encounter for follow-up examinati on after completed treatment for malignant neoplasm; Note: Date Diagnosed : 09/09/2019 2:33 PM (Z08) Medical surveilla nce following completed treatment ; Note: Date Diagnosed : 8 11:54 AM (Z09) ; Start Date : 8 Not Available [facility] 4 02:40:46 Mass of neck 451833438 Active 2016 Localized swelling, mass and lump, neck; Note: Date Diagnosed : 08/15/2016 9:37 AM (R22.1) Not Available [facility] 4 02:40:49 Neck swelling 211776298 Active 2016 Localized swelling, mass and lump, neck; Note: Date Diagnosed : 08/15/2016 9:37 AM (R22.1) Not Available [facility] 4 02:40:50 Sensorine ural hearing loss of bilateral ears 849512119 Active 2018 Sensorine ural hearing loss, bilateral ; Note: Date Diagnosed : 9 11:12 AM (H90.3) Not Available [facility] 4 02:40:42 Dysphagia 00250162 Active 2018 Dysphagia , unspecifi ed; Note: Date Diagnosed : 9 11:55 AM (R13.10) Not Available [facility] 4 02:40:49 Recurrent aphthous stomatiti s 903868097 Active 2018 Aphthous stomatiti s (major) (minor); Note: Date Diagnosed : 08/12/2018 11:08 AM (K12.0) Not Available [facility] 4 02:40:48 Dysphonia 40868981 Active 2018 Hoarsenes s; Note: Date Diagnosed : 9 11:58 AM (R49.0) Not Available [facility] 4 02:40:44 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 15957875 Active 2016 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, face and neck; Note: Date Diagnosed : 08/31/2016 2:41 PM (C77.0) Not Available [facility] 4 02:40:38 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23) Not Available [facility] 4 02:40:39 Chronic pansinusi tis 33720106 Active 2022 Chronic pansinusi tis; Note: Date Diagnosed : 08/23/2022 5:22 PM (J32.4) Not Available [facility] 4 02:40:45 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); Note: Date Diagnosed : 09/20/2017 4:21 PM (M27.2) Not Available [facility] 4 02:40:47 Primary malignant neoplasm of unknown site 111440180 Active 2023 JESUS MANUEL AZEVEDO MD [address] [place], [place] [address]k[place], [address] , [place] - [facility] 4 14:44:49 Tinnitus of left ear 64969197554 06 Active 2023 JESUS MANUEL AZEVEDO MD [address] [facility] [address], [place], [address] , [place] [facility] 4 14:47:04 Disorder of left Eustachia n tube 28212242205 14895 Active 2023 Siria MCCURDY [address] [facility] [place] [address], [place], [address] , [place] - [facility] 4 09:28:47 Feeling of lump in throat 776213039 Active 2024 ARIANA VAN PA-C [address] [facility],[place] [address], [place], [address] , [place] [facility] 5 16:26:15 Malignant tumor of unknown origin 717283654 Active 2024 JESUS MANUEL AZEVEDO MD [address] [facility],[place] [address], [place], [address] , [place] [facility] 5 16:33:41 Problem Notes None recorded. Procedures Surgical History Date Name Laterality Status Provider Name and Address Organization Details Recorded Time 07/17/19 25 FOL_DP completed JESUS MANUEL AZEVEDO MD [address] [facility],[address], [address], [place] - [facility] 07/16/2024 08:57:17 04/08/19 25 Cerumen removal with microscope left completed ARIANA VAN PA-C [address] [facility],[address], [address], [place] [facility] 04/08/2024 16:39:45 04/08/19 25 FOL_DP completed ARIANA VAN PA-C [address] [facility],[address], [address], [place] [facility] 04/08/2024 16:25:13 01/24/20 24 Myringotomy w/Placement of Tube left completed IVETH LARSON PA-C [address] [facility],[place] [address], [place], [address], [place] [facility] 01/24/2024 13:01:59 01/24/20 24 FOL_DP completed IVETH LARSON PA-C [address] [facility],[address], [place], [address], [place] [facility] 01/24/2024 13:01:41 01/24/20 24 Tympanometry - 34090 completed HARSHA BIGGS, AuD [address] [facility],[address], [address], [place] [facility] 01/24/2024 09:28:13 10/09/19 24 Air & Speech Audio with Tymps - 04629, 51855 & 49672 completed AMAN CLEMENTS, AUD [address] [facility],[place] [address], [place], [address], [place] [facility] 10/09/2023 15:21:02 10/09/19 24 FFL_RE completed JESUS MANUEL AZEVEDO MD [address] [facility],[address], [address], [place] [facility] 10/09/2023 14:57:24 Imaging Results Imaging Date Name Status LastModified by [facility] Details LastModified Time 10/10/2023 audiogram completed [email or web address] Information n ot available 10/10/2023 14:07:58 08/07/2022 [...] BARCODE Information no t available 01/24/2024 14:43:29 04/20/2024 CT, neck, soft tissue, w/ contrast completed [email or web address] Information not available 06/10/2024 10:35:11 04/18/2023 PET, limited completed Information not available 05/01/2024 10:45:35 04/28/2024 CT, neck, soft tissue, w/ contrast completed [email or web address] Information not available 05/01/2024 10:59:22 05/18/2024 PET-CT, whole body scan completed cassidy [facility] ([facility]) [address] [place], [address], 05/20/2024 13:05:40 Procedure Notes None recorded. Medical Equipment None Reported. Allergies Allergen ID Allergen Name Allergen Category Reaction Reaction Severity Criticality Documentation Date Start Date Code Code System Note Provider Name and Address Organization Details Recorded Time 054193 metronida zole medicatio n other Not available Not available 08/06/2023 6922 RxNorm React ion: unkno wn, unspe cifie d;; Not Available [facility] 4 01:08:47 829523 lisinopri l medicatio n other Not available Not available 08/06/2023 55358 RxNorm React ion: unkno wn, unspe cifie d;; Not Available [facility] 4 01:08:49 244798 codeine sulfate medicatio n other Not available Not available 08/06/2023 35658 RxNorm React ion: unkno wn, unspe cifie d;; Not Available [facility] 01:08:51 Medications Name Sig Start Date Stop Date Status Note LastModified by Organization Details LastModified Time amoxicill in 500 mg capsule TAKE 4 CAPSULES BY MOUTH 1 PRIOR TO DENTAL APPOINTM ENT 01/23 completed Not Available Not Available Not Available prednison e 10 mg tablet 01/23 completed Medicati on ID: [id number] P shanterimonalisa d By Name: Jesus Manuel escamilla MD [...] mg tablet TAKE 1 TABLET BY MOUTH EVERYDAY AT BEDTIME active Not Available Not Available [...] Not Available prednison e 20 mg tablet TAKE 2 TABLETS BY MOUTH DAILY FOR 6 DAYS active Not Available Not Available No t Available simvastat in 10 mg tablet 01/23 completed Medicati on ID: 396661 D uration Value: 30 Brand Name: simvasta tin Send Method: E-Prescr ibed Sub s Allowed: subs OK Medic ationGen ericName : simvasta tin Not Available Not Available Not Available amlodipin e 5 mg tablet 2016 active Medicati on ID: 150446 D uration Value: 30 Brand Name: ann marie mckeon Send Method: E-Prescr ibed Sub s Allowed: [...] small amount 2018 active Medicati on ID: 314102 D uration Value: 14 Prescri bed By [...] completed Not Available Not Available Not Available benzonata te 100 mg capsule TAKE 1 CAPSULE BY MOUTH 2 TIMES A DAY NEEDED FOR COUGH FOR 10 DAYS active Not Available Not Available No t Available cephalexi n 500 mg capsule TAKE [...] mg tablet 2016 active Medicati on ID: 027243 D uration Value: 90 Brand Name: valsarta [...] mg capsule 2016 active Medicati on ID: 970785 D uration Value: 30 Brand Name: gabapent in Send Method: E-Prescr ibed Sub s Allowed: subs OK Speci al Instruct ion: TAKE ONE CAPSULE BY MOUTH 3 TIMES A DAY Medi cationGe nericNam e: gabapent in Not Available Not Available Not Available zolpidem 5 mg tablet 2017 active Medicati on ID: 476659 D uration Value: 15 Brand Name: zolpidem [...] extended release 2016 active Medicati on ID: 877055 D uration Value: 90 Brand Name: Coreg CR Send Method: E-Prescr ibed Sub s Allowed: subs OK Speci al Instruct ion: TAKE 1 CAPSULE BY MOUTH ONCE A DAY Medi cationGe nericNam e: Coreg CR Not Available Not Available Not Available Flonase Allergy Relief 50 mcg/actua tion nasal spray,neto pension 2 puff into both nostrils 2018 active Medicati on ID: [id number] D uration Value: 120 Prescri bed By Name: Jesus Manuel escamilla MD Brand Name: Flonase Allergy Relief S end Method: E-Prescr ibed Sub s Allowed: subs OK Medic ationGen ericName : Flonase Allergy Relief Not Available Not Available Not Available Vitals Date Recorded Body height Body mass index (BMI) Body weight Provider Name and Address Organization Details Last Updated DateTime 07/16/2024 175.26 cm 24.4 kg/m2 66917.74 g Cynthia Pink [facility] 07/16/2024 08:34:32 Date Recorded Body height Body mass index (BMI) Body weight Provider Name and Address Organization Details Last Updated DateTime 10/09/2023 175.26 cm 24.4 kg/m2 87988.74 g Cynthia Pink [facility] 10/09/2023 14:38:25 Date Recorded Body height Body mass index (BMI) Body weight Provider Name and Address Organization Details Last Updated DateTime 01/24/2024 175.26 cm 24.4 kg/m2 04138.74 g Gayatri Trevino [facility] 01/24/2024 08:42:37 Social History None recorded. Functional Status None recorded. Mental Status None recorded. Family History Nothing Reported. Medical History Condition Response Cancer Y Hypertension Y High Cholesterol Y Past Encounters Encounter ID Performer Location Encounter Start Date Encounter Closed Date Diagnosis/Indication Diagnosis SNOMED-CT Code Diagnosis ICD10 Code Diagnosis Note [id number] JESUS MANUEL AZEVEDO MD [facility] [address] [address] 10/09/2023 14:15:21 10/09/2023 15:54:54 Primary malignant neoplasm of unknown site 745594925 C80.1 She snores and has hypersomno lence. I recommend a PSG to assess for DENNISE. If negative I recommend observatio n. Screening for malignant neoplasm of respiratory tract 718637123 Z12.2 Exam and Laryngosco py showed no evidence of disease. We will continue routine surveillan ce. Follow up 1 year. Tinnitus of left ear 902 0026694 106 H93.12 We obtained an audio to better assess. Audio showed SNHL AU fairly similar to audio from 08/14. Word understand ing slightly worse . I think his blocked ear is due to ETD. I discussed autoinsuff lation. F/u in 1 year with a HTF. 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 [id number] SIRIA HAWKINS [facility] [address] [address] 10/09/2023 15:18:57 10/10/2023 17:14:54 Sensorineural hearing loss of bilateral ears 326565321 H90.3 Audiologic al evaluation results: Right ear: [...] Cou ld not maintain a hermetic seal}} [id number] JESUS MANUEL AZEVEDO MD [facility] on [address] [place] [address] 01/24/2024 08:40:28 01/24/2024 10:09:48 Disorder of left Eustachian tube 8801290909 106244 H69.92 Tympanomet ry:Right Ear:{{Type A* Type As [...] History of malignant neoplasm of oral cavity 428162322 Z85.819 [id number] JESUS MANUEL AZEVEDO MD [facility] [address] [facility], [place] [address] 04/08/2024 15:00:10 04/08/2024 16:37:06 Disorder of left Eustachian tube 9497735312 974583 H69.92 Feeling of lump in throat 444133300 R09.89 History of malignant neoplasm of oral cavity 850351489 Z85.819 Impacted c erumen in left ear 5397186113 713290 H61.22 [id number] JESUS MANUEL AZEVEDO MD [facility] [address] [facility], [place] [address] 07/16/2024 08:32:17 07/16/2024 08:58:03 Disorder of left Eustachian tube 1297207998 102319 H69.92 Tube is patent on exam. Follow up per routine for recheck. Dysphagia 41748218 R13.1 0 Stable. I recommend he proceed with his dilation in September as scheduled. History of malignant neoplasm of oral cavity 924072073 Z85.818 Exam and Laryngosco py showed no evidence of disease. We will continue routine surveillan ce. I reviewed all of his imaging including his 2 prior PET scans and his prior CT scan. He has plans with his oncologist to have a bronchosco py to biopsy the paratrache al nodes seen on the most recent PET scan in April. I agree that this is a good plan. I do not see any evidence of recurrence in the head or neck area based on my exam today and imaging and I gave reassuranc e. I will plan to recheck him in 6 months. Screening for malignant neoplasm of respiratory tract 756095889 Z12.2 Exam and Laryngosco py showed no evidence of disease. We will continue routine surveillan ce. Follow up 6 months. Health Concerns Section Related Observation LastModified by Organization Detai ls LastModified Time None Recorded Concern Status LastModified by Organization Details LastModified Time None Recorded Advance Directives Directive None Recorded Payers Insurance Date Sequence Insurance Name Policy Number Policy Gutierrez Covered Member ID Gutierrez Member ID Guarantor Name 07/21/2024 1 [facility] - PLAN 1 (MEDICARE SUPPLEMENT) [id number] 1 Adair Davisy [id number] Adair Sullivan 08/04/2024 2 [facility] [id number] 1 Adair Davisy [id number] Adair Sullivan 08/04/2024 2 [facility] 1 (MEDICARE SUPPLEMENT) [id number] 1 Adair Davisy [id number] Adair Davisy 08/04/2024 1 MEDICARE B-[place]: [facility] [employer] Adair Sullivan [id number] Adair Sullivan 07/16/2024 1 [facility] 1 (MEDICARE SUPPLEMENT) [id number] Adair Davisy [id number] Adair Sullivan Notes Date Note Type Note Provider Name and Address Organization Details Recorded Time 10/09/2023 text/html cancer surveilla [facility] Mr. Sullivan is a 68 year old [...] seemed to help. JESUS MANUEL AZEVEDO MD [address] [place] [address], [phone], [facility] 10/09/2023 15:55:45 01/24/2024 text/html 68 year old [...] some memory issues. JESUS MANUEL AZEVEDO MD [address] [place] [address], [address], [facility] - [facility] 01/27/2024 12:23:23 04/08/2024 text/html 68yo male with [...] or dysphonia. Patient plans to go to [place] for 2 months. He is scheduled for esophageal dilation with GI in July. JESUS MANUEL AZEVEDO MD [address] [facility],[address], [address], [place] [facility] 04/09/2024 08:44:55 07/16/2024 text/html cancer surveillanceMr. Sullivan is a 69 year old male who presents for routine cancer surveillance. 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 PET scan obtained in April 2017 revealed no evidence of recurrent disease. Since the last visit he has had several imaging studies. In March 2023 he had a PET/CT which did not show any local or distant metastases. He had a CT of the neck with contrast on April 28 which showed interval change in the piriform sinus as well as some borderline cervical enlarged lymph nodes. This was followed up with a repeat PET scan on May 18 which did not have any uptake in the area of the piriform sinus. It did show some mild uptake in the paratracheal and axillary nodes. He presents for additional surveillance. He has a tube in his left ear. Denies any current ear problems. He has an esophageal dilation pending in September. He does choke occasionally but he says in general his swallowing hasn't changed. JESUS MANUEL AZEVEDO MD [address] [facility],[address], [place], [address], [place] [facility] 07/16/2024 08:59:49
--- OUTSIDE RECORDS SUMMARY | 2024-08-06 10:52 | XMS_ITS ---
Author Organization Carson Gilmore MD Address [address] [place] [phone] Care Team Providers Care Hospital Mortician Name Role Phone Carson Gilmore Primary Care Provider Results Component Value Reference Range Notes SARS-CoV2/FLU/RSV Reviewed date:04/16/2024 05:34:01 PM Interpretation: Performing Lab:[facility], [address] [place] [phone] Notes/Report: Influenza A PCR NEGATIVE Negative Influenza [...] by authorized laboratories. Testing performed on the [employer] GeneXpert utilizing real-time RT-PCR. All SARS CoV2 and positive influenza A/B results are reported to [facility]. Encounters Encounter Location Date Provider Diagnosis Carson Gilmore MD [address] [place] [phone] 04/16/2024 Carson Gilmore Infection, respiratory J98.8 Assessments Encounter Date Diagnosis (ICD Code) Assessment Notes Treatment Notes Treatment Clinical Notes Section Notes 04/16/2024 Infection, respiratory (ICD-10 - J98.8) Plan Of Treatment No Information Progress Notes * MARIA ALEJANDRA VARGAS KDOB:1955 (68 yo M)Acc No.[id number]:04/16/2024 Patient:?MARIA ALEJANDRA VARGAS K :1955???Age:68 Y???Sex:Male Address: [address], [place], [address] Subjective: * Chief Complaints: * ??? * Medical History:? * Surgical History:? * Hospitalization/Major Diagno stic Procedure:? * Medications:? Objective: * Vitals:? * Physical Examination:? Assessment: * Assessment: 1.?Infection, respiratory - J98.8 (Primary)??? Plan: * Treatment: * Procedure Codes:? * true * Date:? Generated for Anselmo torrez/Darrin/eTransmitting on:?08/06/2024 10:51 AM EDT
--- OUTSIDE RECORDS SUMMARY | 2024-08-06 10:52 | XMS_ITS ---
Author Organization Carson Gilmore MD Address [address] [place] [phone] Care Team Providers Care Optimization Consultant Name Role Phone Carson Gilmore Primary Care Provider Encounters Encounter Location Date Provider Diagnosis Carson Gilmore MD [address] [place] [phone] 04/16/2024 Carson Gilmore Acute pneumonia J18.9 Assessments Encounter Date Diagnosis (ICD Code) Assessment Notes Treatment Notes Treatment Clinical Notes Section Notes 04/16/2024 Acute pneumonia (ICD-10 - J18.9) Plan Of Treatment Pending Test Test Name Order Date XR CHEST 2 VIEW PA & LAT 04/16/2024 Progress Notes * MARIA ALEJANDRA VARGAS KDOB:1955 (68 yo M)Acc No.[id number]:04/16/2024 Patient:?MARIA ALEJANDRA VARGAS :1955???Age:68 Y???Sex:Male Address:[address] [place], [address] Subjective: * Chief Complaints: * ??? * Medical History:? * Surgical History:? * Hospitalization/Major Diagno stic Procedure:? * Medications:? Objective: * Vitals:? * Physical Examination:? Assessment: * Assessment: 1.?Acute pneumonia - J18.9 ( Primary)??? Plan: * Treatment: * Procedure Codes:? * true * Date:? Generated for Printi ng/Faelizabethg/eTransmitting on:?08/06/2024 10:51 AM EDT
== END 2024-08-06 10:50 | disposition home or self-care (01) ==
LOC: HO.HMCC 09:57
PROVIDERS: PCP Nurse Practitioner Family; Visit Provider Nurse Practitioner Family
DX: R41.9 Unspecified symptoms and signs involving cognitive functions and awareness (principal)

== ENCOUNTER → 2024-08-06 09:56 | Outpatient (BNVA) | payer MEDICARE, OTHER, SELFPAY | PROVIDERS: PCP Nurse Practitioner Family; Visit Provider Nurse Practitioner Family | DX: R41.9 Unspecified symptoms and signs involving cognitive functions and awareness (principal) | CPT/HCPCS: 96127; 99212 ==

== ENCOUNTER 2024-08-26 08:07 | Outpatient (REF) | payer MEDICARE, OTHER, SELFPAY ==
--- OUTSIDE RECORDS SUMMARY | 2024-08-26 08:11 | XMS_ITS | Patient Health Record ---
Author Organization Carson Gilmore MD Address [address] [place], [place] [phone] Care Team Providers Care Construction Project Coordinator Name Role Phone Carson Gilmore Primary Care Provider [phone] Results Component Value Reference Range Notes Urine Culture Reviewed date:01/24/2024 11:57:16 AM Interpretation: Performing Lab:[facility], [address] [place] [phone] Notes/Report: O:CITKOS Citrobacter koseri Urine Culture Quant Urine Culture > 100,000 cfu/mL Cefazolin 4 Cefepime <=0.12 Ceftriaxone <=0.25 Ciprofloxacin <=0.06 Gentamicin <=1 Nitrofurantoin 32 Trimethoprim/Sulfamethox azole <=20 UA ClnCatch+Micro w/rflx Cul t Reviewed date:01/21/2024 04:21:26 PM Interpretation: Performing Lab:[facility], [address] [place] [phone] Notes/Report: Urine, Clean Catch Color Urine Yellow Appearance Urine Turbid PH 6.0 5.0-9.0 Glucose Urine UA Negative Negative mg/dL Urine Blood Moderate (2+) Negative Specific [place] - Urine 1.025 1.005-1.025 Urine Protein 30 (1+) Neg-Trace mg/dL Urine Ketones Trace Negative mg/dL Nitrite Urine Positive Negative Leukocyte Esterase Urine Moderate (2+) Negative RBC Urine 3-5 0-2 /HPF WBC Urine >50 0-5 /HPF Squamous Epithelial Cell Urine 3-5 0-2 /HPF Bacteria Urine 4+ None Seen Hyaline Casts Urine 0-2 0-2 /LPF SARS-CoV2/FLU/RSV Reviewed date:04/16/2024 05:34:01 PM Interpretation: Performing Lab:[address] [phone] Notes/Report: Influenza A PCR NEGATIVE Negative Influenza [...] by authorized laboratories. Testing performed on the [employer] GeneXpert utilizing real-time RT-PCR. All SARS CoV2 and positive influenza A/B results are reported to [facility]. Prostate Specific Antigen Sc r Reviewed date:04/16/2024 05:32:40 PM Interpretation: Performing Lab:[address] [phone] Notes/Report: Prostate Specific Antigen Scr 0.39 <0.05-4.0 ng/mL PSA methodology: [employer] Al[employer] i Chemiluminescent Microparticle Immunoassay (CMIA) XR chest 2V Reviewed date:04/16/2024 05:33:41 PM Interpretation: Performing Lab: Notes/Report: [address] [address] XRay Report Signed Patient: Maria Alejandra Sullivan MR#: [id number] : 1955 Acct:[id number] Age/Sex: 68 / M ADM Date: 04/16/24 Loc: JENNY Attending Dr: Carson Gilmore MD Ordering Physician: Carson Gilmore MD Date of Service: 04/16/24 Procedure(s): XR chest 2V Accession Number(s): [id number] cc: Carson Gilmore MD; Ulices Tang [facility]- EXAMINATION: XR CHEST CLINICAL INFORMATION: ACUTE PNEUMONIA [...] 04/16/24 1501 DD/ 1430 TD/TT: 04/16/24 1453 Tier Truck Driver: [place] [address] XRay Report Signed Patient: Maria Alejandra Sullivan MR#: [id number] : 1955 Acct:[id number] Age/Sex: 68 / M ADM Date: 04/16/24 Loc: HO.DANEAY Attending Dr: Carson Gilmore MD Ordering Physician: Carson Gilmore MD Date of Service: 04/16/24 Procedure(s): XR [address] st 2V Accession Number(s): [id number] cc: Carson Gilmore MD; Ulices Tang [facility] EXAMINATION: XR CHEST CLINICAL INFORMATION: ACUTE PNEUMONIA COMPARISON: None available. TECHNIQUE: 2 views of the chest were obtained. FINDINGS: No significant abnormality is noted involving the heart, lungs, mediastinum, bony thorax or soft tissues. XR/XR chest 2V IMPRESSION: Unremarkable chest examination. 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 Encounters Encounter Location Date Provider Diagnosis Carson Gilmore MD [address] [place] [phone] 01/21/2024 Carson Gilmore UTI (urinary tract infection) N39.0 Carson Gilmore MD [address] [place] [phone] 04/16/2024 Carson Gilmore Infection, respiratory J98.8 Carson Gilmore MD [address] [place] [phone] 04/16/2024 Carson Gilmore Acute pneumonia J18.9 Assessments [...] Coverage End Date MEDICARE [address] [place] [address] [id number] MARIA ALEJANDRA SULLIVAN Self - patient is the insured [address] [place] [phone] [id number] MARIA ALEJANDRA SULLIVAN Self - patient is the insured
[2024-08-26 11:12] LABS: MANUAL DIFF FLAG NO
[2024-08-26 11:16] LABS: Appearance Urine Turbid; Color Urine Yellow; Glucose Urine UA Negative (Negative); Leukocyte Esterase Urine Negative (Negative); Nitrite Urine Negative (Negative); Specific Gravity - Urine >= 1.030 (1.005-1.025); UMIC TRIGGER UACC YES; Urine Blood Trace (Negative); Urine Ketones Trace mg/dL (Negative); Urine Protein Trace mg/dL (Neg-Trace)
[2024-08-26 11:20] LABS: Bacteria Urine None Seen (None Seen); Hyaline Casts Urine 0-2 /LPF (0-2); WBC Urine 0-5 /HPF (0-5)
[2024-08-26 11:37] LABS: Basophils Absolute Auto 0.1 X10*3/uL (0.0-0.2); Basophils Percent Auto 1.2 % (0-2); Eosinophils Absolute Auto 0.6 X10*3/uL (0.0-0.4); Eosinophils Percent Auto 11.2 % (0-4); Hematocrit 44.4 % (42.0-52.0); Hemoglobin 14.8 g/dl (14.0-18.0); Imm Gran Abs Auto 0.03 X10*3/uL (0.00-0.03); Imm Gran Pct Auto 0.6 % (0.0-0.4); Lymphocytes Absolute Auto 1.3 X10*3/uL (1.2-4.9); Lymphocytes Percent Auto 27.1 % (20-40); Mean Corpuscular HGB Conc 33.3 g/dl (31.0-36.0); Mean Corpuscular Hemoglobin 34.6 pg (27.0-33.0); Mean Corpuscular Volume 103.7 fL (80.0-98.0); Mean Platelet Volume 10.6 fL (9.4-12.4); Monocytes Absolute Auto 0.8 X10*3/uL (0.1-1.2); Monocytes Percent Auto 16.5 % (2-11); Neutrophils Absolute Auto 2.1 x10*3/uL (2.0-8.3); Neutrophils Percent Auto 43.4 % (45-73); Platelet Count 267 X10*3/uL (160-400); Red Blood Count 4.28 X10*6/uL (4.60-5.80); Red Cell Distribution Width 14.3 % (11.0-16.0); White Blood Count 4.9 X10*3/uL (4.8-10.8)
[2024-08-26 12:15] LABS: Prostate Specific Antigen Scr 0.62 ng/mL (<0.05-4.0)
[2024-08-26 14:35] LABS: Alanine Aminotransferase 22 U/L (0-40); Albumin Level 3.9 g/dL (3.5-5.0); Alkaline Phosphatase 62 U/L (39-117); Anion Gap 8 (12-20); Aspartate Amino Transferase 39 U/L (5-37); Bilirubin Total 0.8 mg/dL (0.0-1.0); Blood Urea Nitrogen 11 mg/dL (9-16); Calcium 9.4 mg/dL (8.4-10.2); Carbon Dioxide 31 mmol/L (22-29); Chloride 106 mmol/L (96-108); Cholesterol 176 mg/dL (<200); Estimated Glomerular Filt Rate > 60; Glucose Fasting 89 mg/dL (60-99); HDL Cholesterol 69 mg/dL (>40); LDL Cholesterol Calculated 95 mg/dL (<100); Potassium 4.2 mmol/L (3.3-5.1); Sodium 141 mmol/L (135-145); TSH reflex Free T4 2.27 uIU/mL (0.32-4.0); Total Protein 7.5 g/dL (6.5-8.0); Triglycerides 61 mg/dL (<150)
== END 2024-08-26 08:08 | disposition home or self-care (01) ==
LOC: HO.WFDLDS 08:07
PROVIDERS: Visit Provider Nurse Practitioner Family
DX: E78.5 Hyperlipidemia, unspecified (principal); R97.20 Elevated prostate specific antigen [PSA]; R30.0 Dysuria; Z12.5 Encounter for screening for malignant neoplasm of prostate; G47.30 Sleep apnea, unspecified; Q89.01 Asplenia (congenital)
CPT/HCPCS: 36415; 80053; 80061; 81001; 84153; 84443; 85025

== ENCOUNTER 2024-11-04 15:20 | Outpatient (REF) | payer MEDICARE, OTHER, SELFPAY ==
--- OUTSIDE RECORDS SUMMARY | 2024-11-04 15:23 | XMS_ITS | Clinical Summary ---
Author Organization [facility] Address [address] [facility] [address] [place] [phone] Phone Care Team Providers Care Saw Setter Name Role Phone Unknown, Unknown Primary Care Provider Maryann meredith Social History Tobacco Use Types Packs/Day Years Used Date Smoking Tobacco: Never Assessed Education Answer Date Recorded Are you interested in more education? Not on klever e 07/20/2022 Are you concerned about learning? Not on file 07/20/2022 No 07/20/2022 No 07/20/2022 Digital Access Answer Date Recorded No 08/20/2022 No 08/20/2022 No 08/20/2022 Reliable internet access at home? Not on file 08/20/2022 Device with a working camera? Not on file Sex and Gender Information Value Date Recorded Sex Assigned at Not on file Legal Sex Male 9:57 PM EDT Gender Identity Not on file Sexual Orientation Not on file Plan of Treatment Not on file Medical Devices Not on file Care Teams Saw Setter Relationship Specialty Start Date End Date Unknown, Unknown, PCP - General 10/22/17 Additional Source Comments The information contained in this document represents components of the legal health record. It is not the complete legal health record.[facility]
--- OUTSIDE RECORDS SUMMARY | 2024-11-04 15:23 | XMS_ITS | Patient Health Record ---
Author Organization Carson Gilmore MD Address [address] [place], [place] [phone] Care Team Providers Care Senior Integration Developer Name Role Phone Carson Gilmore Primary Care Provider Results Component Value Reference Range Notes Urine Culture Reviewed date:01/24/2024 11:57:16 AM Interpretation: Performing Lab:[facility], [address] [place] [phone] Notes/Report: O:CITKOS Citrobacter koseri Urine Culture Quant Urine Culture > 100,000 cfu/mL Cefazolin 4 Cefepime <=0.12 Ceftriaxone <=0.25 Ciprofloxacin <=0.06 Gentamicin <=1 Nitrofurantoin 32 Trimethoprim/Sulfamethox azole <=20 UA ClnCatch+Micro w/rflx Cul t Reviewed date:01/21/2024 04:21:26 PM Interpretation: Performing Lab:[facility], [address] [place] [phone] Notes/Report: Urine, Clean Catch Color Urine Yellow Appearance Urine Turbid PH 6.0 5.0-9.0 Glucose Urine UA Negative Negative mg/dL Urine Blood Moderate (2+) Negative Specific [place] - Urine 1.025 1.005-1.025 Urine Protein 30 (1+) Neg-Trace mg/dL Urine Ketones Trace Negative mg/dL Nitrite Urine Positive Negative Leukocyte Esterase Urine Moderate (2+) Negative RBC Urine 3-5 0-2 /HPF WBC Urine >50 0-5 /HPF Squamous Epithelial Cell Urine 3-5 0-2 /HPF Bacteria Urine 4+ None Seen Hyaline Casts Urine 0-2 0-2 /LPF SARS-CoV2/FLU/RSV Reviewed date:04/16/2024 05:34:01 PM Interpretation: Performing Lab:[address] [phone] Notes/Report: Influenza A PCR NEGATIVE Negative Influenza [...] by authorized laboratories. Testing performed on the [employer] GeneXpert utilizing real-time RT-PCR. All SARS CoV2 and positive influenza A/B results are reported to [facility]. Prostate Specific Antigen Sc r Reviewed date:04/16/2024 05:32:40 PM Interpretation: Performing Lab:[address] [phone] Notes/Report: Prostate Specific Antigen Scr 0.39 <0.05-4.0 ng/mL PSA methodology: [employer] Alinity i Chemiluminescent Microparticle Immunoassay (CMIA) XR chest 2V Reviewed date:04/16/2024 05:33:41 PM Interpretation: Performing Lab: Notes/Report: [address] [address] XRay Report Signed Patient: Maria Alejandra Sullivan MR#: [id number] : 1955 Acct:[id number] Age/Sex: 68 / M ADM Date: 04/16/24 Loc: JENNY Attending Dr: Carson Gilmore MD Ordering Physician: Carson Gilmore MD Date of Service: 04/16/24 Procedure(s): XR chest 2V Accession Number(s): [id number] cc: Carson Gilmore MD; Ulices Tang [facility]- EXAMINATION: XR CHEST CLINICAL INFORMATION: ACUTE [...] 04/16/24 1501 DD/ 1430 TD/TT: 04/16/24 1453 Business Librarian: [place] [address] XRay Report Signed Patient: Maria Alejandra Sullivan MR#: [id number] : 1955 Acct:[id number] Age/Sex: 68 / M ADM Date: 04/16/24 Loc: HO.DANEAY Attending Dr: Carson Gilmore MD Ordering Physician: Carson Gilmore MD Date of Service: 04/16/24 Procedure(s): XR [address] 2V Accession Number(s): [id number] cc: Carson Glimore MD; Ulices Tang [facility] EXAMINATION: XR CHEST CLINICAL INFORMATION: ACUTE [...] 04/16/24 1501 DD/ 1430 TD/TT: 04/16/24 1453 Business Librarian: [facility] Reason For Referral No Information Medications Medication [...] Problem Status W/U Status Risk Notes Problem [id number] 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, 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 Encounters Encounter Location Date Provider Diagnosis Carson Gilmore MD [address] [place] [phone] 01/21/2024 Carson Gilmore UTI (urinary tract infection) N39.0 Carson Gilmore MD [address] [place] [phone] 04/16/2024 Carson Gilmore Infection, respiratory J98.8 Carson Gilmore MD [address] [place] [phone] 04/16/2024 Carson Gilmore Acute pneumonia J18.9 Assessments [...] Coverage End Date MEDICARE [address]IC [address] [place] [address] [id number] MARIA ALEJANDRA SULLIVAN Self - patient is the insured [address] [place] [phone] [id number] MARIA ALEJANDRA SULLIVAN Self - patient is the insured
[2024-11-04 17:45] LABS: Appearance Urine Cloudy; Glucose Urine UA Negative (Negative); PH 6.0 (5.0-9.0); Specific Gravity - Urine 1.025 (1.005-1.025); UMIC TRIGGER UACC YES
== END 2024-11-04 15:21 | disposition home or self-care (01) ==
LOC: HO.WFDLDS 15:20
PROVIDERS: Visit Provider Nurse Practitioner Family
DX: Z12.5 Encounter for screening for malignant neoplasm of prostate (principal); R97.20 Elevated prostate specific antigen [PSA]; E78.5 Hyperlipidemia, unspecified; G47.30 Sleep apnea, unspecified; R30.0 Dysuria; Q89.01 Asplenia (congenital)
CPT/HCPCS: 36415; 81001; 84153

== ENCOUNTER 2025-03-03 09:13 | Outpatient (REF) | payer MEDICARE, OTHER, SELFPAY | END 2025-03-03 09:14 | LOC: HO.WFDLDS 09:13 | PROVIDERS: Visit Provider Nurse Practitioner Family | DX: Z12.5 Encounter for screening for malignant neoplasm of prostate (principal) | CPT/HCPCS: 36415; 84153 ==